=== PATIENT | female | born 1935 | race Caucasian/White ===

== ENCOUNTER → 2016-06-30 | Outpatient (CLI) | payer MEDICARE, OTHER ==
[2016-06-30 11:08] LABS: ABSOLUTE BASOPHILS # (AUTO) 0.1 10^3/uL (0.0-0.2); ABSOLUTE EOSINOPHILS # (AUTO) 0.3 10^3/uL (0.0-0.6); ABSOLUTE LYMPHOCYTES (AUTO) 3.3 10^3/uL (0.5-4.7); ABSOLUTE NEUT (AUTO) 3.7 10^3/uL (1.7-8.2); BASOPHILS % (AUTO) 1.1 % (0-2); EOSINOPHILS % (AUTO) 3.8 % (0-6); HEMOGLOBIN 14.9 g/dL (12.0-15.5); HGB HCT DIFFERENCE 1.7; LYMPHOCYTES % (AUTO) 39.2 % (13-45); MEAN CORPUSCULAR HEMOGLOBIN 29.6 pg (27.0-33.4); MEAN CORPUSCULAR HGB CONC 34.7 g/dL (32.0-36.0); MEAN CORPUSCULAR VOLUME 85 fl (80-97); MONOCYTES % (AUTO) 11.7 % (3-13); RED BLOOD COUNT 5.04 10^6/uL (3.72-5.28); RED CELL DISTRIBUTION WIDTH 14.1 % (11.5-14.0); SEGMENTED NEUTROPHILS % (AUTO) 44.2 % (42-78); WHITE BLOOD COUNT 8.4 10^3/uL (4.0-10.5)
[2016-06-30 11:19] LABS: PROTHROMBIN TIME 26.9 SEC (11.4-15.4)
[2016-06-30 11:28] LABS: ALANINE AMINOTRANSFERASE 34 U/L (9-52); ALBUMIN 4.4 g/dL (3.5-5.0); ALKALINE PHOSPHATASE 107 U/L (38-126); ANION GAP 13 (5-19); ASPARTATE AMINO TRANSFERASE 38 U/L (14-36); BLOOD UREA NITROGEN 16 mg/dL (7-20); CALCIUM 9.8 mg/dL (8.4-10.2); CARBON DIOXIDE 30 mmol/L (22-30); CHLORIDE 99 mmol/L (98-107); CHOLESTEROL 158.31 mg/dL (0-200); CREATININE RESULT 0.99 mg/dL (0.52-1.25); Direct HDL 60 mg/dL (>40); GLUCOSE 96 mg/dL (75-110); POTASSIUM 4.1 mmol/L (3.6-5.0); SODIUM 142.2 mmol/L (137-145); TRIGLYCERIDES 92 mg/dL (<150)
[2016-06-30 11:39] LABS: DIRECT LDL 78 mg/dL (<100)
== END ==
LOC: OD 10:06
PROVIDERS: ATTEND Internal Medicine
DX: E11.9 Type 2 diabetes mellitus without complications (principal); I25.10 Atherosclerotic heart disease of native coronary artery without angina pectoris; R53.83 Other fatigue; E78.5 Hyperlipidemia, unspecified; I48.91 Unspecified atrial fibrillation
CPT/HCPCS: 36415; 80053; 80061; 83036; 83735; 84443; 85025; 85610

== ENCOUNTER → 2016-07-22 | Outpatient (CLI) | payer MEDICARE, OTHER ==
[2016-07-22 13:53] LABS: PROTHROMBIN TIME 26.7 SEC (11.4-15.4)
== END ==
LOC: OD 12:18
PROVIDERS: ATTEND Internal Medicine
DX: Z79.01 Long term (current) use of anticoagulants (principal)
CPT/HCPCS: 36415; 85610

== ENCOUNTER → 2016-09-05 | Outpatient (CLI) | payer MEDICARE, OTHER ==
[2016-09-05 12:54] LABS: PROTHROMBIN TIME 27.6 SEC (11.4-15.4)
== END ==
LOC: OD 11:44
PROVIDERS: ATTEND Internal Medicine
DX: Z51.81 Encounter for therapeutic drug level monitoring (principal); Z79.01 Long term (current) use of anticoagulants
CPT/HCPCS: 36415; 85610

== ENCOUNTER → 2016-10-10 | Outpatient (CLI) | payer MEDICARE, OTHER ==
[2016-10-10 12:31] LABS: PROTHROMBIN TIME 23.6 SEC (11.4-15.4)
== END ==
LOC: OD 11:22
PROVIDERS: ATTEND Internal Medicine
DX: Z51.81 Encounter for therapeutic drug level monitoring (principal); Z79.01 Long term (current) use of anticoagulants
CPT/HCPCS: 36415; 85610

== ENCOUNTER → 2016-11-28 | Outpatient (CLI) | payer MEDICARE, OTHER ==
[2016-11-28 13:43] LABS: PROTHROMBIN TIME 25.9 SEC (11.4-15.4)
== END ==
LOC: OD 12:32
PROVIDERS: ATTEND Internal Medicine
DX: Z79.01 Long term (current) use of anticoagulants (principal)
CPT/HCPCS: 36415; 85610

== ENCOUNTER → 2016-12-19 | Outpatient (CLI) | payer MEDICARE, OTHER ==
[2016-12-19 15:24] LABS: PROTHROMBIN TIME 22.9 SEC (11.4-15.4)
== END ==
LOC: OD 13:53
PROVIDERS: ATTEND Internal Medicine
DX: Z79.01 Long term (current) use of anticoagulants (principal)
CPT/HCPCS: 36415; 85610

== ENCOUNTER 2016-12-27 12:10 | Emergency (ER) | payer MEDICARE, OTHER ==
[2016-12-27 14:03] LABS: ABSOLUTE BASOPHILS # (AUTO) 0.1 10^3/uL (0.0-0.2); ABSOLUTE EOSINOPHILS # (AUTO) 0.2 10^3/uL (0.0-0.6); ABSOLUTE LYMPHOCYTES (AUTO) 2.7 10^3/uL (0.5-4.7); ABSOLUTE MONOCYTES (AUTO) 0.8 10^3/uL (0.1-1.4); ABSOLUTE NEUT (AUTO) 4.6 10^3/uL (1.7-8.2); BASOPHILS % (AUTO) 0.9 % (0-2); EOSINOPHILS % (AUTO) 2.8 % (0-6); HEMATOCRIT 41.6 % (36.0-47.0); HEMOGLOBIN 13.7 g/dL (12.0-15.5); HGB HCT DIFFERENCE -0.5; LYMPHOCYTES % (AUTO) 31.7 % (13-45); MEAN CORPUSCULAR HEMOGLOBIN 28.8 pg (27.0-33.4); MEAN CORPUSCULAR HGB CONC 32.8 g/dL (32.0-36.0); MEAN CORPUSCULAR VOLUME 88 fl (80-97); MONOCYTES % (AUTO) 9.9 % (3-13); RED BLOOD COUNT 4.74 10^6/uL (3.72-5.28); RED CELL DISTRIBUTION WIDTH 14.6 % (11.5-14.0); SEGMENTED NEUTROPHILS % (AUTO) 54.7 % (42-78); WHITE BLOOD COUNT 8.5 10^3/uL (4.0-10.5)
--- NOTE | 2016-12-27 14:06 | ER Document Report ---
ED General - General Chief Complaint: Laceration Stated Complaint: LACERATION TO RIGHT LEG Time Seen by Provider: 12/27/16 12:18 Mode of Arrival: Ambulatory Information source: Patient Notes: 81-year-old female who is on Coumadin for a history of A. fib presents with complaints of bleeding extensively from an abrasion to the right medial calf. Patient denies any other concerns denies any other injuries patient notes her Coumadin was checked yesterday it appears patient was recently started on antibiotics by my care physician TRAVEL OUTSIDE OF THE [place] IN LAST 30 DAYS: No - HPI Onset: Just prior to arrival Onset/Duration: Sudden Quality of pain: No pain Severity: Moderate Pain Level: Denies Associated symptoms: None Exacerbated by: Denies Relieved by: Denies Similar symptoms previously: No Recently seen / treated by doctor: No - Related Data Allergies/Adverse Reactions: [place] And Derivatives Allergy (Unknown, Verified 11/11/14 07:46) meperidine HCl [From Demerol] Allergy (Unknown, Verified 11/11/14 07:46) Sulfa (Sulfonamide Antibiotics) Allergy (Unknown, Verified 11/11/14 07:46) morphine [Morphine] Adverse Reaction (Intermediate, Verified 11/11/14 07:46) Vomiting amoxicillin trihydrate [From Augmentin] Adverse Reaction (Unknown, Verified 07:46) Potassium Clavulanate * [From Augmentin] Adverse Reaction (Unknown, Verified 07:46) Past Medical History - Social History Smoking Status: Never Smoker Cigarette use (# per day): No Chew tobacco use (# tins/day): No Smoking Education Provided: No Family History: Reviewed & Not Pertinent - Past Medical History Cardiac Medical History: Reports: Hx Atrial Fibrillation, Hx Coronary Artery Disease, Hx Hypercholesterolemia, Hx Hypertension Pulmonary Medical History: Reports: Hx COPD Endocrine Medical History: Reports: Hx Diabetes Mellitus Type 2 GI Medical History: Reports: Hx Gastroesophageal Reflux Disease Past Surgical History: Reports: Hx Bowel Surgery - exploratory, Hx Breast Surgery - cyst removal, Hx Cholecystectomy, Hx Hysterectomy, Hx Pancreatic Surgery - Immunizations Hx Diphtheria, Pertussis, Tetanus Vaccination: Yes Hx Pneumococcal Vaccination: 06/19/11 Review of Systems - Review of Systems Notes: REVIEW OF SYSTEMS: CONSTITUTIONAL : Denies fever, chills, or sweats. Denies recent illness. EENT: Denies eye, ear, throat, or mouth pain or symptoms. Denies nasal or sinus congestion or discharge. Denies throat, tongue, or mouth swelling or difficulty swallowing. CARDIOVASCULAR: Denies chest pain. Denies palpitations or racing or irregular heart beat. Denies ankle edema. RESPIRATORY: Denies cough, cold, or chest congestion. Denies shortness of breath, difficulty breathing, or wheezing. GASTROINTESTINAL: Denies abdominal pain or distention. Denies nausea, vomiting , or diarrhea. Denies blood in vomitus, stools, or per rectum. Denies black, tarry stools. Denies constipation. GENITOURINARY: Denies difficulty urinating, painful urination, burning, frequency, blood in urine, or discharge. MUSCULOSKELETAL: Denies back or neck pain or stiffness. Denies joint pain or swelling. SKIN: Denies rash, lesions or sores. HEMATOLOGIC : State easy bleeding LYMPHATIC: Denies swollen, enlarged glands. NEUROLOGICAL: Denies confusion or altered mental status. Denies passing out or loss of consciousness. Denies dizziness or lightheadedness. Denies headache. Denies weakness or paralysis or loss of use of either side. Denies problems with gait or speech. Denies sensory loss, numbness, or tingling. Denies seizures. PSYCHIATRIC: Denies anxiety or stress. Denies depression, suicidal ideation, or homicidal ideation. ALL OTHER SYSTEMS REVIEWED AND NEGATIVE. Dictation was performed using [employer] voice recognition software PHYSICAL EXAMINATION: GENERAL: Well-appearing, well-nourished and in no acute distress. HEAD: Atraumatic, normocephalic. EYES: Pupils equal round and reactive to light, extraocular movements intact, sclera anicteric, conjunctiva are normal. ENT: Nares patent, oropharynx clear without exudates. Moist mucous membranes. NECK: Normal range of motion, supple without lymphadenopathy LUNGS: Breath sounds clear to auscultation bilaterally and equal. No wheezes rales or rhonchi. HEART: Regular rate and rhythm without murmurs ABDOMEN: Soft, nontender, nondistended abdomen. No guarding, no rebound. No masses appreciated. Musculoskeletal: Normal range of motion, no pitting or edema. No cyanosis. NEUROLOGICAL: Cranial nerves grossly intact. Normal speech, normal gait. Normal sensory, motor exams PSYCH: Normal mood, normal affect. SKIN: Superficial abrasion of the right medial calf above the varicose vein Course - Re-evaluation Re-evalutation: 12/27/16 14:07 Patient did have a large amount of blood, this was cleaned and only a small abrasion noted, she was recently started on antibiotics therefore I will recheck her PT/INR 12/27/16 14:14 INR is noted to be 1.82, patient otherwise looks well will be discharged home After performing a Medical Screening Examination, I estimate there is LOW risk for OPEN FRACTURE, COMPARTMENT SYNDROME, TENDON RUPTURE, ACUTE NEUROVASCULAR INJURY, or RETAINED FOREIGN BODY, thus I consider the discharge disposition reasonable. Also, there is no evidence or peritonitis, sepsis, or toxicity. I have reevaluated this patient multiple times and no significant life threatening changes are noted. The patient and I have discussed the diagnosis and risks, and we agree with discharging home with close follow-up with the understanding that symptoms and presentations can change. We also discussed returning to the Emergency Department immediately if new or worsening symptoms occur. We have discussed the symptoms which are most concerning (e.g., changing or worsening pain, fever, numbness, weakness, cool or painful digits) that necessitate immediate return. - Laboratory Result Diagrams: 12/27/16 13:52 Laboratory results interpreted by me: 12/27/16 12/27/16 13:52 13:52 RDW 14.6 H PT 22.1 H Discharge - Discharge Clinical Impression: Active bleeding on blood thinner Condition: Stable Disposition: HOME, SELF-CARE Instructions: Delayed Wound Closure ([facility]), Puncture Wound ([facility]) Referrals: NARESH PERALES MD [Primary Care Provider] - Follow up tomorrow
[2016-12-27 14:07] LABS: PROTHROMBIN TIME 22.1 SEC (11.4-15.4)
[2016-12-27 14:48] VITALS: BP 171/84
== END 2016-12-27 14:46 | disposition home or self-care (01) ==
LOC: ER 12:10
DX: R58 Hemorrhage, not elsewhere classified (principal); I48.91 Unspecified atrial fibrillation; E11.9 Type 2 diabetes mellitus without complications; I25.10 Atherosclerotic heart disease of native coronary artery without angina pectoris; E78.00 Pure hypercholesterolemia, unspecified; I10 Essential (primary) hypertension; J44.9 Chronic obstructive pulmonary disease, unspecified; K21.9 Gastro-esophageal reflux disease without esophagitis; Z79.02 Long term (current) use of antithrombotics/antiplatelets; Z88.2 Allergy status to sulfonamides; Z88.6 Allergy status to analgesic agent; Z90.49 Acquired absence of other specified parts of digestive tract; Z90.710 Acquired absence of both cervix and uterus
CPT/HCPCS: 36415; 85025; 85610; 99283

== ENCOUNTER → 2017-01-09 | Outpatient (CLI) | payer MEDICARE, OTHER ==
[2017-01-09 12:33] LABS: PROTHROMBIN TIME 22.5 SEC (11.4-15.4)
== END ==
LOC: OD 11:39
PROVIDERS: ATTEND Internal Medicine
DX: Z51.81 Encounter for therapeutic drug level monitoring (principal); Z79.01 Long term (current) use of anticoagulants
CPT/HCPCS: 36415; 85610

== ENCOUNTER → 2017-01-23 | Outpatient (CLI) | payer MEDICARE, OTHER ==
[2017-01-23 13:09] LABS: PROTHROMBIN TIME 26.5 SEC (11.4-15.4)
== END ==
LOC: OD 12:28
PROVIDERS: ATTEND Internal Medicine
DX: Z51.81 Encounter for therapeutic drug level monitoring (principal); Z79.01 Long term (current) use of anticoagulants
CPT/HCPCS: 36415; 85610

== ENCOUNTER → 2017-02-23 | Outpatient (CLI) | payer MEDICARE, OTHER ==
[2017-02-23 14:52] LABS: PROTHROMBIN TIME 21.1 SEC (11.4-15.4)
== END ==
LOC: OD 10:31
PROVIDERS: ATTEND Internal Medicine
DX: Z79.01 Long term (current) use of anticoagulants (principal)
CPT/HCPCS: 36415; 85610

== ENCOUNTER → 2017-03-31 | Outpatient (CLI) | payer MEDICARE, OTHER ==
[2017-03-31 12:31] LABS: PROTHROMBIN TIME 25.7 SEC (11.4-15.4)
== END ==
LOC: OD 11:24
PROVIDERS: ATTEND Internal Medicine
DX: Z79.01 Long term (current) use of anticoagulants (principal)
CPT/HCPCS: 36415; 85610

== ENCOUNTER → 2017-05-02 | Outpatient (CLI) | payer MEDICARE, OTHER | LOC: OD 12:12 | PROVIDERS: ATTEND Internal Medicine | DX: Z51.81 Encounter for therapeutic drug level monitoring (principal); Z79.01 Long term (current) use of anticoagulants | CPT/HCPCS: 36415; 85610 ==

== ENCOUNTER → 2017-06-09 | Outpatient (CLI) | payer MEDICARE, OTHER | LOC: OD 11:59 | PROVIDERS: ATTEND Internal Medicine | DX: I48.0 Paroxysmal atrial fibrillation (principal); Z79.01 Long term (current) use of anticoagulants | CPT/HCPCS: 36415; 85610 ==

== ENCOUNTER → 2017-07-13 | Outpatient (CLI) | payer MEDICARE, OTHER ==
[2017-07-13 12:02] LABS: INTERNATIONAL RATION (INR) 2.75; PROTHROMBIN TIME 30.5 SEC (11.4-15.4)
== END ==
LOC: OD 10:55
PROVIDERS: ATTEND Internal Medicine
DX: I48.0 Paroxysmal atrial fibrillation (principal); Z79.01 Long term (current) use of anticoagulants
CPT/HCPCS: 36415; 85610

== ENCOUNTER → 2017-08-28 | Outpatient (CLI) | payer MEDICARE, OTHER ==
[2017-08-28 14:14] LABS: INTERNATIONAL RATION (INR) 1.91; PROTHROMBIN TIME 22.9 SEC (11.4-15.4)
== END ==
LOC: OD 12:42
PROVIDERS: ATTEND Internal Medicine
DX: I48.0 Paroxysmal atrial fibrillation (principal); Z79.01 Long term (current) use of anticoagulants
CPT/HCPCS: 36415; 85610

== ENCOUNTER → 2017-09-14 | Outpatient (CLI) | payer MEDICARE, OTHER ==
[2017-09-14 15:08] LABS: PROTHROMBIN TIME 25.6 SEC (11.4-15.4)
== END ==
LOC: OD 13:27
PROVIDERS: ATTEND Internal Medicine
DX: I48.0 Paroxysmal atrial fibrillation (principal); Z79.01 Long term (current) use of anticoagulants
CPT/HCPCS: 36415; 85610

== ENCOUNTER → 2017-10-18 | Outpatient (CLI) | payer MEDICARE, OTHER ==
[2017-10-18 15:45] LABS: PROTHROMBIN TIME 28.2 SEC (11.4-15.4)
== END ==
LOC: OD 14:29
PROVIDERS: ATTEND Internal Medicine
DX: I48.0 Paroxysmal atrial fibrillation (principal); Z79.01 Long term (current) use of anticoagulants
CPT/HCPCS: 36415; 85610

== ENCOUNTER → 2017-11-24 | Outpatient (CLI) | payer MEDICARE, OTHER ==
[2017-11-24 14:57] LABS: INTERNATIONAL RATION (INR) 2.72; PROTHROMBIN TIME 30.1 SEC (11.4-15.4)
== END ==
LOC: OD 13:58
PROVIDERS: ATTEND Internal Medicine
DX: I48.2 Chronic atrial fibrillation (principal)
CPT/HCPCS: 36415; 85610

== ENCOUNTER → 2018-01-01 | Outpatient (CLI) | payer MEDICARE, OTHER ==
[2018-01-01 12:43] LABS: INTERNATIONAL RATION (INR) 2.38; PROTHROMBIN TIME 27.1 SEC (11.4-15.4)
== END ==
LOC: OD 11:40
PROVIDERS: ATTEND Internal Medicine
DX: I48.2 Chronic atrial fibrillation (principal)
CPT/HCPCS: 36415; 85610

== ENCOUNTER → 2018-01-19 | Outpatient (CLI) | payer MEDICARE, OTHER ==
[2018-01-19 14:13] LABS: INTERNATIONAL RATION (INR) 2.43; PROTHROMBIN TIME 27.6 SEC (11.4-15.4)
== END ==
LOC: OD 13:18
PROVIDERS: ATTEND Internal Medicine
DX: I48.2 Chronic atrial fibrillation (principal)
CPT/HCPCS: 36415; 85610

== ENCOUNTER → 2018-04-02 | Outpatient (CLI) | payer MEDICARE, OTHER ==
[2018-04-02 13:54] LABS: INTERNATIONAL RATION (INR) 1.68; PROTHROMBIN TIME 20.6 SEC (11.4-15.4)
== END ==
LOC: OD 12:44
PROVIDERS: ATTEND Internal Medicine
DX: I48.2 Chronic atrial fibrillation (principal)
CPT/HCPCS: 36415; 85610

== ENCOUNTER → 2018-04-17 | Outpatient (CLI) | payer MEDICARE, OTHER ==
[2018-04-17 15:52] LABS: INTERNATIONAL RATION (INR) 4.04; PROTHROMBIN TIME 41.1 SEC (11.4-15.4)
== END ==
LOC: OD 14:24
PROVIDERS: ATTEND Internal Medicine
DX: I48.2 Chronic atrial fibrillation (principal)
CPT/HCPCS: 36415; 85610

== ENCOUNTER → 2018-05-16 | Outpatient (CLI) | payer MEDICARE, OTHER ==
[2018-05-16 12:25] LABS: INTERNATIONAL RATION (INR) 2.29; PROTHROMBIN TIME 26.3 SEC (11.4-15.4)
== END ==
LOC: OD 11:37
PROVIDERS: ATTEND Internal Medicine
DX: I48.2 Chronic atrial fibrillation (principal)
CPT/HCPCS: 36415; 85610

== ENCOUNTER 2018-07-28 13:16 | Inpatient (IN) | payer MEDICARE ==
[2018-07-28 14:06] LABS: ABSOLUTE BASOPHILS # (AUTO) 0.1 10^3/uL (0.0-0.2); ABSOLUTE LYMPHOCYTES (AUTO) 1.2 10^3/uL (0.5-4.7); ABSOLUTE MONOCYTES (AUTO) 1.1 10^3/uL (0.1-1.4); ABSOLUTE NEUT (AUTO) 5.1 10^3/uL (1.7-8.2); BASOPHILS % (AUTO) 0.8 % (0-2); EOSINOPHILS % (AUTO) 0.5 % (0-6); HEMATOCRIT 43.7 % (36.0-47.0); HEMOGLOBIN 14.9 g/dL (12.0-15.5); LYMPHOCYTES % (AUTO) 15.8 % (13-45); MEAN CORPUSCULAR HEMOGLOBIN 30.3 pg (27.0-33.4); MEAN CORPUSCULAR HGB CONC 34.1 g/dL (32.0-36.0); MEAN CORPUSCULAR VOLUME 89 fl (80-97); MONOCYTES % (AUTO) 14.8 % (3-13); PLATELET COUNT 178 10^3/uL (150-450); RED BLOOD COUNT 4.91 10^6/uL (3.72-5.28); RED CELL DISTRIBUTION WIDTH 14.3 % (11.5-14.0); SEGMENTED NEUTROPHILS % (AUTO) 68.1 % (42-78); TOTAL CELLS COUNTED % (AUTO) 100 %; WHITE BLOOD COUNT 7.5 10^3/uL (4.0-10.5)
[2018-07-28 14:21] LABS: ALANINE AMINOTRANSFERASE 20 U/L (9-52); ALBUMIN 4.9 g/dL (3.5-5.0); ALKALINE PHOSPHATASE 104 U/L (38-126); ANION GAP 13 (5-19); ASPARTATE AMINO TRANSFERASE 49 U/L (14-36); BILIRUBIN,DIRECT 0.4 mg/dL (0.0-0.4); BILIRUBIN,TOTAL 1.1 mg/dL (0.2-1.3); BLOOD UREA NITROGEN 14 mg/dL (7-20); CALCIUM 9.3 mg/dL (8.4-10.2); CARBON DIOXIDE 28 mmol/L (22-30); CHLORIDE 97 mmol/L (98-107); CREATINE KINASE 83 U/L (30-135); GLUCOSE 138 mg/dL (75-110); SODIUM 138.4 mmol/L (137-145); TOTAL PROTEIN 8.9 g/dL (6.3-8.2)
[2018-07-28 14:33] LABS: TROPONIN I < 0.012 ng/mL
[2018-07-28 15:24] LABS: APPEARANCE,URINE CLEAR; COLOR,URINE STRAW; GLUCOSE, URINE NEGATIVE (NEGATIVE)
--- NOTE | 2018-07-28 15:24 | RADIOLOGY REPORT (SQ) ---
EXAM DESCRIPTION: CHEST SINGLE VIEW COMPLETED DATE/TIME: 07/28/2018 2:36 pm REASON FOR STUDY: Cough, altered mental status COMPARISON: None. EXAM PARAMETERS: NUMBER OF VIEWS: One view. TECHNIQUE: Single frontal radiographic view of the chest acquired. RADIATION DOSE: NA LIMITATIONS: None. FINDINGS: LUNGS AND PLEURA: No acute infiltrates or effusions. Blunting left costophrenic angle con sistent with pleural thickening. Bilateral apical pleural thickening. MEDIASTINUM AND HILAR STRUCTURES: No masses. Contour normal. HEART AND VASCULAR STRUCTURES: Normal heart size and aortic atherosclerosis. Pulmonary vasculature i s normal. Aortic atherosclerosis. BONES: No acute findings. HARDWARE: None in the chest. OTHER: No other significant finding. IMPRESSION: NO ACUTE DISEASE. TECHNICAL DOCUMENTATION: JOB ID: [id number] [id number] 2010 [employer]- All Rights Reserved Reading location - IP/workstation name: [email or web address]
[2018-07-28 15:25] LABS: BILIRUBIN,URINE NEGATIVE (NEGATIVE); KETONES,URINE NEGATIVE (NEGATIVE); LEUKOCYTE ESTERASE,URINE NEGATIVE (NEGATIVE); NITRITE,URINE NEGATIVE (NEGATIVE); PROTEIN,URINE NEGATIVE (NEGATIVE); UROBILINOGEN,URINE NEGATIVE mg/dL (<2.0)
--- NOTE | 2018-07-28 16:34 | RADIOLOGY REPORT (SQ) ---
EXAM DESCRIPTION: CT HEAD WITHOUT COMPLETED DATE/TIME: 07/28/2018 4:01 pm REASON FOR STUDY: Altered mental status COMPARISON: None. TECHNIQUE: Axial images acquired through the brain without intravenous contrast. Images reviewed wi th bone, brain and subdural windows. Images stored on PACS. All CT scanners at this facility use dose modulation, iterative reconstruction, and/or weight based d osing when appropriate to reduce radiation dose to as low as reasonably achievable (ALARA). [facility]: Dose Right [facility]: CareDose [facility]: Dose Right [facility]: Teradose 4D [facility]: Gamervision RADIATION DOSE: CT Rad equipment meets quality standard of care and radiation dose reduction techniq ues were employed. CTDIvol: 53.2 mGy. DLP: 991 mGy-cm. mGy. LIMITATIONS: None. FINDINGS: VENTRICLES: Prominent. CEREBRUM: No masses. No hemorrhage. No midline shift. Areas of low density in the white matter mos t likely due to chronic micro-vascular ischemic change. No evidence for acute infarction. CEREBELLUM: No masses. No hemorrhage. No alteration of density. No evidence for acute infarction. EXTRAAXIAL SPACES: Mild age-related involutional change. No fluid collections. No masses. ORBITS AND GLOBE: No intra- or extraconal masses. Normal contour of globe without masses. CALVARIUM: No fracture. PARANASAL SINUSES: Small left maxillary sinus air-fluid level. SOFT TISSUES: No mass or hematoma. OTHER: No other significant finding. IMPRESSION: No acute intracranial findings. Acute appearing Left maxillary sinusitis. EVIDENCE OF ACUTE STROKE: NO. TECHNICAL DOCUMENTATION: JOB ID: [id number] Quality ID # [id number]: Final reports with documentation of one or more dose reduction techniques (e.g., Au tomated exposure control, adjustment of the mA and/or kV according to patient size, use of iterative reconstruction technique) 2010 [employer]- All Rights Reserved Reading location - IP/workstation name: [email or web address]
--- NOTE | 2018-07-28 16:45 | ER Document Report ---
ED Dizziness/Weakness - General Chief Complaint: General Weakness Stated Complaint: COUGH/CONGESTION Time Seen by Provider: 07/28/18 14:05 TRAVEL OUTSIDE OF THE [place] IN LAST 30 DAYS: No - HPI Notes: Patient presents to the emergency department for evaluation. Her daughter is the primary historian. Evidently the patient has had a cough over the last several days. This morning she has been exceptionally weak. She is unable to walk without assistance. She seems to be falling asleep in the middle of conversations. This is a significant change from her baseline. Patient also notes she has had some dysuria. - Related Data Allergies/Adverse Reactions: [place] And Derivatives Allergy (Unknown, Verified 07/28/18 13:19) meperidine HCl [From Demerol] Allergy (Unknown, Verified 07/28/18 13:19) Sulfa (Sulfonamide Antibiotics) Allergy (Unknown, Verified 07/28/18 13:19) morphine [Morphine] Adverse Reaction (Intermediate, Verified 07/28/18 13:19) Vomiting amoxicillin trihydrate [From Augmentin] Adverse Reaction (Unknown, Verified 07/28/18 13:19) Potassium Clavulanate * [From Augmentin] Adverse Reaction (Unknown, Verified 07/28/18 13:19) Past Medical History - General Information source: Patient, Relative - Daughter - Social History Smoking Status: Never Smoker Family History: Reviewed & Not Pertinent Patient has suicidal ideation: No Patient has homicidal ideation: No - Past Medical History Cardiac Medical History: Reports: Hx Atrial Fibrillation, Hx Coronary Artery Disease, Hx Hypercholesterolemia, Hx Hypertension Pulmonary Medical History: Reports: Hx COPD Endocrine Medical History: Reports: Hx Diabetes Mellitus Type 2 Renal/ Medical History: Denies: Hx Peritoneal Dialysis GI Medical History: Reports: Hx Gastroesophageal Reflux Disease Past Surgical History: Reports: Hx Bowel Surgery - exploratory, Hx Breast Surgery - cyst removal, Hx Cholecystectomy, Hx Hysterectomy, Hx Pancreatic Surgery - Immunizations Hx Diphtheria, Pertussis, Tetanus Vaccination: Yes Hx Pneumococcal Vaccination: 06/19/11 Review of Systems - Review of Systems Constitutional: Malaise EENT: No symptoms reported Respiratory: Cough Genitourinary: Dysuria Musculoskeletal: No symptoms reported Skin: No symptoms reported Hematologic/Lymphatic: No symptoms reported Neurological/Psychological: No symptoms reported Physical Exam - Vital signs Vitals: Temp Pulse Resp BP Pulse Ox 98.7 F 79 20 149/65 H 95 07/28/18 13:31 07/28/18 13:31 07/28/18 13:31 07/28/18 13:31 07/28/18 13:31 Notes: Patient mildly hypertensive, but otherwise unremarkable - Notes Notes: Patient is normocephalic, atraumatic. Pupils equal round reactive to light. Oral mucosa is moist, pharynx is without erythema or exudate. Neck is supple without thyromegaly or adenopathy. No meningismus. Heart is regular rate and rhythm. Lungs are clear to auscultation bilaterally. Abdomen is soft nontender with normoactive bowel sounds. Extremities without cyanosis, clubbing, edema. Patient is drowsy. She is able to answer questions but falls asleep after many of them. She is oriented to person, place, time. She moves all 4 extremities spontaneously. She is cooperative with examiner. Skin is warm and dry. Course - Re-evaluation Re-evalutation: 07/28/18 16:42 Patient presents to the emergency department for evaluation of altered mental status. She is definitely drowsy but her vital signs are unremarkable. She is protecting her own airway. Laboratory investigations were largely unremarkable. Catheterized urine specimen does not reveal any signs of infection. CT scan is unremarkable for anything acute or cranially, and she continues to have no focal neurological deficits. There is a note of some left maxillary sinusitis. I am unsure of the etiology of this patient's altered mental status at this time. Her chest x-ray is unremarkable. Will admit the patient for further care. 07/28/18 18:33 Patient is already admitted. There is no clear etiology for her altered mental status. I was notified of her becoming nauseated and complaining of some abdominal pain. Abdomen was examined. It was soft and diffusely tender. CT scan of the abdomen and pelvis with IV contrast ordered. She is given more IV Zofran. - Vital Signs Vital signs: Temp Pulse Resp BP Pulse Ox 98.8 F 120 H 22 H 153/92 H 96 07/28/18 18:20 07/28/18 18:20 07/28/18 18:20 07/28/18 18:20 07/28/18 18:20 - Laboratory Result Diagrams: 07/28/18 13:50 07/28/18 13:50 Laboratory results interpreted by me: 02/03/0707/28/18 07/28/18 13:50 13:50 14:57 RDW 14.3 H Monocytes % 14.8 H Chloride 97 L Est GFR (Non-Af Amer) 54 L Glucose 138 H AST 49 H Total Protein 8.9 H Urine Blood SMALL H - Diagnostic Test Radiology reviewed: Image reviewed, Reports reviewed - EKG Interpretation by Me Additional EKG results interpreted by me: 07/28/18 16:41 EKG reveals atrial fibrillation with a rate of [address]-T wave changes but no acute changes concerning for ischemia or infarction. Discharge - Discharge Clinical Impression: Altered mental status, unspecified Qualifiers: Altered mental status type: disorientation Qualified Code(s): R41.0 - Disorientation, unspecified Condition: Fair Disposition: ADMITTED INPATIENT Admitting Provider: Hospitalist - Ivan Unit Admitted: Medical Floor
[2018-07-28] MEDS ORDERED: ONDANSETRON 4 MG TAB.RAPDIS PO PRN (17:28)
[2018-07-28] MEDS ORDERED: ACETAMINOPHEN 325 MG TABLET PO PRN (17:28)
[2018-07-28] MEDS ORDERED: IPRATROPIUM/ALBUTEROL 0.5-2.5 MG/3 ML AMPUL NEB PRN (17:45)
--- NOTE | 2018-07-28 18:09 | PDOC H&P ---
History of Present Illness Admission Date/PCP: 07/28/18 17:25 NARESH PERALES MD Patient complains of: confusion, weakness History of Present Illness: DEVANG CORONEL is a 83 year old female with history of multiple co-morbidities including chronic Afib, HTN, T2DM, dementia, and RLS who presents with 1 day of altered mental status, generalized weakness, and somnolence. Due to AMS, majority of history was obtained from patient's daughter who was bedside in the ED. Patient was in her usual health 48 hours ago. Notable history dates back to 2 weeks ago, when she was treated for bronchitis/respiratory illness by her PCP. There was also concern for shingles however it is unclear if she received anti- virals due to intolerance with antibiotics. Patient completed course and was doing OK. She did complain of coughing and subjective fevers over the last few days. Patient's daughter has similar symptomology. However this morning, patient significantly worse than previous. She was unable to stay awake despite prompting. She also complained of weakness and was unable to get up by herself. She continues to have cough. Unable to obtain additional information form patient. She does open eyes when prompted. Unable to localize pain or any focal symptoms however does appear uncomfortable. She did tell RN in ED that he was having urinary pain/discomfort. Work up in ED was largely unremarkable. CXR, UA, and CT head were negative for acute abnormalities. Labs were also unrevealing. Will admit to hospitalist service on telemetry for further evaluation. Past Medical History Cardiac Medical History: Reports: Atrial Fibrillation, Coronary Artery Disease, Hyperlipidema, Hypertension Pulmonary Medical History: Reports: Chronic Obstructive Pulmonary Disease (COPD) Endocrine Medical History: Reports: Diabetes Mellitus Type 2 GI Medical History: Reports: Gastroesophageal Reflux Disease Past Surgical History Past Surgical History: Reports: Cholecystectomy, Hysterectomy Social History Information Source: Relative - Daughter Lives with: Alone Smoking Status: Never Smoker Frequency of Alcohol Use: None Hx Recreational Drug Use: No Hx Prescription Drug Abuse: No Family History Family History: Reviewed & Not Pertinent Parental Family History Reviewed: No Children Family History Reviewed: NA Sibling(s) Family History Reviewed.: NA Medication/Allergy Home Medications: Amlodipine Besylate [Norvasc 5 mg Tablet] 5 mg PO DAILY 11/11/14 Aspirin [Aspirin EC] 81 mg PO DAILY 11/11/14 Atorvastatin Calcium [Lipitor] 20 mg PO DAILY 11/11/14 Cholecalciferol (Vitd3)/Vit K2 [D3 + K2 Dots 1,000 Units Tab] 1 each PO [id number] 11/11/14 Donepezil HCl [Aricept] 10 mg PO DAILY 11/11/14 Fluticasone/Salmeterol [Advair 250-50 Diskus 14 Dose/Diskus] 1 puff .ROUTE BID 11/11/14 Levothyroxine Sodium [Synthroid] 100 mcg PO DAILY 11/11/14 Metformin HCl [Glucophage XR 500 mg Tablet] 500 mg PO BID 11/11/14 Metoprolol Tartrate [Lopressor 25 mg Tablet] 0.25 tab PO BID 11/11/14 Mometasone Furoate [Nasonex] 50 mcg NAINH DAILY 11/11/14 Multivit with Calcium,Iron,Min [Multiple Vitamins For Women] 1 tab-cap PO DAILY 11/11/14 Nitroglycerin [Nitro-Dur 5 mg (0.2 mg/Hr) Transdermal Patch] 1 patch TD QAM 11/11/14 Omeprazole 20 mg PO DAILY 11/11/14 Pregabalin [Lyrica 75 mg Capsule] 75 mg PO DAILY 11/11/14 Sertraline HCl [Zoloft 50 mg Tablet] 50 mg PO DAILY 11/11/14 Tiotropium [place] [Spiriva Handihaler 18 mcg/dose (30 Dose)] 1 cap IH DAILY 11/11/14 Warfarin Sodium [Coumadin 5 mg Tablet] 5 mg PO DAILY 11/11/14 Ipratropium/Albuterol Sulfate [Combivent Respimat 4 gm Mdi] 1 puff IH Q6 PRN #1 [email or web address] 12/04/15 Allergies/Adverse Reactions: [place] And Derivatives Allergy (Unknown, Verified 07/28/18 13:19) meperidine HCl [From Demerol] Allergy (Unknown, Verified 07/28/18 13:19) Sulfa (Sulfonamide Antibiotics) Allergy (Unknown, Verified 07/28/18 13:19) morphine [Morphine] Adverse Reaction (Intermediate, Verified 07/28/18 13:19) Vomiting amoxicillin trihydrate [From Augmentin] Adverse Reaction (Unknown, Verified 07/28/18 13:19) Potassium Clavulanate * [From Augmentin] Adverse Reaction (Unknown, Verified 07/28/18 13:19) Review of Systems ROS unobtainable: Due to mental status - Per HPI with discussion with daughter Physical Exam Vital Signs: Temp Pulse Resp BP Pulse Ox 98.7 F 79 21 H 166/83 H 93 07/28/18 13:31 07/28/18 13:31 07/28/18 17:01 07/28/18 17:01 07/28/18 17:01 Intake & Output 07/27/18 07/28/18 07/29/18 06:59 06:59 06:59 Weight 70.45 kg General appearance: PRESENT: mild distress - General discomfort, well-developed, well-nourished Head exam: PRESENT: atraumatic, normocephalic Eye exam: PRESENT: EOMI, PERRLA Mouth exam: PRESENT: moist Cardiovascular exam: PRESENT: irregular rhythm, tachycardia, other GI/Abdominal exam: PRESENT: normal bowel sounds, soft, tenderness - Patient grimaced during exam but not localizing to any quadrant Extremities exam: ABSENT: +1 edema Neurological exam: PRESENT: other - Limited exam. Will open eyes and answers some questions. Speech fluent but not answering all questions appropriately. Psychiatric exam: PRESENT: anxious Skin exam: PRESENT: dry, intact, other - Unable to assess sacral area due to lack of patient cooperation Results Laboratory Results: 07/28/18 13:50 07/28/18 13:50 07/28/18 07/28/18 07/28/18 13:50 13:50 14:57 WBC 7.5 RBC 4.91 Hgb 14.9 Hct 43.7 MCV 89 MCH 30.3 MCHC 34.1 RDW 14.3 H Plt Count 178 Seg Neutrophils % 68.1 Lymphocytes % 15.8 Monocytes % 14.8 H Eosinophils % 0.5 Basophils % 0.8 Absolute Neutrophils 5.1 Absolute Lymphocytes 1.2 Absolute Monocytes 1.1 Absolute Eosinophils 0.0 Absolute Basophils 0.1 Sodium 138.4 Potassium 4.0 Chloride 97 L Carbon Dioxide 28 Anion Gap 13 BUN 14 Creatinine 0.98 Est GFR ( Amer) > 60 Est GFR (Non-Af Amer) 54 L Glucose 138 H Calcium 9.3 Total Bilirubin 1.1 AST 49 H ALT 20 Alkaline Phosphatase 104 Total Protein 8.9 H Albumin 4.9 Urine Color STRAW Urine Appearance CLEAR Urine pH 6.0 Ur Specific [place] 1.010 Urine Protein NEGATIVE Urine Glucose (UA) NEGATIVE Urine Ketones NEGATIVE Urine Blood SMALL H Urine Nitrite NEGATIVE Ur Leukocyte Esterase NEGATIVE 07/28/18 07/28/18 13:50 13:50 Creatine Kinase 83 CK-MB (CK-2) 0.40 Troponin I < 0.012 Impressions: Chest X-Ray 07/28/18 14:21 IMPRESSION: NO ACUTE DISEASE. Head CT 07/28/18 15:49 IMPRESSION: No acute intracranial findings. Acute appearing Left maxillary sinusitis. EVIDENCE OF ACUTE STROKE: NO. Assessment & Plan - Diagnosis (1) Altered mental status, unspecified Qualifiers: Altered mental status type: disorientation Qualified Code(s): R41.0 - Disorientation, unspecified Is this a current diagnosis for this admission?: Yes Plan: Unclear etiology. Acute presentation. Only localizing complaint is dysuria which patient noted to ED staff. - Afebrile and hemodynamically stable - Xray negative - U/A non-revealing - CT head without acute abnormality - Blood cultures pending Management - While no clear source of infection, will give Rocephin empirically * 1 dose - Holding sedating home meds such as Lyrica - Will check TSH given history of hypothyroidism (2) Diabetes mellitus Is this a current diagnosis for this admission?: Yes Plan: Holding home metformin - Ordered blood checks qAC/HS - Ordered low dose ISS (3) Atrial fibrillation Is this a current diagnosis for this admission?: Yes Plan: -Restarted home afib/cardiac medications - Restarted Warfarin 5mg daily - Will check INR in AM (4) Chronic obstructive lung disease Is this a current diagnosis for this admission?: Yes Plan: - Holding home meds - Ordered Duonebs q4 hours PRN - Time Time Spent: 50 to 70 Minutes Critical Time spent with patient: 15-24 minutes Medications reviewed and adjusted accordingly: Yes - Inpatient Certification Medical Necessity: Risk of Complication if Not Cared For in Hospital
[2018-07-28] MEDS ORDERED: ONDANSETRON HCL INJ/PF 4 MG/2 ML SDV ONE (18:24)
[2018-07-28] MEDS ORDERED: ONDANSETRON HCL INJ/PF 4 MG/2 ML SDV IV ONE (18:27)
[2018-07-28] MEDS ORDERED: CEFTRIAXONE 1 GM/D5W RTU 1 GM/50 ML RTUPB IV ONE (19:00)
[2018-07-28] MEDS ORDERED: METOPROLOL TARTRATE 25 MG TABLET PO ONE (19:08)
[2018-07-28] MEDS: METOPROLOL TARTRATE 25 MG TABLET PO SCH (19:10)
--- NOTE | 2018-07-28 20:13 | EKG REPORT ---
SEVERITY:- ABNORMAL ECG - ATRIAL FIBRILLATION, V-RATE 72-103 BORDERLINE RIGHT AXIS DEVIATION NONSPECIFIC REPOL ABNORMALITY, DIFFUSE LEADS BORDERLINE PROLONGED QT INTERVAL : Confirmed by: Lynette Yan 28-Jul-2018 20:12:55
--- NOTE | 2018-07-28 20:22 | RADIOLOGY REPORT (SQ) ---
EXAM DESCRIPTION: CT ABDOMEN PELVIS WITH IV CONTRAST COMPLETED DATE/TME: 07/28/2018 18:26 CLINICAL HISTORY: 83 years, Female, Abdominal pain, altered mental status COMPARISON: None. TECHNIQUE: [id number] Images stored on PACS. All CT scanners at this facility use dose modulation, iterative reconstruction, and/or weight based dosing when appropriate to reduce radiation dose to as low as reasonably achievable (ALARA). [facility]: Dose Right [facility]: CareDose [facility]: Dose Right [facility]: Teradose 4D [facility]: Voxy LIMITATIONS: None. FINDINGS: Limited evaluation of the lung bases shows cardiomegaly with subsegmental atelectasis in each lung base. Breathing motion artifact is noted. Osseous structures show degenerative changes of the lumbar spine but are otherwise grossly intact. Fatty infiltrative change to the liver. Status post cholecystectomy. The spleen, adrenal glands, pancreas, kidneys are unremarkable. Severe atheromatous change. No gross evidence for bowel structure and. Sigmoid diverticulosis. No significant surrounding inflammation to suggest acute diverticulitis. The appendix is not well seen however there is no pericecal inflammation. No free air or free fluid. Urinary bladder is not distended, limiting its evaluation. IMPRESSION: Negative for acute intra-abdominal/pelvic process. Sigmoid diverticulosis. No CT evidence for diverticulitis. Fatty infiltrative change to the liver. Severe atheromatous change. Cardiomegaly. TECHNICAL DOCUMENTATION: Quality ID # 436: Final reports with documentation of one or more dose reduction techniques (e.g., Automated exposure control, adjustment of the mA and/or kV according to patient size, use of iterative reconstruction technique) copyright 2011 [employer]- All Rights Reserved
[2018-07-28] MEDS: 1/2 NORMAL SALINE 1,000 ML IV PRN (20:31)
[2018-07-28] MEDS: WARFARIN SODIUM 5 MG TABLET PO SCH (23:04)
[2018-07-28] MEDS ORDERED: SERTRALINE HCL 50 MG TABLET PO ONE (23:15)
[2018-07-28] MEDS ORDERED: DONEPEZIL HCL 5 MG TABLET PO ONE (23:15)
[2018-07-29] MEDS: ACETAMINOPHEN 325 MG TABLET PO PRN ×3 (03:28→18:09)
[2018-07-29 05:00] LABS: ABSOLUTE BASOPHILS # (AUTO) 0.1 10^3/uL (0.0-0.2); ABSOLUTE LYMPHOCYTES (AUTO) 1.5 10^3/uL (0.5-4.7); ABSOLUTE NEUT (AUTO) 3.6 10^3/uL (1.7-8.2); BASOPHILS % (AUTO) 0.8 % (0-2); EOSINOPHILS % (AUTO) 0.1 % (0-6); HEMATOCRIT 40.7 % (36.0-47.0); HEMOGLOBIN 14.2 g/dL (12.0-15.5); LYMPHOCYTES % (AUTO) 24.4 % (13-45); MEAN CORPUSCULAR HEMOGLOBIN 30.7 pg (27.0-33.4); MEAN CORPUSCULAR HGB CONC 34.9 g/dL (32.0-36.0); MEAN CORPUSCULAR VOLUME 88 fl (80-97); MONOCYTES % (AUTO) 15.8 % (3-13); PLATELET COUNT 140 10^3/uL (150-450); RED BLOOD COUNT 4.62 10^6/uL (3.72-5.28); RED CELL DISTRIBUTION WIDTH 14.2 % (11.5-14.0); SEGMENTED NEUTROPHILS % (AUTO) 58.9 % (42-78); TOTAL CELLS COUNTED % (AUTO) 100 %; WHITE BLOOD COUNT 6.1 10^3/uL (4.0-10.5)
[2018-07-29 05:02] LABS: PROTHROMBIN TIME 18.8 SEC (11.4-15.4)
[2018-07-29 05:21] LABS: ANION GAP 11 (5-19); BLOOD UREA NITROGEN 15 mg/dL (7-20); CALCIUM 8.8 mg/dL (8.4-10.2); CARBON DIOXIDE 27 mmol/L (22-30); CHLORIDE 97 mmol/L (98-107); GLUCOSE 106 mg/dL (75-110); POTASSIUM 3.7 mmol/L (3.6-5.0); SODIUM 135.3 mmol/L (137-145)
[2018-07-29] MEDS: LEVOTHYROXINE SODIUM 0.05 MG TABLET PO SCH (05:50)
[2018-07-29] MEDS: LANSOPRAZOLE 15 MG TAB.RAP.DR PO SCH (05:50)
[2018-07-29] MEDS: 1/2 NORMAL SALINE 1,000 ML IV PRN ×3 (09:31→21:54)
[2018-07-29] MEDS: METOPROLOL TARTRATE 25 MG TABLET PO SCH ×2 (09:36→18:18)
[2018-07-29] MEDS: ASPIRIN 81 MG TABLET, ENT COATED PO SCH (09:37)
[2018-07-29] MEDS ORDERED: AMLODIPINE BESYLATE 5 MG TABLET PO SCH (10:00)
[2018-07-29] MEDS ORDERED: MOMETASONE FUROATE 50 MCG NASL SCH (10:00)
[2018-07-29] MEDS ORDERED: ENOXAPARIN SODIUM INJ 40 MG/0.4 ML DISP.SYRIN SUBCUT SCH (10:00)
--- NOTE | 2018-07-29 16:21 | PDOC PROGRESS REPORT ---
Subjective Progress Note for:: 07/29/18 Subjective:: Overnight noted to spike fevers to Tmax 103. Fevers would break and then spike again. Upon exam this AM, patient was more awake and clear during conversation. Denied focal abdominal pain or other areas of pain however would occasionally grimace with movement. Noted to have irritation of skin today concerning for yeast. Supportive daughter at bedside. Reason For Visit: ALTERED MENTAL STATUS Physical Exam Vital Signs: Temp Pulse Resp BP Pulse Ox 102.0 F H 96 20 142/67 H 95 07/29/18 11:51 07/29/18 15:51 07/29/18 15:51 07/29/18 11:51 07/29/18 15:51 Intake & Output 07/28/18 07/29/18 07/30/18 06:59 06:59 06:59 Intake Total 50 996 Balance 50 996 Weight 70.9 kg General appearance: PRESENT: cooperative, hard of hearing, thin Mouth exam: PRESENT: dry mucosa Respiratory exam: PRESENT: clear to auscultation bianca, unlabored. ABSENT: tachypnea Cardiovascular exam: PRESENT: irregular rhythm. ABSENT: tachycardia GI/Abdominal exam: PRESENT: normal bowel sounds, soft. ABSENT: tenderness Gentrourinary exam: PRESENT: other Extremities exam: ABSENT: +1 edema Neurological exam: PRESENT: alert, awake, other - PLeasant, conversant during AM exam Psychiatric exam: PRESENT: appropriate affect, normal mood Skin exam: PRESENT: dry, intact, other - Backside noted to be erythematous when cleaned today Results Laboratory Results: 07/29/18 04:34 07/29/18 04:34 07/29/18 07/29/18 07/29/18 04:34 04:34 04:34 WBC 6.1 RBC 4.62 Hgb 14.2 Hct 40.7 MCV 88 MCH 30.7 MCHC 34.9 RDW 14.2 H Plt Count 140 L Seg Neutrophils % 58.9 Lymphocytes % 24.4 Monocytes % 15.8 H Eosinophils % 0.1 Basophils % 0.8 Absolute Neutrophils 3.6 Absolute Lymphocytes 1.5 Absolute Monocytes 1.0 Absolute Eosinophils 0.0 Absolute Basophils 0.1 Sodium 135.3 L Potassium 3.7 Chloride 97 L Carbon Dioxide 27 Anion Gap 11 BUN 15 Creatinine 0.93 Est GFR ( Amer) > 60 Est GFR (Non-Af Amer) 57 L Glucose 106 Calcium 8.8 TSH 2.16 07/28/18 07/28/18 13:50 13:50 Creatine Kinase 83 CK-MB (CK-2) 0.40 Troponin I < 0.012 Impressions: Chest X-Ray 07/28/18 14:21 IMPRESSION: NO ACUTE DISEASE. Head CT 07/28/18 15:49 IMPRESSION: No acute intracranial findings. Acute appearing Left maxillary sinusitis. EVIDENCE OF ACUTE STROKE: NO. Abdomen/Pelvis CT 07/28/18 18:26 IMPRESSION: Negative for acute intra-abdominal/pelvic process. Sigmoid diverticulosis. No CT evidence for diverticulitis. Fatty infiltrative change to the liver. Severe atheromatous change. Cardiomegaly. TECHNICAL DOCUMENTATION: Quality ID # 436: Final reports with documentation of one or more dose reduction techniques (e.g., Automated exposure control, adjustment of the mA and/or kV according to patient size, use of iterative reconstruction technique) copyright 2011 [employer]- All Rights Reserved Assessment & Plan - Diagnosis (1) Altered mental status, unspecified Qualifiers: Altered mental status type: disorientation Qualified Code(s): R41.0 - Disorientation, unspecified Is this a current diagnosis for this admission?: Yes Plan: Acute presentation. Given sick contact (daughter) and similar symptology, this i s likely a viral syndrome. Patient did receive flu shot this winter - Febrile overnight and during day today; remains hemodynamically stable - Infectious works up: CTH, CXR, CT A/P and UA are all negative - Blood cultures no growth at 24 hours Management - Recived Rocephin empirically * 1 dose on 07/28 however has not been continued at this time - Holding sedating including Lyrica - TSH wnl; history of hypothyroidism - Likely viral etiology and continue supportive care for now - per daughter, her sx lasted 3 days and would expect similar course (2) Diabetes mellitus Is this a current diagnosis for this admission?: Yes Plan: Holding home metformin - Ordered blood checks qAC/HS - Ordered low dose ISS (3) Atrial fibrillation Is this a current diagnosis for this admission?: Yes Plan: -Continue home afib/cardiac medications as well as Warfarin 5mg daily - INR subtherapeutic this AM; will re-check in AM (4) Chronic obstructive lung disease Is this a current diagnosis for this admission?: Yes (5) Fever Is this a current diagnosis for this admission?: Yes Plan: LIkely due to viral process - Management per above - Has tylenol ordered PRN - Time Time Spent with patient: 15-24 minutes Anticipated discharge: Home with Homehealth Within: within 48 hours, within 72 hours
[2018-07-29] MEDS: DONEPEZIL HCL 5 MG TABLET PO SCH (21:55)
[2018-07-29] MEDS: ROPINIROLE HCL 0.25 MG TABLET PO SCH (21:55)
[2018-07-29] MEDS: SERTRALINE HCL 50 MG TABLET PO SCH (21:55)
[2018-07-29] MEDS: WARFARIN SODIUM 5 MG TABLET PO SCH (21:55)
[2018-07-29 21:57] LABS: A TYPE INFLUENZA AG POSITIVE (NEGATIVE); B INFLUENZA AG NEGATIVE (NEGATIVE)
[2018-07-30] MEDS: LANSOPRAZOLE 15 MG TAB.RAP.DR PO SCH (05:07)
[2018-07-30] MEDS: LEVOTHYROXINE SODIUM 0.05 MG TABLET PO SCH (05:07)
[2018-07-30] MEDS: ACETAMINOPHEN 325 MG TABLET PO PRN ×3 (06:16→18:18)
--- NOTE | 2018-07-30 08:19 | PDOC PROGRESS REPORT ---
Subjective Progress Note for:: 07/30/18 Subjective:: The patient appears to be slightly more awake and alert. She is still hard of hearing. She is complaining of cough. Her cultures show positive for influenza A. The patient did receive an influenza vaccination in March or April 2018 Reason For Visit: ALTERED MENTAL STATUS Physical Exam Vital Signs: Temp Pulse Resp BP Pulse Ox 98.3 F 96 18 94/43 L 93 07/30/18 07:50 07/30/18 07:50 07/30/18 07:50 07/30/18 07:50 07/30/18 07:50 Intake & Output 07/29/18 07/30/18 07/31/18 06:59 06:59 06:59 Intake Total 50 2659 Balance 50 2659 Weight 70.9 kg 64.2 kg General appearance: PRESENT: mild distress Head exam: PRESENT: atraumatic Eye exam: PRESENT: conjunctival injection Mouth exam: PRESENT: dry mucosa Neck exam: PRESENT: carotid bruit. ABSENT: JVD Respiratory exam: PRESENT: crackles, rhonchi. ABSENT: wheezes Cardiovascular exam: PRESENT: irregular rhythm, +S1, +S2 GI/Abdominal exam: PRESENT: normal bowel sounds, soft Extremities exam: PRESENT: tenderness Musculoskeletal exam: PRESENT: tenderness Neurological exam: PRESENT: awake Results Laboratory Results: 07/29/18 04:34 07/29/18 04:34 07/28/18 07/28/18 13:50 13:50 Creatine Kinase 83 CK-MB (CK-2) 0.40 Troponin I < 0.012 Impressions: Chest X-Ray 07/28/18 14:21 IMPRESSION: NO ACUTE DISEASE. Head CT 07/28/18 15:49 IMPRESSION: No acute intracranial findings. Acute appearing Left maxillary sinusitis. EVIDENCE OF ACUTE STROKE: NO. Abdomen/Pelvis CT 07/28/18 18:26 IMPRESSION: Negative for acute intra-abdominal/pelvic process. Sigmoid diverticulosis. No CT evidence for diverticulitis. Fatty infiltrative change to the liver. Severe atheromatous change. Cardiomegaly. TECHNICAL DOCUMENTATION: Quality ID # 436: Final reports with documentation of one or more dose reduction techniques (e.g., Automated exposure control, adjustment of the mA and/or kV according to patient size, use of iterative reconstruction technique) copyright 2011 [employer]- All Rights Reserved Assessment & Plan - Diagnosis (1) Influenza A Is this a current diagnosis for this admission?: Yes Plan: Even though the patient has received influenza vaccination we will add Tamiflu (2) Atrial fibrillation Qualifiers: Atrial fibrillation type: chronic Qualified Code(s): I48.2 - Chronic atrial fibrillation Is this a current diagnosis for this admission?: Yes Plan: Continue current medications (3) COPD (chronic obstructive pulmonary disease) Qualifiers: COPD type: emphysema Is this a current diagnosis for this admission?: Yes Plan: Continue current treatment (4) DNR (do not resuscitate) Is this a current diagnosis for this admission?: Yes Plan: Continue DNR status (5) Pneumonia and influenza Is this a current diagnosis for this admission?: Yes Plan: Possible superimposed pneumonia we will add Rocephin
[2018-07-30] MEDS: NORMAL SALINE 1000 ML 1,000 ML IV PRN ×2 (09:06→21:30)
[2018-07-30] MEDS: CEFTRIAXONE 1 GM/D5W RTU 1 GM/50 ML RTUPB IV SCH (09:06)
[2018-07-30] MEDS: METOPROLOL TARTRATE 25 MG TABLET PO SCH ×2 (09:06→21:30)
[2018-07-30] MEDS: ASPIRIN 81 MG TABLET, ENT COATED PO SCH (09:06)
[2018-07-30] MEDS ORDERED: METOPROLOL TARTRATE 25 MG TABLET PO SCH (10:00)
[2018-07-30] MEDS ORDERED: OSELTAMIVIR PHOSPHATE 75 MG CAPSULE PO SCH (10:00)
[2018-07-30] MEDS: ROPINIROLE HCL 0.25 MG TABLET PO SCH (21:30)
[2018-07-30] MEDS: DONEPEZIL HCL 5 MG TABLET PO SCH (21:30)
[2018-07-30] MEDS: SERTRALINE HCL 50 MG TABLET PO SCH (21:30)
[2018-07-30] MEDS: WARFARIN SODIUM 5 MG TABLET PO SCH (21:31)
[2018-07-30] MEDS: OSELTAMIVIR PHOSPHATE 75 MG CAPSULE PO SCH (21:31)
[2018-07-31] MEDS: LEVOTHYROXINE SODIUM 0.05 MG TABLET PO SCH (05:04)
[2018-07-31] MEDS: ACETAMINOPHEN 325 MG TABLET PO PRN (05:04)
[2018-07-31] MEDS: LANSOPRAZOLE 15 MG TAB.RAP.DR PO SCH (05:04)
[2018-07-31 05:23] LABS: INTERNATIONAL RATION (INR) 1.66; PROTHROMBIN TIME 20.5 SEC (11.4-15.4)
[2018-07-31 05:26] LABS: ABSOLUTE EOSINOPHILS # (AUTO) 0.1 10^3/uL (0.0-0.6); ABSOLUTE LYMPHOCYTES (AUTO) 1.7 10^3/uL (0.5-4.7); ABSOLUTE MONOCYTES (AUTO) 0.6 10^3/uL (0.1-1.4); ABSOLUTE NEUT (AUTO) 1.5 10^3/uL (1.7-8.2); BASOPHILS % (AUTO) 0.5 % (0-2); EOSINOPHILS % (AUTO) 3.7 % (0-6); HEMATOCRIT 41.3 % (36.0-47.0); HEMOGLOBIN 14.3 g/dL (12.0-15.5); LYMPHOCYTES % (AUTO) 41.7 % (13-45); MEAN CORPUSCULAR HEMOGLOBIN 30.4 pg (27.0-33.4); MEAN CORPUSCULAR HGB CONC 34.6 g/dL (32.0-36.0); MEAN CORPUSCULAR VOLUME 88 fl (80-97); MONOCYTES % (AUTO) 15.7 % (3-13); PLATELET COUNT 101 10^3/uL (150-450); RED BLOOD COUNT 4.69 10^6/uL (3.72-5.28); RED CELL DISTRIBUTION WIDTH 14.3 % (11.5-14.0); SEGMENTED NEUTROPHILS % (AUTO) 38.4 % (42-78); TOTAL CELLS COUNTED % (AUTO) 100 %
[2018-07-31 05:44] LABS: BLOOD UREA NITROGEN 11 mg/dL (7-20); CALCIUM 8.1 mg/dL (8.4-10.2); GLUCOSE 93 mg/dL (75-110); POTASSIUM 3.5 mmol/L (3.6-5.0)
[2018-07-31 05:45] LABS: ALANINE AMINOTRANSFERASE 38 U/L (9-52); ALBUMIN 3.4 g/dL (3.5-5.0); ALKALINE PHOSPHATASE 83 U/L (38-126); ANION GAP 11 (5-19); ASPARTATE AMINO TRANSFERASE 56 U/L (14-36); BILIRUBIN,DIRECT 0.2 mg/dL (0.0-0.4); BILIRUBIN,TOTAL 0.4 mg/dL (0.2-1.3); CARBON DIOXIDE 26 mmol/L (22-30); CHLORIDE 101 mmol/L (98-107); SODIUM 137.5 mmol/L (137-145); TOTAL PROTEIN 6.2 g/dL (6.3-8.2)
[2018-07-31] MEDS ORDERED: FLUCONAZOLE 100 MG TABLET PO ONE (08:19)
--- NOTE | 2018-07-31 08:24 | PDOC PROGRESS REPORT ---
Subjective Progress Note for:: 07/31/18 Subjective:: The patient appears to be much better. She still has productive cough. Discussed the need to get out of bed and into a recliner. Will stop the IV fluids and Hep-Lock Reason For Visit: ALTERED MENTAL STATUS Physical Exam Vital Signs: Temp Pulse Resp BP Pulse Ox 98.1 F 79 17 96/53 L 93 07/31/18 07:58 07/31/18 07:58 07/31/18 07:58 07/31/18 07:58 07/31/18 07:58 Intake & Output 07/30/18 07/31/18 08/01/18 06:59 06:59 06:59 Intake Total 2659 2309 Balance 2659 2309 Weight 64.2 kg 64.2 kg General appearance: PRESENT: mild distress Head exam: PRESENT: atraumatic Eye exam: PRESENT: conjunctival injection Neck exam: PRESENT: carotid bruit. ABSENT: JVD Respiratory exam: PRESENT: rhonchi. ABSENT: wheezes Cardiovascular exam: PRESENT: irregular rhythm, +S1, +S2 GI/Abdominal exam: PRESENT: normal bowel sounds, soft Extremities exam: PRESENT: tenderness Musculoskeletal exam: PRESENT: tenderness Neurological exam: PRESENT: awake Results Laboratory Results: 07/31/18 04:46 07/31/18 04:46 07/31/18 07/31/18 04:46 04:46 WBC 4.0 RBC 4.69 Hgb 14.3 Hct 41.3 MCV 88 MCH 30.4 MCHC 34.6 RDW 14.3 H Plt Count 101 L Seg Neutrophils % 38.4 L Lymphocytes % 41.7 Monocytes % 15.7 H Eosinophils % 3.7 Basophils % 0.5 Absolute Neutrophils 1.5 L Absolute Lymphocytes 1.7 Absolute Monocytes 0.6 Absolute Eosinophils 0.1 Absolute Basophils 0.0 Sodium 137.5 Potassium 3.5 L Chloride 101 Carbon Dioxide 26 Anion Gap 11 BUN 11 Creatinine 0.72 Est GFR ( Amer) > 60 Est GFR (Non-Af Amer) > 60 Glucose 93 Calcium 8.1 L Magnesium 1.9 Total Bilirubin 0.4 AST 56 H ALT 38 Alkaline Phosphatase 83 Total Protein 6.2 L Albumin 3.4 L 07/28/18 07/28/18 13:50 13:50 Creatine Kinase 83 CK-MB (CK-2) 0.40 Troponin I < 0.012 Impressions: Chest X-Ray 07/28/18 14:21 IMPRESSION: NO ACUTE DISEASE. Head CT 07/28/18 15:49 IMPRESSION: No acute intracranial findings. Acute appearing Left maxillary sinusitis. EVIDENCE OF ACUTE STROKE: NO. Abdomen/Pelvis CT 07/28/18 18:26 IMPRESSION: Negative for acute intra-abdominal/pelvic process. Sigmoid diverticulosis. No CT evidence for diverticulitis. Fatty infiltrative change to the liver. Severe atheromatous change. Cardiomegaly. TECHNICAL DOCUMENTATION: Quality ID # 436: Final reports with documentation of one or more dose reduction techniques (e.g., Automated exposure control, adjustment of the mA and/or kV according to patient size, use of iterative reconstruction technique) copyright 2011 [employer]- All Rights Reserved Assessment & Plan - Diagnosis (1) Influenza A Is this a current diagnosis for this admission?: Yes Plan: Even though the patient has received influenza vaccination we will add Tamiflu (2) Atrial fibrillation Qualifiers: Atrial fibrillation type: chronic Qualified Code(s): I48.2 - Chronic atrial fibrillation Is this a current diagnosis for this admission?: Yes Plan: We will adjust the blood pressure medications and beta-blockers (3) COPD (chronic obstructive pulmonary disease) Qualifiers: COPD type: emphysema Is this a current diagnosis for this admission?: Yes Plan: Continue current treatment (4) DNR (do not resuscitate) Is this a current diagnosis for this admission?: Yes Plan: Continue DNR status (5) Pneumonia and influenza Is this a current diagnosis for this admission?: Yes Plan: Continue current treatment (6) Dementia Is this a current diagnosis for this admission?: Yes Plan: Continue current medications (7) Diabetes mellitus Is this a current diagnosis for this admission?: Yes Plan: Continue current treatment (8) CAD (coronary artery disease) Is this a current diagnosis for this admission?: Yes Plan: Continue current medications
[2018-07-31] MEDS ORDERED: POTASSIUM CHLORIDE 10 MEQ CAPSULE.ER PO ONE (09:00)
[2018-07-31] MEDS: METOPROLOL TARTRATE 25 MG TABLET PO SCH ×2 (10:28→23:16)
[2018-07-31] MEDS: CEFTRIAXONE 1 GM/D5W RTU 1 GM/50 ML RTUPB IV SCH (10:28)
[2018-07-31] MEDS: OSELTAMIVIR PHOSPHATE 75 MG CAPSULE PO SCH ×2 (10:28→21:48)
[2018-07-31] MEDS: ASPIRIN 81 MG TABLET, ENT COATED PO SCH (10:28)
--- NOTE | 2018-07-31 10:51 | RADIOLOGY REPORT (SQ) ---
EXAM DESCRIPTION: CHEST 2 VIEWS COMPLETED DATE/TIME: 07/31/2018 10:22 am REASON FOR STUDY: Bronchitis versus pneumonia COMPARISON: None. NUMBER OF VIEWS: One view. TECHNIQUE: Single frontal radiographic view of the chest acquired. LIMITATIONS: None. FINDINGS: LUNGS AND PLEURA: Peribronchial cuffing. No infiltrate. There is a background of COPD. MEDIASTINUM AND HILAR STRUCTURES: No masses. Contour normal. HEART AND VASCULAR STRUCTURES: Heart normal in size. Normal vasculature. BONES: No acute findings. HARDWARE: None in the chest. OTHER: No other significant finding. IMPRESSION: Bronchitis. No infiltrate. TECHNICAL DOCUMENTATION: JOB ID: [id number] [employer]- All Rights Reserved Reading location - IP/workstation name: [email or web address]
[2018-07-31] MEDS: IPRATROPIUM/ALBUTEROL 0.5-2.5 MG/3 ML AMPUL NEB SCH ×3 (11:46→20:48)
[2018-07-31] MEDS ORDERED: METOPROLOL TARTRATE PF/INJ 5 MG/5 ML SDV IV ONE ×2 (21:44→22:00)
[2018-07-31] MEDS: DONEPEZIL HCL 5 MG TABLET PO SCH (21:48)
[2018-07-31] MEDS: WARFARIN SODIUM 5 MG TABLET PO SCH (21:48)
[2018-07-31] MEDS: ROPINIROLE HCL 0.25 MG TABLET PO SCH (21:48)
[2018-07-31] MEDS: SERTRALINE HCL 50 MG TABLET PO SCH (21:48)
[2018-07-31] MEDS ORDERED: NORMAL SALINE 1000 ML 1,000 ML IV ONE (22:00)
[2018-08-01] MEDS: LEVALBUTEROL HCL NEB 1.25 MG/3 ML AMPUL NEB SCH ×4 (02:24→21:17)
[2018-08-01] MEDS: IPRATROPIUM BROMIDE 0.02% NEB 0.5 MG/2.5 ML AMPUL NEB SCH ×4 (02:24→21:17)
[2018-08-01] MEDS: LEVOTHYROXINE SODIUM 0.05 MG TABLET PO SCH (05:34)
[2018-08-01] MEDS: LANSOPRAZOLE 15 MG TAB.RAP.DR PO SCH (05:35)
[2018-08-01 06:50] LABS: INTERNATIONAL RATION (INR) 1.82
[2018-08-01] MEDS ORDERED: METOPROLOL TARTRATE PF/INJ 5 MG/5 ML SDV IV ONE (07:30)
--- NOTE | 2018-08-01 08:40 | PDOC PROGRESS REPORT ---
Subjective Progress Note for:: 08/01/18 Subjective:: The patient states to feel better. Unfortunately she has developed a rapid A. fib. She has been given Lopressor IV which has controlled her but when she does any kind of exertion she goes into a rapid A. fib. Reason For Visit: ALTERED MENTAL STATUS Physical Exam Vital Signs: Temp Pulse Resp BP Pulse Ox 97.5 F 96 16 125/75 96 08/01/18 07:42 08/01/18 07:42 08/01/18 07:42 08/01/18 07:42 08/01/18 07:42 Intake & Output 07/31/18 08/01/18 08/02/18 06:59 06:59 06:59 Intake Total 2309 3590 Balance 2309 3590 Weight 64.2 kg 65.5 kg General appearance: PRESENT: mild distress Head exam: PRESENT: atraumatic Eye exam: PRESENT: conjunctiva pink Neck exam: PRESENT: carotid bruit. ABSENT: JVD Respiratory exam: PRESENT: crackles Cardiovascular exam: PRESENT: irregular rhythm, +S1, +S2, tachycardia GI/Abdominal exam: PRESENT: normal bowel sounds, soft Extremities exam: PRESENT: tenderness Musculoskeletal exam: PRESENT: tenderness Neurological exam: PRESENT: alert, awake Results Laboratory Results: 07/31/18 04:46 07/31/18 04:46 07/28/18 07/28/18 13:50 13:50 Creatine Kinase 83 CK-MB (CK-2) 0.40 Troponin I < 0.012 Impressions: Head CT 07/28/18 15:49 IMPRESSION: No acute intracranial findings. Acute appearing Left maxillary sinusitis. EVIDENCE OF ACUTE STROKE: NO. Abdomen/Pelvis CT 07/28/18 18:26 IMPRESSION: Negative for acute intra-abdominal/pelvic process. Sigmoid diverticulosis. No CT evidence for diverticulitis. Fatty infiltrative change to the liver. Severe atheromatous change. Cardiomegaly. TECHNICAL DOCUMENTATION: Quality ID # 436: Final reports with documentation of one or more dose reduction techniques (e.g., Automated exposure control, adjustment of the mA and/or kV according to patient size, use of iterative reconstruction technique) copyright 2011 [employer]- All Rights Reserved Chest X-Ray 07/31/18 00:00 IMPRESSION: Bronchitis. No infiltrate. Assessment & Plan - Diagnosis (1) Influenza A Is this a current diagnosis for this admission?: Yes Plan: Continue Tamiflu (2) Atrial fibrillation Qualifiers: Atrial fibrillation type: chronic Qualified Code(s): I48.2 - Chronic atrial fibrillation Is this a current diagnosis for this admission?: Yes Plan: We will consider changing from metoprolol to Cardizem. Discussed with cardiology (3) COPD (chronic obstructive pulmonary disease) Qualifiers: COPD type: emphysema Is this a current diagnosis for this admission?: Yes Plan: Continue current treatment (4) DNR (do not resuscitate) Is this a current diagnosis for this admission?: Yes Plan: Continue DNR status (5) Pneumonia and influenza Is this a current diagnosis for this admission?: Yes Plan: Continue with Tamiflu and antibiotics (6) Dementia Is this a current diagnosis for this admission?: Yes Plan: Continue current medications (7) Diabetes mellitus Is this a current diagnosis for this admission?: Yes Plan: Continue current treatment (8) CAD (coronary artery disease) Is this a current diagnosis for this admission?: Yes Plan: Continue current medications
[2018-08-01] MEDS: CEFTRIAXONE 1 GM/D5W RTU 1 GM/50 ML RTUPB IV SCH (10:18)
[2018-08-01] MEDS: ASPIRIN 81 MG TABLET, ENT COATED PO SCH (10:18)
[2018-08-01] MEDS: METOPROLOL TARTRATE 25 MG TABLET PO SCH ×2 (10:18→22:56)
[2018-08-01] MEDS: OSELTAMIVIR PHOSPHATE 75 MG CAPSULE PO SCH ×2 (10:18→22:54)
[2018-08-01] MEDS: DILTIAZEM HCL 60 MG TABLET PO SCH ×2 (10:39→22:56)
[2018-08-01] MEDS ORDERED: WARFARIN SODIUM 3 MG TABLET PO ONE (11:30)
[2018-08-01] MEDS: WARFARIN SODIUM 5 MG TABLET PO SCH (22:54)
[2018-08-01] MEDS: ROPINIROLE HCL 0.25 MG TABLET PO SCH (22:55)
[2018-08-01] MEDS: SERTRALINE HCL 50 MG TABLET PO SCH (22:56)
[2018-08-01] MEDS: DONEPEZIL HCL 5 MG TABLET PO SCH (22:57)
[2018-08-02] MEDS: ACETAMINOPHEN 325 MG TABLET PO PRN (02:16)
[2018-08-02] MEDS: IPRATROPIUM BROMIDE 0.02% NEB 0.5 MG/2.5 ML AMPUL NEB SCH ×4 (02:18→21:15)
[2018-08-02] MEDS: LEVALBUTEROL HCL NEB 1.25 MG/3 ML AMPUL NEB SCH ×4 (02:19→21:15)
[2018-08-02] MEDS: LANSOPRAZOLE 15 MG TAB.RAP.DR PO SCH (05:07)
[2018-08-02] MEDS: LEVOTHYROXINE SODIUM 0.05 MG TABLET PO SCH (05:07)
[2018-08-02] MEDS: DILTIAZEM HCL 60 MG TABLET PO SCH ×3 (05:07→22:13)
[2018-08-02 05:42] LABS: PROTHROMBIN TIME 25.5 SEC (11.4-15.4)
[2018-08-02 05:53] LABS: ABSOLUTE EOSINOPHILS # (AUTO) 0.1 10^3/uL (0.0-0.6); ABSOLUTE LYMPHOCYTES (AUTO) 1.8 10^3/uL (0.5-4.7); ABSOLUTE MONOCYTES (AUTO) 0.7 10^3/uL (0.1-1.4); ABSOLUTE NEUT (AUTO) 2.5 10^3/uL (1.7-8.2); BASOPHILS % (AUTO) 0.2 % (0-2); EOSINOPHILS % (AUTO) 2.9 % (0-6); HEMATOCRIT 38.2 % (36.0-47.0); HEMOGLOBIN 13.2 g/dL (12.0-15.5); LYMPHOCYTES % (AUTO) 35.4 % (13-45); MEAN CORPUSCULAR HEMOGLOBIN 30.4 pg (27.0-33.4); MEAN CORPUSCULAR HGB CONC 34.7 g/dL (32.0-36.0); MEAN CORPUSCULAR VOLUME 88 fl (80-97); MONOCYTES % (AUTO) 13.1 % (3-13); PLATELET COUNT 101 10^3/uL (150-450); RED BLOOD COUNT 4.36 10^6/uL (3.72-5.28); RED CELL DISTRIBUTION WIDTH 14.3 % (11.5-14.0); SEGMENTED NEUTROPHILS % (AUTO) 48.4 % (42-78); TOTAL CELLS COUNTED % (AUTO) 100 %; WHITE BLOOD COUNT 5.2 10^3/uL (4.0-10.5)
[2018-08-02 05:58] LABS: ANION GAP 8 (5-19); BLOOD UREA NITROGEN 9 mg/dL (7-20); CALCIUM 8.6 mg/dL (8.4-10.2); CARBON DIOXIDE 28 mmol/L (22-30); CHLORIDE 105 mmol/L (98-107); GLUCOSE 118 mg/dL (75-110); POTASSIUM 3.5 mmol/L (3.6-5.0); SODIUM 140.8 mmol/L (137-145)
[2018-08-02] MEDS ORDERED: ONDANSETRON 4 MG TAB.RAPDIS PO PRN (07:30)
--- NOTE | 2018-08-02 08:45 | PDOC PROGRESS REPORT ---
Subjective Progress Note for:: 08/02/18 Subjective:: The patient appears to be slightly better. She is presently receiving a nebulization treatments. Her cough has improved. She denies any palpitations during the night Reason For Visit: ALTERED MENTAL STATUS Physical Exam Vital Signs: Temp Pulse Resp BP Pulse Ox 98.5 F 81 18 103/52 L 94 08/02/18 03:06 08/02/18 07:00 08/02/18 03:06 08/02/18 03:06 08/02/18 03:06 Intake & Output 08/01/18 08/02/18 08/03/18 06:59 06:59 06:59 Intake Total 3590 890 Balance 3590 890 Weight 65.5 kg 80.8 kg General appearance: PRESENT: mild distress Head exam: PRESENT: atraumatic Eye exam: PRESENT: conjunctiva pink Neck exam: PRESENT: carotid bruit. ABSENT: JVD Respiratory exam: PRESENT: crackles, wheezes Cardiovascular exam: PRESENT: irregular rhythm, +S1, +S2 GI/Abdominal exam: PRESENT: normal bowel sounds, soft Extremities exam: PRESENT: tenderness Musculoskeletal exam: PRESENT: tenderness Neurological exam: PRESENT: awake Results Laboratory Results: 08/02/18 05:16 08/02/18 05:16 08/02/18 08/02/18 05:16 05:16 WBC 5.2 RBC 4.36 Hgb 13.2 Hct 38.2 MCV 88 MCH 30.4 MCHC 34.7 RDW 14.3 H Plt Count 101 L Seg Neutrophils % 48.4 Lymphocytes % 35.4 Monocytes % 13.1 H Eosinophils % 2.9 Basophils % 0.2 Absolute Neutrophils 2.5 Absolute Lymphocytes 1.8 Absolute Monocytes 0.7 Absolute Eosinophils 0.1 Absolute Basophils 0.0 Sodium 140.8 Potassium 3.5 L Chloride 105 Carbon Dioxide 28 Anion Gap 8 BUN 9 Creatinine 0.52 Est GFR ( Amer) > 60 Est GFR (Non-Af Amer) > 60 Glucose 118 H Calcium 8.6 Magnesium 1.9 07/28/18 07/28/18 13:50 13:50 Creatine Kinase 83 CK-MB (CK-2) 0.40 Troponin I < 0.012 Impressions: Head CT 07/28/18 15:49 IMPRESSION: No acute intracranial findings. Acute appearing Left maxillary sinusitis. EVIDENCE OF ACUTE STROKE: NO. Abdomen/Pelvis CT 07/28/18 18:26 IMPRESSION: Negative for acute intra-abdominal/pelvic process. Sigmoid diverticulosis. No CT evidence for diverticulitis. Fatty infiltrative change to the liver. Severe atheromatous change. Cardiomegaly. TECHNICAL DOCUMENTATION: Quality ID # 436: Final reports with documentation of one or more dose reduction techniques (e.g., Automated exposure control, adjustment of the mA and/or kV according to patient size, use of iterative reconstruction technique) copyright 2011 [employer]- All Rights Reserved Chest X-Ray 07/31/18 00:00 IMPRESSION: Bronchitis. No infiltrate. Assessment & Plan - Diagnosis (1) Influenza A Is this a current diagnosis for this admission?: Yes Plan: Continue Tamiflu (2) Atrial fibrillation Qualifiers: Atrial fibrillation type: chronic Qualified Code(s): I48.2 - Chronic atrial fibrillation Is this a current diagnosis for this admission?: Yes Plan: Improved control with the addition of diltiazem (3) COPD (chronic obstructive pulmonary disease) Qualifiers: COPD type: emphysema Is this a current diagnosis for this admission?: Yes Plan: We will obtain an ABG (4) DNR (do not resuscitate) Is this a current diagnosis for this admission?: Yes Plan: Continue DNR status (5) Pneumonia and influenza Is this a current diagnosis for this admission?: Yes Plan: Continue with Tamiflu and antibiotics (6) Dementia Is this a current diagnosis for this admission?: Yes Plan: Continue current medications (7) Diabetes mellitus Is this a current diagnosis for this admission?: Yes Plan: Continue current treatment (8) CAD (coronary artery disease) Is this a current diagnosis for this admission?: Yes Plan: Continue current medications
[2018-08-02] MEDS: OSELTAMIVIR PHOSPHATE 75 MG CAPSULE PO SCH ×2 (10:05→22:12)
[2018-08-02] MEDS: ASPIRIN 81 MG TABLET, ENT COATED PO SCH (10:05)
[2018-08-02] MEDS: METOPROLOL TARTRATE 25 MG TABLET PO SCH ×2 (10:05→22:13)
[2018-08-02] MEDS: PREDNISONE 20 MG TABLET PO SCH ×2 (10:05→17:20)
[2018-08-02] MEDS: FUROSEMIDE 20 MG TABLET PO SCH (10:07)
[2018-08-02] MEDS: CEFTRIAXONE 1 GM/D5W RTU 1 GM/50 ML RTUPB IV SCH (10:09)
[2018-08-02 11:52] LABS: ARTERIAL BLOOD BASE EXCESS 3.9 mmol/L; ARTERIAL BLOOD H2CO3 1.13 mmol/L (1.05-1.35); ARTERIAL BLOOD HCO3 27.4 mmol/L (20-24); ARTERIAL BLOOD O2 SATURATION 93.4 % (94-98); ARTERIAL BLOOD PCO2 37.6 mmHg (35-45); ARTERIAL BLOOD PH 7.48 (7.35-7.45); ARTERIAL BLOOD PO2 62.3 mmHg (80-100); ARTERIAL BLOOD TOTAL CO2 28.6 mmol/L (21-25)
[2018-08-02 11:59] LABS: ARTERIAL BLOOD FIO2 4L
[2018-08-02] MEDS: DONEPEZIL HCL 5 MG TABLET PO SCH (22:12)
[2018-08-02] MEDS: SERTRALINE HCL 50 MG TABLET PO SCH (22:12)
[2018-08-02] MEDS: ROPINIROLE HCL 0.25 MG TABLET PO SCH (22:12)
[2018-08-02] MEDS: WARFARIN SODIUM 5 MG TABLET PO SCH (22:13)
--- NOTE | 2018-08-02 23:03 | Progress Note ---
Provider Note Provider Note: CARDIOLOGY PROGRESS note by Dr. Catrachita Ramos on 08/02/2018. SUBJECTIVE: The patient states her cough is better. She is less short of breath. She still has orthopnea but no PND. She denies any chest pain or discomfort. There is no leg edema. There is no TIA CVA symptoms. There is no bleeding on anticoagulation. There is no ventricular arrhythmia seen on the monitor. PHYSICAL EXAMINATION: The patient is well-built and well-nourished. At present in no acute distress. Selected Entries 08/02/18 19:32 Temperature 97.6 F Temperature Oral Source Pulse Rate 72 Respiratory 20 Rate Blood Pressure 110/88 H Blood Pressure 95 Mean BP Location Left Arm BP Position Supine O2 Sat by Pulse 92 Oximetry Oxygen Flow 4.00 Rate Oxygen Delivery Nasal Cannula Method HEAD: Atraumatic, normocephalic. EYES: Pupils equal round and reactive to light, extraocular movements intact, sclera anicteric, conjunctiva are normal. ENT: TMs normal, nares patent, oropharynx clear without exudates. Moist mucous membranes. NECK: Normal range of motion, supple without lymphadenopathy or JVD. Carotids are equal there is no bruits. There is no thyromegaly. There is no accessory muscles of respiration in use. Trachea central LUNGS: There is diminished air entry and prolonged expiration. There is occasional scattered rhonchi. There is no wheezing or rales. On palpation there is no chest wall tenderness. HEART: S1-S2 is heard. S1 is of variable intensity. There is no S3 gallop. There is no S4 gallop. There is systolic murmur left sternal border and apex without radiation. There is no rub.. ABDOMEN: Soft, nontender, normoactive bowel sounds. There is no hepatosplenic megaly no guarding, no rebound. No masses appreciated. EXTREMITIES: Normal range of motion, no pitting or edema. No clubbing or cyanosis. Femorals are well felt. There is no femoral bruits. Leg pulses are well felt. There is no DVT or cellulitis. There is no calf tenderness NEUROLOGICAL: Cranial nerves II through XII grossly intact. Normal speech, normal gait. The patient is awake alert oriented x3 with no focal deficits. PSYCH: Normal mood, normal affect. The patient judgment and insight are intact SKIN: Warm, Dry, normal turgor, no rashes or lesions noted. There is no petechia or ecchymosis. 07/29/18 08/02/18 08/02/18 21:25 05:16 05:16 WBC 5.2 Hgb 13.2 Hct 38.2 MCV 88 MCH 30.4 MCHC 34.7 RDW 14.3 H Plt Count 101 L PT 25.5 H INR 2.20 Carbonic Acid HCO3/H2CO3 Ratio ABG pH ABG pCO2 ABG pO2 ABG HCO3 ABG Total CO2 ABG O2 Saturation ABG Base Excess FiO2 Sodium Potassium Chloride Carbon Dioxide Anion Gap BUN Creatinine Est GFR (Non-Af Amer) Glucose Calcium Magnesium Influenza A (Rapid) POSITIVE 08/02/18 08/02/18 05:16 11:30 WBC Hgb Hct MCV MCH MCHC RDW Plt Count PT INR Carbonic Acid 1.13 HCO3/H2CO3 Ratio 24:1 ABG pH 7.48 H ABG pCO2 37.6 ABG pO2 62.3 L ABG HCO3 27.4 H ABG Total CO2 28.6 H ABG O2 Saturation 93.4 L ABG Base Excess 3.9 FiO2 4L Sodium 140.8 Potassium 3.5 L Chloride 105 Carbon Dioxide 28 Anion Gap 8 BUN 9 Creatinine 0.52 Est GFR (Non-Af Amer) > 60 Glucose 118 H Calcium 8.6 Magnesium 1.9 Influenza A (Rapid) IMPRESSION/RECOMMENDATION: 1. Influenza A pneumonia. Continue current treatment. 2. COPD with acute exacerbation. Continue respiratory treatments and oxygen. 3. Chronic atrial fibrillation: Continue Coumadin, at present INR is therapeutic. Continue Cardizem at 60 mg p.o. every 8 hours, and increase as tolerated. Later would switch to a long-acting Cardizem preparation.. 4. Coronary artery disease: Stable no anginal symptoms. 5. Hypertension: Blood pressure well controlled. 6. Diabetes mellitus: Continue antidiabetic medication and monitor sugars. 7. Hypothyroidism: Continue thyroid replacement 8. GERD: Continue proton pump inhibitors. 9. Hyperlipidemia: Continue statin 10. Dementia: She is still able to interact appropriately. Medications reviewed. Discussed management plan with attending physician on the case. Medical decision making is of moderate complexity. 40 minutes spent on this patient more than 50% time spent in direct patient care. Note that the patient is DNR. Her daughter is her surrogate healthcare decision maker.
[2018-08-03] MEDS: LEVALBUTEROL HCL NEB 1.25 MG/3 ML AMPUL NEB SCH ×4 (02:15→19:44)
[2018-08-03] MEDS: IPRATROPIUM BROMIDE 0.02% NEB 0.5 MG/2.5 ML AMPUL NEB SCH ×4 (02:15→19:44)
[2018-08-03] MEDS: LEVOTHYROXINE SODIUM 0.1 MG TABLET PO SCH (05:17)
[2018-08-03] MEDS: DILTIAZEM HCL 60 MG TABLET PO SCH ×3 (05:17→22:22)
[2018-08-03] MEDS: LANSOPRAZOLE 15 MG TAB.RAP.DR PO SCH (05:18)
[2018-08-03 06:23] LABS: INTERNATIONAL RATION (INR) 3.41
--- NOTE | 2018-08-03 08:37 | PDOC PROGRESS REPORT ---
Subjective Progress Note for:: 08/03/18 Subjective:: The patient states to feel better. She appears to be much more comfortable. She is still having some cough. Reason For Visit: ALTERED MENTAL STATUS Physical Exam Vital Signs: Temp Pulse Resp BP Pulse Ox 98.0 F 98 18 131/78 H 94 08/02/18 23:20 08/03/18 02:23 08/03/18 02:23 08/02/18 23:20 08/03/18 02:23 Intake & Output 08/02/18 08/03/18 08/04/18 06:59 06:59 06:59 Intake Total 890 738 Balance 890 738 Weight 80.8 kg 81 kg General appearance: PRESENT: mild distress Head exam: PRESENT: atraumatic Eye exam: PRESENT: conjunctiva pink Neck exam: PRESENT: carotid bruit. ABSENT: JVD Respiratory exam: PRESENT: rhonchi. ABSENT: rales, wheezes Cardiovascular exam: PRESENT: irregular rhythm, +S1, +S2 GI/Abdominal exam: PRESENT: normal bowel sounds, soft Extremities exam: PRESENT: tenderness Musculoskeletal exam: PRESENT: tenderness Neurological exam: PRESENT: alert, awake Results Laboratory Results: 08/02/18 05:16 08/02/18 05:16 08/02/18 11:30 Carbonic Acid 1.13 HCO3/H2CO3 Ratio 24:1 ABG pH 7.48 H ABG pCO2 37.6 ABG pO2 62.3 L ABG HCO3 27.4 H ABG O2 Saturation 93.4 L ABG Base Excess 3.9 FiO2 4L 07/28/18 15:40 Blood Blood Culture - Final NO GROWTH IN 5 DAYS 07/28/18 15:20 Blood Blood Culture - Final NO GROWTH IN 5 DAYS 07/28/18 07/28/18 13:50 13:50 Creatine Kinase 83 CK-MB (CK-2) 0.40 Troponin I < 0.012 Impressions: Head CT 07/28/18 15:49 IMPRESSION: No acute intracranial findings. Acute appearing Left maxillary sinusitis. EVIDENCE OF ACUTE STROKE: NO. Abdomen/Pelvis CT 07/28/18 18:26 IMPRESSION: Negative for acute intra-abdominal/pelvic process. Sigmoid diverticulosis. No CT evidence for diverticulitis. Fatty infiltrative change to the liver. Severe atheromatous change. Cardiomegaly. TECHNICAL DOCUMENTATION: Quality ID # [id number]: Final reports with documentation of one or more dose reduction techniques (e.g., Automated exposure control, adjustment of the mA and/or kV according to patient size, use of iterative reconstruction technique) copyright 2011 [employer]- All Rights Reserved Chest X-Ray 07/31/18 00:00 IMPRESSION: Bronchitis. No infiltrate. Assessment & Plan - Diagnosis (1) Influenza A Is this a current diagnosis for this admission?: Yes Plan: Complete 5 days of Tamiflu (2) Atrial fibrillation Qualifiers: Atrial fibrillation type: chronic Qualified Code(s): I48.2 - Chronic atrial fibrillation Is this a current diagnosis for this admission?: Yes Plan: Rate control will continue with current medications (3) COPD (chronic obstructive pulmonary disease) Qualifiers: COPD type: emphysema Is this a current diagnosis for this admission?: Yes Plan: We will start reducing the prednisone (4) DNR (do not resuscitate) Is this a current diagnosis for this admission?: Yes Plan: Continue DNR status (5) Pneumonia and influenza Is this a current diagnosis for this admission?: Yes Plan: Improving we will stop the Rocephin and start Levaquin (6) Dementia Is this a current diagnosis for this admission?: Yes Plan: We will try to avoid the sun downs (7) Diabetes mellitus Is this a current diagnosis for this admission?: Yes Plan: Continue current treatment (8) CAD (coronary artery disease) Is this a current diagnosis for this admission?: Yes Plan: Continue current medications
[2018-08-03] MEDS: OSELTAMIVIR PHOSPHATE 75 MG CAPSULE PO SCH ×2 (10:25→22:24)
[2018-08-03] MEDS: LEVOFLOXACIN 500 MG TABLET PO SCH (10:25)
[2018-08-03] MEDS: ASPIRIN 81 MG TABLET, ENT COATED PO SCH (10:25)
[2018-08-03] MEDS: FUROSEMIDE 20 MG TABLET PO SCH (10:25)
[2018-08-03] MEDS: METOPROLOL TARTRATE 25 MG TABLET PO SCH ×2 (10:25→22:22)
[2018-08-03] MEDS: PREDNISONE 20 MG TABLET PO SCH ×2 (10:26→17:33)
--- NOTE | 2018-08-03 21:25 | Progress Note ---
Provider Note Provider Note: CARDIOLOGY PROGRESS NOTE by Dr. Catrachita Love on 08/03/2018. SUBJECTIVE: The patient's heart rate is much improved. Her shortness of breath is also improving. She is does have a cough but is not able to bring up any sputum. The patient does have orthopnea but no PND. There is no anginal symptoms. There is no ventricular arrhythmia seen on the monitor. The patient continues to be in atrial fibrillation with controlled ventricular response. There is no bleeding on Coumadin there is no TIA or CVA symptoms. SUBJECTIVE: The patient is well-built and well-nourished. She is in no acute distress. She is sitting up in a chair. Selected Entries 08/03/18 07:59 Temperature 97.3 F Temperature Oral Source Pulse Rate 69 Respiratory 22 H Rate Blood Pressure 117/69 Blood Pressure 85 Mean BP Location Left Arm BP Position Supine O2 Sat by Pulse 94 Oximetry Oxygen Flow 4.00 Rate Oxygen Delivery Nasal Cannula Method HEAD: Atraumatic, normocephalic. EYES: Pupils equal round and reactive to light, extraocular movements intact, sclera anicteric, conjunctiva are normal. ENT: TMs normal, nares patent, oropharynx clear without exudates. Moist mucous membranes. NECK: Normal range of motion, supple without lymphadenopathy or JVD. Carotids are equal there is no bruits. There is no thyromegaly. There is no accessory muscles of respiration in use. Trachea central LUNGS: There is diminished air entry and prolonged expiration. There is occasional scattered rhonchi. There is no wheezing or rales. On palpation there is no chest wall tenderness. HEART: S1-S2 is heard. S1 is of variable intensity. There is no S3 gallop. There is no S4 gallop. There is systolic murmur left sternal border and apex without radiation. There is no rub.. ABDOMEN: Soft, nontender, normoactive bowel sounds. There is no hepatosplenic megaly no guarding, no rebound. No masses appreciated. EXTREMITIES: Normal range of motion, no pitting or edema. No clubbing or cyanosis. Femorals are well felt. There is no femoral bruits. Leg pulses are well felt. There is no DVT or cellulitis. There is no calf tenderness NEUROLOGICAL: Cranial nerves II through XII grossly intact. Normal speech, normal gait. The patient is awake alert oriented x3 with no focal deficits. PSYCH: Normal mood, normal affect. The patient judgment and insight are intact SKIN: Warm, Dry, normal turgor, no rashes or lesions noted. There is no petechia or ecchymosis. 08/03/18 06:18 POC Glucose 139 H 08/04/18 04:42 PT 41.5 H INR 4.09 IMPRESSION/RECOMMENDATION: 1. Influenza A pneumonia. Continue current treatment. 2. COPD with acute exacerbation. Continue respiratory treatments and oxygen. 3. Chronic atrial fibrillation: Would hold Coumadin tonight, since at present INR is SUPRAtherapeutic. Continue Cardizem at 60 mg p.o. every 8 hours, and increase as tolerated. Later would switch to a long-acting Cardizem preparation.. 4. Coronary artery disease: Stable no anginal symptoms. 5. Hypertension: Blood pressure well controlled. 6. Diabetes mellitus: Continue antidiabetic medication and monitor sugars. 7. Hypothyroidism: Continue thyroid replacement 8. GERD: Continue proton pump inhibitors. 9. Hyperlipidemia: Continue statin 10. Dementia: She is still able to interact appropriately. Medications reviewed. Discussed management plan with attending physician on the case. Medical decision making is of moderate complexity. 40 minutes spent on this patient more than 50% time spent in direct patient care. Note that the patient is DNR. Her daughter is her surrogate healthcare decision maker all be off on 08/04 and 08/05. Dr. Valentin Grijalva. Please call me if they should be any urgent problems to return to. I will reexamine the patient on 08/06/2018.
[2018-08-03] MEDS: WARFARIN SODIUM 5 MG TABLET PO SCH (22:21)
[2018-08-03] MEDS: DONEPEZIL HCL 5 MG TABLET PO SCH (22:22)
[2018-08-03] MEDS: ROPINIROLE HCL 0.25 MG TABLET PO SCH (22:23)
[2018-08-03] MEDS: SERTRALINE HCL 50 MG TABLET PO SCH (22:23)
[2018-08-04] MEDS: LEVALBUTEROL HCL NEB 1.25 MG/3 ML AMPUL NEB SCH ×4 (01:52→20:00)
[2018-08-04] MEDS: IPRATROPIUM BROMIDE 0.02% NEB 0.5 MG/2.5 ML AMPUL NEB SCH ×4 (01:52→20:00)
[2018-08-04 05:06] LABS: INTERNATIONAL RATION (INR) 4.09; PROTHROMBIN TIME 41.5 SEC (11.4-15.4)
[2018-08-04] MEDS: LANSOPRAZOLE 15 MG TAB.RAP.DR PO SCH (05:40)
[2018-08-04] MEDS: DILTIAZEM HCL 60 MG TABLET PO SCH ×3 (05:40→21:53)
[2018-08-04] MEDS: LEVOTHYROXINE SODIUM 0.1 MG TABLET PO SCH (05:40)
[2018-08-04] MEDS: ASPIRIN 81 MG TABLET, ENT COATED PO SCH (09:09)
[2018-08-04] MEDS: FUROSEMIDE 20 MG TABLET PO SCH (09:09)
[2018-08-04] MEDS: METOPROLOL TARTRATE 25 MG TABLET PO SCH ×2 (09:09→21:48)
[2018-08-04] MEDS: PREDNISONE 20 MG TABLET PO SCH ×2 (09:09→17:12)
[2018-08-04] MEDS: LEVOFLOXACIN 500 MG TABLET PO SCH (09:10)
--- NOTE | 2018-08-04 14:24 | PDOC PROGRESS REPORT ---
Subjective Progress Note for:: 08/04/18 Subjective:: Patient is new to me. I am covering for Dr. Espinoza. This is a very pleasant 83 years old female patient brought with chief complaint of confusion and generalized weakness. Her flu swab is positive for influenza A and she completed 5 days of Tamiflu. Patient is also being treated for pneumonia with Levaquin. This morning I seen patient resting on recliner. She is awake alert and she is not in any form of distress. I reviewed her vital signs and blood works. Reason For Visit: ALTERED MENTAL STATUS Physical Exam Vital Signs: Temp Pulse Resp BP Pulse Ox 98.9 F 85 16 116/59 L 94 08/04/18 12:00 08/04/18 13:44 08/04/18 13:44 08/04/18 12:00 08/04/18 13:44 Intake & Output 08/03/18 08/04/18 08/05/18 06:59 06:59 06:59 Intake Total 738 450 Balance 738 450 Weight 81 kg 70.8 kg General appearance: PRESENT: no acute distress Eye exam: PRESENT: conjunctiva pink Mouth exam: PRESENT: moist Neck exam: ABSENT: carotid bruit, JVD, lymphadenopathy, thyromegaly Respiratory exam: PRESENT: clear to auscultation bianca. ABSENT: rales, rhonchi, wheezes Cardiovascular exam: PRESENT: RRR. ABSENT: diastolic murmur, rubs, systolic murmur GI/Abdominal exam: PRESENT: normal bowel sounds, soft. ABSENT: distended, guarding, mass, organolmegaly, rebound, tenderness Neurological exam: PRESENT: alert, altered Psychiatric exam: PRESENT: normal mood Results Laboratory Results: 08/02/18 05:16 08/02/18 05:16 07/28/18 07/28/18 13:50 13:50 Creatine Kinase 83 CK-MB (CK-2) 0.40 Troponin I < 0.012 Impressions: Head CT 07/28/18 15:49 IMPRESSION: No acute intracranial findings. Acute appearing Left maxillary sinusitis. EVIDENCE OF ACUTE STROKE: NO. Abdomen/Pelvis CT 07/28/18 18:26 IMPRESSION: Negative for acute intra-abdominal/pelvic process. Sigmoid diverticulosis. No CT evidence for diverticulitis. Fatty infiltrative change to the liver. Severe atheromatous change. Cardiomegaly. TECHNICAL DOCUMENTATION: Quality ID # 436: Final reports with documentation of one or more dose reduction techniques (e.g., Automated exposure control, adjustment of the mA and/or kV according to patient size, use of iterative reconstruction technique) copyright 2011 [employer]- All Rights Reserved Chest X-Ray 07/31/18 00:00 IMPRESSION: Bronchitis. No infiltrate. Assessment & Plan - Diagnosis (1) Influenza A Is this a current diagnosis for this admission?: Yes Plan: Treated (2) Pneumonia Is this a current diagnosis for this admission?: Yes Plan: Continue current antibiotics (3) COPD (chronic obstructive pulmonary disease) Is this a current diagnosis for this admission?: Yes Plan: Patient does not have any shortness of breath. Keep her on as needed bronchodilator. (4) Type 2 diabetes mellitus Is this a current diagnosis for this admission?: Yes Plan: Continue current regimen (5) Atrial fibrillation Qualifiers: Atrial fibrillation type: chronic Qualified Code(s): I48.2 - Chronic atrial fibrillation Is this a current diagnosis for this admission?: Yes Plan: Rate controlled. Continue current regimen.
[2018-08-04] MEDS: SERTRALINE HCL 50 MG TABLET PO SCH (21:48)
[2018-08-04] MEDS: DONEPEZIL HCL 5 MG TABLET PO SCH (21:48)
[2018-08-04] MEDS: ROPINIROLE HCL 0.25 MG TABLET PO SCH (21:49)
[2018-08-04] MEDS: WARFARIN SODIUM 5 MG TABLET PO SCH (21:53)
[2018-08-05] MEDS: LEVALBUTEROL HCL NEB 1.25 MG/3 ML AMPUL NEB SCH ×4 (02:40→19:45)
[2018-08-05] MEDS: IPRATROPIUM BROMIDE 0.02% NEB 0.5 MG/2.5 ML AMPUL NEB SCH ×4 (02:40→19:45)
[2018-08-05] MEDS: LEVOTHYROXINE SODIUM 0.1 MG TABLET PO SCH (05:19)
[2018-08-05] MEDS: LANSOPRAZOLE 15 MG TAB.RAP.DR PO SCH (05:19)
[2018-08-05] MEDS: DILTIAZEM HCL 60 MG TABLET PO SCH ×3 (05:19→22:09)
[2018-08-05] MEDS: METOPROLOL TARTRATE 25 MG TABLET PO SCH ×2 (10:14→22:07)
[2018-08-05] MEDS: LEVOFLOXACIN 500 MG TABLET PO SCH (10:14)
[2018-08-05] MEDS: PREDNISONE 20 MG TABLET PO SCH ×2 (10:15→17:12)
[2018-08-05] MEDS: ASPIRIN 81 MG TABLET, ENT COATED PO SCH (10:15)
[2018-08-05] MEDS: FUROSEMIDE 20 MG TABLET PO SCH (10:15)
--- NOTE | 2018-08-05 13:13 | PDOC PROGRESS REPORT ---
Subjective Progress Note for:: 08/05/18 Subjective:: Patient seen sitting on recliner. She is awake alert. She is not in pain or distress. She has completed 5 days course of Tamiflu for influenza A. Currently she is getting Levaquin for pneumonia and she will complete on 10 August. Reason For Visit: ALTERED MENTAL STATUS Physical Exam Vital Signs: Temp Pulse Resp BP Pulse Ox 98.0 F 71 16 111/57 L 95 08/05/18 11:01 08/05/18 11:01 08/05/18 11:01 08/05/18 11:01 08/05/18 11:01 Intake & Output 08/04/18 08/05/18 08/06/18 06:59 06:59 06:59 Intake Total 450 336 Balance 450 336 Weight 70.8 kg 80.5 kg General appearance: PRESENT: no acute distress Head exam: PRESENT: atraumatic Eye exam: PRESENT: conjunctiva pink Mouth exam: PRESENT: moist Neck exam: ABSENT: carotid bruit, JVD, lymphadenopathy, thyromegaly Respiratory exam: PRESENT: clear to auscultation bianca. ABSENT: rales, rhonchi, wheezes Cardiovascular exam: PRESENT: RRR. ABSENT: diastolic murmur, rubs, systolic murmur GI/Abdominal exam: PRESENT: normal bowel sounds, soft. ABSENT: distended, guarding, mass, organolmegaly, rebound, tenderness Neurological exam: PRESENT: alert, awake Results Laboratory Results: 08/02/18 05:16 08/02/18 05:16 07/28/18 07/28/18 13:50 13:50 Creatine Kinase 83 CK-MB (CK-2) 0.40 Troponin I < 0.012 Impressions: Head CT 07/28/18 15:49 IMPRESSION: No acute intracranial findings. Acute appearing Left maxillary sinusitis. EVIDENCE OF ACUTE STROKE: NO. Abdomen/Pelvis CT 07/28/18 18:26 IMPRESSION: Negative for acute intra-abdominal/pelvic process. Sigmoid diverticulosis. No CT evidence for diverticulitis. Fatty infiltrative change to the liver. Severe atheromatous change. Cardiomegaly. TECHNICAL DOCUMENTATION: Quality ID # 436: Final reports with documentation of one or more dose reduction techniques (e.g., Automated exposure control, adjustment of the mA and/or kV according to patient size, use of iterative reconstruction technique) copyright 2011 [employer]- All Rights Reserved Chest X-Ray 07/31/18 00:00 IMPRESSION: Bronchitis. No infiltrate. Assessment & Plan - Diagnosis (1) Influenza A Is this a current diagnosis for this admission?: Yes Plan: Treated (2) Pneumonia Is this a current diagnosis for this admission?: Yes Plan: Continue current antibiotics (3) COPD (chronic obstructive pulmonary disease) Is this a current diagnosis for this admission?: Yes Plan: Patient does not have any shortness of breath. Keep her on as needed bronchodilator. (4) Type 2 diabetes mellitus Is this a current diagnosis for this admission?: Yes Plan: Continue current regimen (5) Atrial fibrillation Qualifiers: Atrial fibrillation type: chronic Qualified Code(s): I48.2 - Chronic atrial fibrillation Is this a current diagnosis for this admission?: Yes Plan: Rate controlled. Continue current regimen.
[2018-08-05] MEDS: DONEPEZIL HCL 5 MG TABLET PO SCH (22:06)
[2018-08-05] MEDS: SERTRALINE HCL 50 MG TABLET PO SCH (22:06)
[2018-08-05] MEDS: ROPINIROLE HCL 0.25 MG TABLET PO SCH (22:06)
[2018-08-05] MEDS: WARFARIN SODIUM 5 MG TABLET PO SCH (22:07)
[2018-08-06] MEDS: LEVALBUTEROL HCL NEB 1.25 MG/3 ML AMPUL NEB SCH ×2 (02:10→08:24)
[2018-08-06] MEDS: IPRATROPIUM BROMIDE 0.02% NEB 0.5 MG/2.5 ML AMPUL NEB SCH ×2 (02:10→08:24)
[2018-08-06] MEDS: LANSOPRAZOLE 15 MG TAB.RAP.DR PO SCH (05:16)
[2018-08-06] MEDS: LEVOTHYROXINE SODIUM 0.1 MG TABLET PO SCH (05:16)
--- NOTE | 2018-08-06 08:24 | PDOC DISCHARGE SUMMARY ---
General - Admit/Disc Date/PCP Admission Date/Primary Care Provider: 07/28/18 17:25 NARESH PERALES MD Discharge Date: 08/06/18 - Discharge Diagnosis (1) Influenza A Is this a current diagnosis for this admission?: Yes Summary: Resolved continue current treatment (2) Atrial fibrillation Is this a current diagnosis for this admission?: Yes Summary: We will continue metoprolol and diltiazem (3) COPD (chronic obstructive pulmonary disease) Is this a current diagnosis for this admission?: Yes Summary: Continue current treatment (4) DNR (do not resuscitate) Is this a current diagnosis for this admission?: Yes Summary: Continue DNR status (5) Pneumonia and influenza Is this a current diagnosis for this admission?: Yes Summary: Complete 5 more days of Levaquin (6) Dementia Is this a current diagnosis for this admission?: Yes Summary: Continue current treatment (7) Diabetes mellitus Is this a current diagnosis for this admission?: Yes Summary: Continue current treatment (8) CAD (coronary artery disease) Is this a current diagnosis for this admission?: Yes Summary: Continue current treatment - Additional Information Resuscitation Status: Do Not Resuscitate Discharge Diet: As Tolerated Discharge Activity: Activity As Tolerated Prescriptions: Diltiazem HCl [Cardizem 60 mg Tablet] 60 mg PO Q12 #60 tablet Levofloxacin [Levaquin 500 mg Tablet] 500 mg PO DAILY #5 tablet Home Medications: Aspirin [Aspirin EC] 81 mg PO DAILY 11/11/14 Atorvastatin Calcium [Lipitor] 20 mg PO DAILY 11/11/14 Donepezil HCl [Aricept] 10 mg PO QHS 11/11/14 Metoprolol Tartrate [Lopressor 25 mg Tablet] 25 tab PO BID 11/11/14 Nitroglycerin [Nitro-Dur 5 mg (0.2 mg/Hr) Transdermal Patch] 1 patch TD QHS 11/11/14 Sertraline HCl [Zoloft 50 mg Tablet] 25 mg PO QHS 11/11/14 Warfarin Sodium [Coumadin 5 mg Tablet] 5 mg PO DAILY 11/11/14 Cholecalciferol (Vitamin D3) [Vitamin D3] 50,000 unit PO WE@1000 07/29/18 Furosemide [Lasix 40 mg Tablet] 40 mg PO QAM 07/29/18 Ipratropium/Albuterol Sulfate [Duoneb 3 ml Ampul] 3 ml NEB RTQ6 07/29/18 Levothyroxine Sodium 125 mcg PO DAILY 07/29/18 Memantine HCl 10 mg PO BID 07/29/18 Metformin HCl [Glucophage 500 mg Tablet] 500 mg PO QHS 07/29/18 Potassium Chloride [Klor-Con 10 Meq Capsule ER] 10 meq PO DAILY 07/29/18 Ranitidine HCl [Zantac 150 mg Tablet] 150 mg PO BID 07/29/18 Ropinirole HCl [Requip 0.25 mg Tablet] 0.25 mg PO QHS 07/29/18 Diltiazem HCl [Cardizem 60 mg Tablet] 60 mg PO Q12 #60 tablet 08/06/18 Levofloxacin [Levaquin 500 mg Tablet] 500 mg PO DAILY #5 tablet 08/06/18 History of Present Illness History of Present Illness: DEVANG CORONEL is a 83 year old female Hospital Course Hospital Course: The patient did well after the admission she was diagnosed with influenza even though she has received a flu vaccination. She has also developed probably a community-acquired pneumonia which was treated with antibiotics. She did quite well over the next several days she has developed some asthmatic bronchitis and was started on prednisone. She continued to improve. Unfortunately she has developed a rapid A. fib and cardiology recommended adding the OT as M to her metoprolol. Her heart rate has remained stable and she was discharged home Physical Exam Vital Signs: Temp Pulse Resp BP Pulse Ox 97.6 F 84 16 144/79 H 96 08/06/18 04:39 08/06/18 04:39 08/06/18 02:10 08/06/18 04:39 08/06/18 04:39 Intake & Output 08/05/18 08/06/18 08/07/18 06:59 06:59 06:59 Intake Total 336 1534 Balance 336 1534 Weight 80.5 kg 79.9 kg General appearance: PRESENT: no acute distress Head exam: PRESENT: atraumatic Eye exam: PRESENT: conjunctiva pink Neck exam: PRESENT: carotid bruit. ABSENT: JVD Respiratory exam: PRESENT: clear to auscultation bianca Cardiovascular exam: PRESENT: irregular rhythm, +S1, +S2 GI/Abdominal exam: PRESENT: normal bowel sounds, soft Extremities exam: PRESENT: full ROM Musculoskeletal exam: PRESENT: ambulatory Neurological exam: PRESENT: alert, awake Results Laboratory Results: 08/02/18 05:16 08/02/18 05:16 07/28/18 07/28/18 13:50 13:50 Creatine Kinase 83 CK-MB (CK-2) 0.40 Troponin I < 0.012 Impressions: Head CT 07/28/18 15:49 IMPRESSION: No acute intracranial findings. Acute appearing Left maxillary sinusitis. EVIDENCE OF ACUTE STROKE: NO. Abdomen/Pelvis CT 07/28/18 18:26 IMPRESSION: Negative for acute intra-abdominal/pelvic process. Sigmoid diverticulosis. No CT evidence for diverticulitis. Fatty infiltrative change to the liver. Severe atheromatous change. Cardiomegaly. TECHNICAL DOCUMENTATION: Quality ID # 436: Final reports with documentation of one or more dose reduction techniques (e.g., Automated exposure control, adjustment of the mA and/or kV according to patient size, use of iterative reconstruction technique) copyright 2011 [employer]- All Rights Reserved Chest X-Ray 07/31/18 00:00 IMPRESSION: Bronchitis. No infiltrate. Qualifiers - * PATIENT BEING DISCHARGED WITH ANY OF THE FOLLOWING DIAGNOSIS: No
[2018-08-06 10:54] VITALS: BP 112/56
== END 2018-08-06 09:23 | disposition home or self-care (01) | DRG 194 ==
LOC: ER 13:16 → UNDOADMIN 17:25 → EH 17:25 → 4W 21:20
PROVIDERS: ADMIT Internal Medicine; ATTEND Internal Medicine
DX: J11.00 Influenza due to unidentified influenza virus with unspecified type of pneumonia (principal); J44.0 Chronic obstructive pulmonary disease with (acute) lower respiratory infection; I48.2 Chronic atrial fibrillation; Z66 Do not resuscitate; E11.9 Type 2 diabetes mellitus without complications; I25.10 Atherosclerotic heart disease of native coronary artery without angina pectoris; F03.90 Unspecified dementia, unspecified severity, without behavioral disturbance, psychotic disturbance, mood disturbance, and anxiety; E78.5 Hyperlipidemia, unspecified; I10 Essential (primary) hypertension; K21.9 Gastro-esophageal reflux disease without esophagitis; Z79.84 Long term (current) use of oral hypoglycemic drugs; Z79.01 Long term (current) use of anticoagulants; Z79.82 Long term (current) use of aspirin; Z79.899 Other long term (current) drug therapy; Z90.49 Acquired absence of other specified parts of digestive tract; Z90.710 Acquired absence of both cervix and uterus; Z88.2 Allergy status to sulfonamides; Z88.1 Allergy status to other antibiotic agents; Z88.8 Allergy status to other drugs, medicaments and biological substances
CPT/HCPCS: 36415; 36600; 70450; 71045; 71046; 74177; 80048; 80053; 81001; 82550; 82553; 82803; 82962; 83735; 84443; 84484; 85025; 85610; 87040; 87804; 93005; 93010; 94640; 99285; J0696; J1650; J2405; J3490; J7030; J7512; J7620; S0119

== ENCOUNTER → 2018-08-15 | Outpatient (CLI) | payer MEDICARE, OTHER ==
[2018-08-15 14:30] LABS: PROTHROMBIN TIME 28.2 SEC (11.4-15.4)
== END ==
LOC: OD 13:51
PROVIDERS: ATTEND Internal Medicine
DX: I48.2 Chronic atrial fibrillation (principal)
CPT/HCPCS: 36415; 85610

== ENCOUNTER → 2018-09-07 | Outpatient (CLI) | payer MEDICARE, OTHER ==
[2018-09-07 13:28] LABS: INTERNATIONAL RATION (INR) 1.96; PROTHROMBIN TIME 23.3 SEC (11.4-15.4)
== END ==
LOC: OD 13:00
PROVIDERS: ATTEND Internal Medicine
DX: I48.2 Chronic atrial fibrillation (principal)
CPT/HCPCS: 36415; 85610

== ENCOUNTER → 2018-10-22 | Outpatient (CLI) | payer MEDICARE, OTHER ==
[2018-10-22 14:23] LABS: PROTHROMBIN TIME 22.7 SEC (11.4-15.4)
== END ==
LOC: OD 13:19
PROVIDERS: ATTEND Internal Medicine
DX: I48.2 Chronic atrial fibrillation (principal)
CPT/HCPCS: 36415; 85610

== ENCOUNTER → 2018-11-29 | Outpatient (CLI) | payer MEDICARE, OTHER ==
--- NOTE | 2018-11-29 11:59 | RADIOLOGY REPORT (SQ) ---
EXAM DESCRIPTION: VENOUS UNILATERAL LOWER COMPLETED DATE/TIME: 11/29/2018 11:39 am REASON FOR STUDY: LLE SWELLING I82.402 ACUTE EMBOLISM AND THOMBOS UNSP DEEP VEINS OF L LOW R60.9 EDEMA, UNSPECIFIED COMPARISON: None. TECHNIQUE: Dynamic and static méndez scale and color images acquired of the left leg venous system. Se lected spectral images acquired with additional compression and augmentation maneuvers. The contralat eral common femoral vein and saphenofemoral junction were also imaged. Images stored on PACS. LIMITATIONS: None. FINDINGS: LEFT COMMON FEMORAL: Normal phasicity, compression and augmentation. No visualized echogenic material on g ray scale. No defects on color images. FEMORAL: Normal compression and augmentation. No visualized echogenic material on méndez scale. No defe cts on color images. POPLITEAL: Normal compression, augmentation. No visualized echogenic material on méndez scale. No defec ts on color images. Posterior tibial and peroneal veins: Normal compression, augmentation. No visualized echogenic materi al on méndez scale. No defects on color images. GSV and SSV: Normal compression, augmentation. No visualized echogenic material on méndez scale. No def ects on color images. ANY DEEP VENOUS INSUFFICIENCY: Not evaluated. ANY EVIDENCE OF POPLITEAL CYST: No. OTHER: No other significant finding. RIGHT COMMON FEMORAL VEIN AND SAPHENOFEMORAL JUNCTION: Normal phasicity, compression and augmentation. No visualized echogenic material on méndez scale. No de fects on color images. IMPRESSION: NO EVIDENCE OF DVT OR SVT IN THE LEFT LEG. TECHNICAL DOCUMENTATION: JOB ID: [id number] [employer]- All Rights Reserved Reading location - IP/workstation name: [email or web address]
== END ==
LOC: SP 10:08
PROVIDERS: ATTEND Internal Medicine
DX: I82.402 Acute embolism and thrombosis of unspecified deep veins of left lower extremity (principal); M79.89 Other specified soft tissue disorders
CPT/HCPCS: 93971

== ENCOUNTER → 2018-12-27 | Outpatient (CLI) | payer MEDICARE, OTHER ==
[2018-12-27 12:02] LABS: INTERNATIONAL RATION (INR) 2.21; PROTHROMBIN TIME 24.9 SEC (11.4-15.4)
== END ==
LOC: OD 11:18
PROVIDERS: ATTEND Internal Medicine
DX: I48.91 Unspecified atrial fibrillation (principal)
CPT/HCPCS: 36415; 85610

== ENCOUNTER → 2019-01-10 | Outpatient (CLI) | payer MEDICARE, OTHER ==
--- NOTE | 2019-01-14 09:29 | XCELERA REPORT ---
[address] [address] Lower Extremity Arterial Evaluation Name: DEVANG CORONEL Age: 83 yrs Gender: Female : 1935 Patient Status: Outpatient Patient Location: [facility] Study Date: 01/10/2019 01:13 PM Procedure: A color flow and duplex scan of the lower extremity arteries was performed bilaterally with velocity and waveform anaylsis. Ankle brachial indicies performed. Reason For Study: LEG PAIN Ordering Physician: JANES HEATH Performed By: Anderson Feliciano Measurements and Calculations Right Left PERSONNEL INTERVIEWER PSV 170.9 104.2 cm/sec Prox PFA PSV -211.2 -131.3cm/sec Prox SFA PSV 110.0 113.8 cm/sec Mid SFA PSV -95.5 -62.2 cm/sec Dist SFA PSV -129.9 -386.3cm/sec Prox Pop A PSV 103.1 97.0 cm/sec Dist Pop A PSV -49.6 -40.9 cm/sec Dist JYOTI PSV 32.6 27.9 cm/sec Prox SPORTS [employer]ICINE MASSEUR PSV 22.0 7.3 cm/sec Mid SPORTS [employer]IC[employer] MASSEUR PSV 14.3 cm/sec Dist SPORTS MEDICINE MASSEUR PSV 13.0 15.1 cm/sec Prox Norma A 40.4 cm/sec PSV Mid Norma A PSV 6.5 cm/sec Suraj Pedis PSV 45.5 35.5 cm/sec Right Side Arterial Evaluation Normal velocity and triphasic waveforms noted in the Common Femoral artery. . Biphasic with increased velocity in the Deep Femoral. Monophasic with low normal velocity, spectral broadening in the Popliteal, infrageniculate vessels. Ankle Brachial index not ordered.. Left Side Arterial Evaluation Normal velocity and triphasic waveforms noted in the Common Femoral artery. . Biphasic with much increased velocity in the Deep Femoral. Monophasic with low normal velocity, spectral broadening in the Popliteal, lower velocity in the infrageniculate vessels. Ankle Brachial index not ordered.. Interpretation Summary Severe hemodynamically significant lesions in the bilateral lower extremities, on duplex imaging, at rest. 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 : JANES HEATH > Janes Heath
== END ==
LOC: SP 12:32
PROVIDERS: ATTEND Surgery
DX: M79.606 Pain in leg, unspecified (principal)
CPT/HCPCS: 93925

== ENCOUNTER → 2019-01-30 | Outpatient (CLI) | payer MEDICARE, OTHER ==
[2019-01-30 15:37] LABS: INTERNATIONAL RATION (INR) 1.82; PROTHROMBIN TIME 21.3 SEC (11.4-15.4)
== END ==
LOC: OD 14:12
PROVIDERS: ATTEND Internal Medicine
DX: Z51.81 Encounter for therapeutic drug level monitoring (principal); Z79.01 Long term (current) use of anticoagulants
CPT/HCPCS: 36415; 85610

== ENCOUNTER → 2019-02-19 | Outpatient (CLI) | payer MEDICARE, OTHER ==
[2019-02-19 16:02] LABS: INTERNATIONAL RATION (INR) 1.73; PROTHROMBIN TIME 20.4 SEC (11.4-15.4)
== END ==
LOC: OD 14:57
PROVIDERS: ATTEND Internal Medicine
DX: I48.91 Unspecified atrial fibrillation (principal)
CPT/HCPCS: 36415; 85610

== ENCOUNTER → 2019-02-27 | Outpatient (CLI) | payer MEDICARE, OTHER ==
[2019-02-27 12:36] LABS: INTERNATIONAL RATION (INR) 1.88; PROTHROMBIN TIME 21.9 SEC (11.4-15.4)
== END ==
LOC: OD 11:38
PROVIDERS: ATTEND Internal Medicine
DX: I48.91 Unspecified atrial fibrillation (principal)
CPT/HCPCS: 36415; 85610

== ENCOUNTER → 2019-04-05 | Outpatient (CLI) | payer MEDICARE, OTHER ==
[2019-04-05 10:49] LABS: ABSOLUTE BASOPHILS # (AUTO) 0.1 10^3/uL (0.0-0.2); ABSOLUTE EOSINOPHILS # (AUTO) 0.3 10^3/uL (0.0-0.6); ABSOLUTE LYMPHOCYTES (AUTO) 2.4 10^3/uL (0.5-4.7); ABSOLUTE MONOCYTES (AUTO) 0.8 10^3/uL (0.1-1.4); ABSOLUTE NEUT (AUTO) 4.3 10^3/uL (1.7-8.2); BASOPHILS % (AUTO) 0.7 % (0-2); EOSINOPHILS % (AUTO) 3.5 % (0-6); HEMATOCRIT 42.3 % (36.0-47.0); HEMOGLOBIN 14.1 g/dL (12.0-15.5); MEAN CORPUSCULAR HEMOGLOBIN 29.3 pg (27.0-33.4); MEAN CORPUSCULAR HGB CONC 33.4 g/dL (32.0-36.0); MEAN CORPUSCULAR VOLUME 88 fl (80-97); MONOCYTES % (AUTO) 9.7 % (3-13); PLATELET COUNT 235 10^3/uL (150-450); RED BLOOD COUNT 4.82 10^6/uL (3.72-5.28); RED CELL DISTRIBUTION WIDTH 14.1 % (11.5-14.0); SEGMENTED NEUTROPHILS % (AUTO) 55.1 % (42-78); TOTAL CELLS COUNTED % (AUTO) 100 %; WHITE BLOOD COUNT 7.7 10^3/uL (4.0-10.5)
[2019-04-05 10:52] LABS: APPEARANCE,URINE SLIGHTLY-CLOUDY; BILIRUBIN,URINE NEGATIVE (NEGATIVE); COLOR,URINE YELLOW; GLUCOSE, URINE NEGATIVE (NEGATIVE); KETONES,URINE NEGATIVE (NEGATIVE); LEUKOCYTE ESTERASE,URINE LARGE (NEGATIVE); NITRITE,URINE POSITIVE (NEGATIVE); PROTEIN,URINE NEGATIVE (NEGATIVE); URINE SPECIFIC GRAVITY 1.019; UROBILINOGEN,URINE NEGATIVE mg/dL (<2.0)
[2019-04-05 10:52] LABS: INTERNATIONAL RATION (INR) 2.18; PROTHROMBIN TIME 24.7 SEC (11.4-15.4)
[2019-04-05 11:13] LABS: ALBUMIN 4.7 g/dL (3.5-5.0); ALKALINE PHOSPHATASE 101 U/L (38-126); ANION GAP 12 (5-19); ASPARTATE AMINO TRANSFERASE 32 U/L (14-36); BILIRUBIN,DIRECT 0.2 mg/dL (0.0-0.4); BILIRUBIN,TOTAL 0.9 mg/dL (0.2-1.3); BLOOD UREA NITROGEN 14 mg/dL (7-20); CALCIUM 9.9 mg/dL (8.4-10.2); CARBON DIOXIDE 26 mmol/L (22-30); CHLORIDE 104 mmol/L (98-107); GLUCOSE 104 mg/dL (75-110); POTASSIUM 4.3 mmol/L (3.6-5.0); TOTAL PROTEIN 8.5 g/dL (6.3-8.2)
== END ==
LOC: OD 09:21
PROVIDERS: ATTEND Internal Medicine
DX: E11.9 Type 2 diabetes mellitus without complications (principal); I25.10 Atherosclerotic heart disease of native coronary artery without angina pectoris; N39.0 Urinary tract infection, site not specified; R53.83 Other fatigue; I48.91 Unspecified atrial fibrillation
CPT/HCPCS: 36415; 80053; 81001; 83735; 84443; 85025; 85610; 87086; 87088; 87186

== ENCOUNTER 2019-04-13 11:27 | Emergency (ER) | payer MEDICARE, OTHER ==
--- NOTE | 2019-04-13 11:40 | ER Document Report ---
ED Medical Screen (RME) - General Chief Complaint: Urinary Problem Stated Complaint: POSSIBLE UTI Time Seen by Provider: 04/13/19 11:35 Primary Care Provider: NARESH PERALES MD [Primary Care Provider] - Follow up as needed Information source: Relative Notes: Patient presents with daughter who states that patient has a urinary tract infection. Patient states she received a call from patient's primary doctor stating that she has a super bug growing in her urine culture. Patient has had low back pain. No fever, no nausea or vomiting. Daughter states that patient does have a history of dementia although has been more confused than normal over the past 3 weeks. hx: A. fib, hypertension, dementia, COPD I have greeted and performed a rapid initial assessment of this patient. A comprehensive ED assessment and evaluation of the patient, analysis of test results and completion of the medical decision making process will be conducted by additional ED providers. TRAVEL OUTSIDE OF THE [place] IN LAST 30 DAYS: No - Related Data Allergies/Adverse Reactions: [place] And Derivatives Allergy (Unknown, Verified 07/28/18 13:19) meperidine HCl [From Demerol] Allergy (Unknown, Verified 07/28/18 13:19) Sulfa (Sulfonamide Antibiotics) Allergy (Unknown, Verified 07/28/18 13:19) morphine [Morphine] Adverse Reaction (Intermediate, Verified 07/28/18 13:19) Vomiting amoxicillin trihydrate [From Augmentin] Adverse Reaction (Unknown, Verified 07/28/18 13:19) Potassium Clavulanate * [From Augmentin] Adverse Reaction (Unknown, Verified 07/28/18 13:19) Past Medical History - Past Medical History Cardiac Medical History: Reports: Hx Atrial Fibrillation, Hx Coronary Artery Disease, Hx Hypercholesterolemia, Hx Hypertension Pulmonary Medical History: Reports: Hx COPD Endocrine Medical History: Reports: Hx Diabetes Mellitus Type 2 Renal/ Medical History: Denies: Hx Peritoneal Dialysis GI Medical History: Reports: Hx Gastroesophageal Reflux Disease Past Surgical History: Reports: Hx Bowel Surgery - exploratory, Hx Breast Surgery - cyst removal, Hx Cholecystectomy, Hx Hysterectomy, Hx Pancreatic Surgery - Immunizations Hx Diphtheria, Pertussis, Tetanus Vaccination: Yes Physical Exam - Back Back: CVA tenderness Doctor's Discharge - Discharge Referrals: NARESH PERALES MD [Primary Care Provider] - Follow up as needed
[2019-04-13 12:49] LABS: INTERNATIONAL RATION (INR) 1.59; PROTHROMBIN TIME 19.1 SEC (11.4-15.4)
[2019-04-13 12:56] LABS: ABSOLUTE EOSINOPHILS # (AUTO) 0.2 10^3/uL (0.0-0.6); ABSOLUTE LYMPHOCYTES (AUTO) 2.5 10^3/uL (0.5-4.7); ABSOLUTE MONOCYTES (AUTO) 0.7 10^3/uL (0.1-1.4); ABSOLUTE NEUT (AUTO) 4.2 10^3/uL (1.7-8.2); BASOPHILS % (AUTO) 0.6 % (0-2); EOSINOPHILS % (AUTO) 2.4 % (0-6); HEMATOCRIT 42.1 % (36.0-47.0); HEMOGLOBIN 13.6 g/dL (12.0-15.5); LYMPHOCYTES % (AUTO) 32.1 % (13-45); MEAN CORPUSCULAR HEMOGLOBIN 29.3 pg (27.0-33.4); MEAN CORPUSCULAR HGB CONC 32.3 g/dL (32.0-36.0); MEAN CORPUSCULAR VOLUME 91 fl (80-97); MONOCYTES % (AUTO) 9.7 % (3-13); PLATELET COUNT 263 10^3/uL (150-450); RED BLOOD COUNT 4.65 10^6/uL (3.72-5.28); RED CELL DISTRIBUTION WIDTH 14.1 % (11.5-14.0); SEGMENTED NEUTROPHILS % (AUTO) 55.2 % (42-78); TOTAL CELLS COUNTED % (AUTO) 100 %; WHITE BLOOD COUNT 7.6 10^3/uL (4.0-10.5)
[2019-04-13 13:02] LABS: APPEARANCE,URINE CLEAR; BILIRUBIN,URINE NEGATIVE (NEGATIVE); COLOR,URINE YELLOW; GLUCOSE, URINE NEGATIVE (NEGATIVE); KETONES,URINE NEGATIVE (NEGATIVE); LEUKOCYTE ESTERASE,URINE NEGATIVE (NEGATIVE); NITRITE,URINE NEGATIVE (NEGATIVE); PROTEIN,URINE NEGATIVE (NEGATIVE); URINE SPECIFIC GRAVITY 1.006; UROBILINOGEN,URINE NEGATIVE mg/dL (<2.0)
[2019-04-13 13:14] LABS: ALBUMIN 4.4 g/dL (3.5-5.0); ALKALINE PHOSPHATASE 82 U/L (38-126); ANION GAP 10 (5-19); ASPARTATE AMINO TRANSFERASE 31 U/L (14-36); BILIRUBIN,DIRECT 0.2 mg/dL (0.0-0.4); BILIRUBIN,TOTAL 0.9 mg/dL (0.2-1.3); BLOOD UREA NITROGEN 15 mg/dL (7-20); CARBON DIOXIDE 24 mmol/L (22-30); CHLORIDE 106 mmol/L (98-107); GLUCOSE 109 mg/dL (75-110)
[2019-04-13] MEDS ORDERED: NITROFURANTOIN MONOHYD/M-CRYST 100 MG CAPSULE PO ONE (14:41)
--- NOTE | 2019-04-13 15:27 | ER Document Report ---
ED General - General Chief Complaint: Abnormal Lab Results Stated Complaint: POSSIBLE UTI Time Seen by Provider: 04/13/19 11:35 Primary Care Provider: NARESH PERALES MD [Primary Care Provider] - Follow up as needed TRAVEL OUTSIDE OF THE [place] IN LAST 30 DAYS: No - HPI Notes: Patient is an 84-year-old female brought to the emergency department for evaluation by daughters. Evidently she has a history of dementia, but she is been increasingly confused over the last week. They had an evaluation performed by Dr. Perales, which included urinalysis. They were contacted today, told that she grew a "super bug" and would require IV antibiotics and admission to the hospital. The patient has been more confused, slightly more sleepy per family, but is eating and drinking normally. No fevers or chills. No nausea vomiting. The patient at this time denies any sort of complaints or concerns. - Related Data Allergies/Adverse Reactions: [place] And Derivatives Allergy (Unknown, Verified 07/28/18 13:19) meperidine HCl [From Demerol] Allergy (Unknown, Verified 07/28/18 13:19) Sulfa (Sulfonamide Antibiotics) Allergy (Unknown, Verified 07/28/18 13:19) morphine [Morphine] Adverse Reaction (Intermediate, Verified 07/28/18 13:19) Vomiting amoxicillin trihydrate [From Augmentin] Adverse Reaction (Unknown, Verified 07/28/18 13:19) Potassium Clavulanate * [From Augmentin] Adverse Reaction (Unknown, Verified 07/28/18 13:19) Home Medications: List reviewed, please see chart Past Medical History - General Information source: Patient, Relative - Social History Smoking Status: Unknown if Ever Smoked Family History: Reviewed & Not Pertinent Patient has suicidal ideation: No Patient has homicidal ideation: No - Past Medical History Cardiac Medical History: Reports: Hx Atrial Fibrillation, Hx Coronary Artery Disease, Hx Hypercholesterolemia, Hx Hypertension Pulmonary Medical History: Reports: Hx COPD Endocrine Medical History: Reports: Hx Diabetes Mellitus Type 2 Renal/ Medical History: Denies: Hx Peritoneal Dialysis GI Medical History: Reports: Hx Gastroesophageal Reflux Disease Past Surgical History: Reports: Hx Bowel Surgery - exploratory, Hx Breast Surgery - cyst removal, Hx Cholecystectomy, Hx Hysterectomy, Hx Pancreatic Surgery - Immunizations Hx Diphtheria, Pertussis, Tetanus Vaccination: Yes Hx Pneumococcal Vaccination: 06/19/11 Review of Systems - Review of Systems Constitutional: See HPI EENT: No symptoms reported Cardiovascular: No symptoms reported Respiratory: No symptoms reported Gastrointestinal: No symptoms reported Genitourinary: No symptoms reported Musculoskeletal: No symptoms reported Skin: No symptoms reported Neurological/Psychological: See HPI Physical Exam - Vital signs Vitals: Temp Pulse Resp BP Pulse Ox 97.4 F 69 16 125/56 L 93 04/13/19 11:43 04/13/19 11:43 04/13/19 11:43 04/13/19 11:43 04/13/19 11:43 - Notes Notes: This is a pleasant 84-year-old female, sitting up in the bed, eating a hamburger and [place] fries. She is awake and alert, cooperative. She moves all 4 extremities spontaneously. Vital signs reviewed, please refer to chart. Head is normocephalic, atraumatic. Pupils equal round, reactive to light. Neck is supple without meningismus. Heart is regular rate and rhythm. Lungs are clear to auscultation bilaterally. Abdomen is soft, nontender, normoactive bowel sounds throughout. Extremities without cyanosis, clubbing. Posterior calves are nontender. Peripheral pulses are equal. Skin is warm and dry. Course - Re-evaluation Re-evalutation: 04/13/19 15:24 Patient presents emergency department for evaluation. She had laboratory investigations ordered and is obtained through triage. I did review this patient's urine culture, 8 days ago she did grow ESBL in culture. Today, however, she has absolutely no signs of urinary tract infection on her urinalysis. She has a normal white blood cell count, normal heart rate. She is afebrile. She is eating and drinking normally. I discussed this at length with the patient's family. I did attempt to contact Dr. Perales, was unsuccessful. We discussed possible options, it was decided to try and treat her with Macrobid, despite the negative work-up here. Family was amenable to th is. They are to have a follow-up appointment with Dr. Perales this week, and they are to keep that. Return to the ED with worsening. - Vital Signs Vital signs: Temp Pulse Resp BP Pulse Ox 97.4 F 69 16 125/56 L 93 04/13/19 11:43 04/13/19 11:43 04/13/19 11:43 04/13/19 11:43 04/13/19 11:43 - Laboratory Result Diagrams: 04/13/19 12:20 04/13/19 12:20 Laboratory results interpreted by me: 04/13/19 04/13/19 04/13/19 12:20 12:20 12:20 RDW 14.1 H PT 19.1 H Urine Blood SMALL H Discharge - Discharge Clinical Impression: Altered mental status, unspecified Condition: Stable Disposition: HOME, SELF-CARE Instructions: Nitrofurantoin ([facility]) Additional Instructions: Take antibiotic as prescribed until gone. Keep appointment with primary care provider next week as scheduled. If she develops fever, vomiting, or any other new or concerning symptoms, return immediately to the emergency department for reevaluation. Referrals: NARESH PREALES MD [Primary Care Provider] - Follow up as needed
[2019-04-13 16:01] VITALS: BP 138/69
== END 2019-04-13 16:02 | disposition home or self-care (01) ==
LOC: ER 11:27
DX: R41.82 Altered mental status, unspecified (principal); R79.89 Other specified abnormal findings of blood chemistry; F03.90 Unspecified dementia, unspecified severity, without behavioral disturbance, psychotic disturbance, mood disturbance, and anxiety; I25.10 Atherosclerotic heart disease of native coronary artery without angina pectoris; I10 Essential (primary) hypertension; J44.9 Chronic obstructive pulmonary disease, unspecified; E11.9 Type 2 diabetes mellitus without complications
CPT/HCPCS: 99283; 36415; 87040; 87086; 85025; 85610; 80053; 81001; A9270; J8499

== ENCOUNTER → 2019-04-25 | Outpatient (CLI) | payer MEDICARE, OTHER ==
[2019-04-25 11:57] LABS: INTERNATIONAL RATION (INR) 1.75; PROTHROMBIN TIME 20.6 SEC (11.4-15.4)
== END ==
LOC: OD 11:03
PROVIDERS: ATTEND Internal Medicine
DX: I48.91 Unspecified atrial fibrillation (principal)
CPT/HCPCS: 36415; 85610

== ENCOUNTER 2019-05-09 14:57 | Inpatient (IN) | payer MEDICARE, OTHER ==
--- NOTE | 2019-05-09 16:08 | ER Document Report ---
ED General - General Chief Complaint: Shoulder Injury Stated Complaint: LEFT SHOULDER PAIN Time Seen by Provider: 05/09/19 15:46 Primary Care Provider: NARESH PERALES MD [Primary Care Provider] - Follow up as needed Mode of Arrival: Medic Information source: Patient, Relative Notes: 84-year-old female presents after a trip and fall at home that occurred just pr ior to arrival. Daughter is at the bedside and states that the mother was walking to her recliner when she tripped catching her left shoulder onto the couch and falling onto her left side. Patient denies head injury, loss of consciousness, preceding chest pain, shortness of breath or dizziness. Patient is currently complaining of left shoulder, elbow and left wrist pain. TRAVEL OUTSIDE OF THE [place] IN LAST 30 DAYS: No - HPI Onset: Just prior to arrival Onset/Duration: Sudden Quality of pain: Throbbing Severity: Severe Pain Level: 4 Associated symptoms: denies: Chest pain, Fever, Nausea, Vomiting, Shortness of breath, Weakness Exacerbated by: Movement Relieved by: Denies Similar symptoms previously: No Recently seen / treated by doctor: No - Related Data Allergies/Adverse Reactions: [place] And Derivatives Allergy (Unknown, Verified 07/28/18 13:19) meperidine HCl [From Demerol] Allergy (Unknown, Verified 07/28/18 13:19) Sulfa (Sulfonamide Antibiotics) Allergy (Unknown, Verified 07/28/18 13:19) morphine [Morphine] Adverse Reaction (Intermediate, Verified 07/28/18 13:19) Vomiting amoxicillin trihydrate [From Augmentin] Adverse Reaction (Unknown, Verified 07/28/18 13:19) Potassium Clavulanate * [From Augmentin] Adverse Reaction (Unknown, Verified 07/28/18 13:19) Home Medications: synthroid, vit D, daily vit, asa 81mg, potassium, lasix, warfarin, omeprazole, lopressor, diltiazem, lipitor, metformin, ropinirole, rivastigmine patch Past Medical History - General Information source: Patient, Relative - Social History Smoking Status: Never Smoker Frequency of alcohol use: None Drug Abuse: None Lives with: Alone Family History: Reviewed & Not Pertinent Patient has suicidal ideation: No Patient has homicidal ideation: No - Past Medical History Cardiac Medical History: Reports: Hx Atrial Fibrillation, Hx Coronary Artery Disease, Hx Hypercholesterolemia, Hx Hypertension Pulmonary Medical History: Reports: Hx COPD Endocrine Medical History: Reports: Hx Diabetes Mellitus Type 2 Renal/ Medical History: Denies: Hx Peritoneal Dialysis GI Medical History: Reports: Hx Gastroesophageal Reflux Disease Past Surgical History: Reports: Hx Bowel Surgery - exploratory, Hx Breast Surgery - cyst removal, Hx Cholecystectomy, Hx Hysterectomy, Hx Pancreatic Surgery - Immunizations Hx Diphtheria, Pertussis, Tetanus Vaccination: Yes Hx Pneumococcal Vaccination: 06/19/11 Review of Systems - Review of Systems Notes: REVIEW OF SYSTEMS: CONSTITUTIONAL : Denies fever, chills, or sweats. Denies recent illness. Denies weight loss, recent hospitalizations. EENT: Denies visual changes, eye pain. Denies sore throat, oral lesions, difficulty swallowing. CARDIOVASCULAR: Denies chest pain. Denies palpitations. Denies lower extremity edema. RESPIRATORY: Denies cough. Denies shortness of breath, wheezing. GASTROINTESTINAL: Denies abdominal pain or distention. Denies nausea, vomiting, or diarrhea. Denies blood in vomitus, stools, or per rectum. Denies black, tarry stools. Denies constipation. GENITOURINARY: Denies difficulty urinating, painful urination, frequency, blood in urine, or vaginal discharge. MUSCULOSKELETAL: Denies back or neck pain or stiffness. + joint pain or swelling. SKIN: Denies rash, lesions or sores. HEMATOLOGIC : Denies easy bruising or bleeding. LYMPHATIC: Denies swollen glands. NEUROLOGICAL: Denies confusion or altered mental status. Denies loss of consciousness. Denies dizziness or lightheadedness. Denies headache. Denies weakness or paralysis. Denies problems difficulty with ambulation, slurred speech. Denies sensory loss, numbness, or tingling. Denies seizures. PSYCHIATRIC: Denies anxiety or stress. Denies depression, suicidal ideation, or homicidal ideation. Denies visual or auditory hallucinations. Physical Exam - Notes Notes: PHYSICAL EXAMINATION: GENERAL: Appears to be in pain. HEAD: Atraumatic, normocephalic. EYES: Pupils equal round and reactive to light, extraocular movements intact, conjunctiva are normal. ENT: Nares patent, oropharynx clear without exudates. Moist mucous membranes. NECK: Normal range of motion, supple without lymphadenopathy LUNGS: Breath sounds clear to auscultation bilaterally and equal. No wheezes rales or rhonchi. HEART: Regular rate with irregular rhythm. ABDOMEN: Soft, nontender, nondistended abdomen. No guarding, no rebound. No masses appreciated. Female : deferred Musculoskeletal: Normal range of motion, no pitting or edema. No cyanosis. No obvious deformity of the left shoulder. Diffuse tenderness with palpation along the left humerus, left elbow. No neuro deficits. NEUROLOGICAL: Cranial nerves grossly intact. Normal speech, normal gait. Normal sensory, motor exams PSYCH: Normal mood, normal affect. SKIN: Warm, Dry, normal turgor, no rashes or lesions noted. Course - Re-evaluation Re-evalutation: 05/09/19 17:[address] 05/09/19 15:47 IMPRESSION: NORMAL BRAIN CT WITHOUT CONTRAST. EVIDENCE OF ACUTE STROKE: NO. Cervical Spine CT 05/09/19 15:48 IMPRESSION: CHRONIC DEGENERATIVE CHANGES. NO ACUTE FINDINGS. Humerus X-Ray 05/09/19 16:08 IMPRESSION: DISPLACED OBLIQUE FRACTURE OF THE MIDSHAFT OF THE HUMERUS. Wrist X-Ray 05/09/19 16:08 IMPRESSION: NEGATIVE STUDY OF THE LEFT WRIST. NO RADIOGRAPHIC EVIDENCE OF ACUTE INJURY. Laboratory 05/09/19 05/09/19 18:00 18:00 WBC 15.1 H RBC 4.64 Hgb 13.6 Hct 40.7 MCV 88 MCH 29.3 MCHC 33.4 RDW 13.6 Plt Count 229 Lymph % (Auto) 10.0 L Cochran % (Auto) 6.8 Eos % (Auto) 0.3 Baso % (Auto) 0.4 Absolute Neuts (auto) 12.5 H Absolute Lymphs (auto) 1.5 Absolute Monos (auto) 1.0 Absolute Eos (auto) 0.0 Absolute Basos (auto) 0.1 Seg Neutrophils % 82.5 H Sodium 142.1 Potassium 4.3 Chloride 106 Carbon Dioxide 23 Anion Gap 13 BUN 15 Creatinine 0.80 Est GFR ( Amer) > 60 Est GFR (MDRD) Non-Af > 60 Glucose 167 H Calcium 9.3 05/09/19 17:38 Patient found to have a midshaft humerus fracture. Daughter at the bedside states that the patient lives alone and she cannot currently care for herself. I did speak to Dr. Stewart orthopedic surgery on-call who states that this could be fixed operatively if the family chooses. I did speak to Dr. Mahoney who has agreed to evaluate the patient. Labs pending. 05/09/19 19:01 Patient placed in sugar tong splint for comfort. She will be admitted for observation. - Laboratory Result Diagrams: 05/09/19 18:00 05/09/19 18:00 Laboratory results interpreted by me: 05/09/19 05/09/19 18:00 18:00 WBC 15.1 H Lymph % (Auto) 10.0 L Absolute Neuts (auto) 12.5 H Seg Neutrophils % 82.5 H Glucose 167 H - Diagnostic Test Radiology reviewed: Image reviewed, Reports reviewed - EKG Interpretation by Me Rate: Normal Rhythm: A.Fib When compared to previous EKG there are: No significant change Discharge - Discharge Clinical Impression: Intractable pain Fall Qualifiers: Encounter type: initial encounter Qualified Code(s): W19.XXXA - Unspecified fall, initial encounter Closed left humeral fracture Qualifiers: Encounter type: initial encounter Humerus Location: shaft Fracture morphology: oblique Fracture alignment: displaced Qualified Code(s): S42.332A - Displaced oblique fracture of shaft of humerus, left arm, initial encounter for closed fracture Atrial fibrillation Qualifiers: Atrial fibrillation type: unspecified chronic Qualified Code(s): I48.2 - Chronic atrial fibrillation Condition: Fair Disposition: ADMITTED OBSERVATION Admitting Provider: Denzel (Hospitalist) Referrals: NARESH PERALES MD [Primary Care Provider] - Follow up as needed
[2019-05-09] MEDS ORDERED: OXYCODONE-ACETAMINOPHEN 5-325 MG TABLET PO ONE (16:09)
[2019-05-09] MEDS ORDERED: ONDANSETRON 4 MG TAB.RAPDIS PO ONE (16:09)
--- NOTE | 2019-05-09 16:42 | RADIOLOGY REPORT (SQ) ---
EXAM DESCRIPTION: CT HEAD WITHOUT COMPLETED DATE/TIME: 05/09/2019 4:24 pm REASON FOR STUDY: fall COMPARISON: CT brain 07/28/2018 TECHNIQUE: Axial images acquired through the brain without intravenous contrast. Images reviewed wi th bone, brain and subdural windows. Additional sagittal and coronal reconstructions were generated. Images stored on PACS. All CT scanners at this facility use dose modulation, iterative reconstruction, and/or weight based d osing when appropriate to reduce radiation dose to as low as reasonably achievable (ALARA). [facility]: Dose Right [facility]: CareDose [facility]: Dose Right [facility]: Teradose 4D [facility]: Snapsheet RADIATION DOSE: CT Rad equipment meets quality standard of care and radiation dose reduction techniq ues were employed. CTDIvol: 53.2 mGy. DLP: 964 mGy-cm. mGy. LIMITATIONS: None. FINDINGS: VENTRICLES: Normal size and contour. CEREBRUM: No masses. No hemorrhage. No midline shift. No evidence for acute infarction. Normal gra y/white matter differentiation. No areas of low density in the white matter. CEREBELLUM: No masses. No hemorrhage. No alteration of density. No evidence for acute infarction. EXTRAAXIAL SPACES: No fluid collections. No masses. ORBITS AND GLOBE: No intra- or extraconal masses. Normal contour of globe without masses. CALVARIUM: No fracture. PARANASAL SINUSES: No fluid or mucosal thickening. SOFT TISSUES: No mass or hematoma. OTHER: No other significant finding. IMPRESSION: NORMAL BRAIN CT WITHOUT CONTRAST. EVIDENCE OF ACUTE STROKE: NO. COMMENT: Quality ID # [id number]: Final reports with documentation of one or more dose reduction techniques (e.g., Automated exposure control, adjustment of the mA and/or kV according to patient size, use of iterative reconstruction technique) TECHNICAL DOCUMENTATION: JOB ID: [id number] [employer]- All Rights Reserved Reading location - IP/workstation name: [email or web address]
--- NOTE | 2019-05-09 16:46 | RADIOLOGY REPORT (SQ) ---
EXAM DESCRIPTION: CT CERVICAL SPINE WITHOUT COMPLETED DATE/TIME: 05/09/2019 4:24 pm REASON FOR STUDY: fall COMPARISON: CT brain same date TECHNIQUE: Axial images acquired through the cervical spine without intravenous contrast. Images re viewed with lung, soft tissue and bone windows. Reconstructed coronal and sagittal MPR images review ed. Images stored on PACS. All CT scanners at this facility use dose modulation, iterative reconstruction, and/or weight based d osing when appropriate to reduce radiation dose to as low as reasonably achievable (ALARA). [facility]: Dose Right [facility]: CareDose [facility]: Dose Right [facility]: Teradose 4D [facility]: Pryv RADIATION DOSE: CT Rad equipment meets quality standard of care and radiation dose reduction techniq ues were employed. CTDIvol: 19.4 mGy. DLP: 393 mGy-cm. mGy. LIMITATIONS: None. FINDINGS: ALIGNMENT: Anatomic. MINERALIZATION: Normal. VERTEBRAL BODIES: No fractures or dislocation. DISCS: Multilevel disc space narrowing with osteophytes. FACETS, LATERAL MASSES, POSTERIOR ELEMENTS: Facet arthropathy. No fractures. No dislocation. No ac emmonak findings. HARDWARE: None in the spine. VISUALIZED RIBS: No fractures. LUNG APICES AND SOFT TISSUES: Biapical pleuroparenchymal scarring is present. There are increased in terstitial markings at the lung apices, question chronic pulmonary fibrosis OTHER: No other significant finding. IMPRESSION: CHRONIC DEGENERATIVE CHANGES. NO ACUTE FINDINGS. TECHNICAL DOCUMENTATION: JOB ID: [id number] Quality ID # [id number]: Final reports with documentation of one or more dose reduction techniques (e.g., Au tomated exposure control, adjustment of the mA and/or kV according to patient size, use of iterative reconstruction technique) 2010 [employer]- All Rights Reserved Reading location - IP/workstation name: [email or web address]
--- NOTE | 2019-05-09 16:56 | RADIOLOGY REPORT (SQ) ---
EXAM DESCRIPTION: WRIST LEFT 3 VIEWS COMPLETED DATE/TIME: 05/09/2019 4:40 pm REASON FOR STUDY: fall COMPARISON: None. NUMBER OF VIEWS: Three views. TECHNIQUE: AP, lateral, and oblique radiographic images acquired of the left wrist. LIMITATIONS: None. FINDINGS: MINERALIZATION: Normal. BONES: No acute fracture or dislocation. Degenerative changes at the 1st carpometacarpal joint. No worrisome bone lesions. Normal alignment. SOFT TISSUES: No soft tissue swelling. No foreign body. OTHER: No other significant finding. IMPRESSION: NEGATIVE STUDY OF THE LEFT WRIST. NO RADIOGRAPHIC EVIDENCE OF ACUTE INJURY. TECHNICAL DOCUMENTATION: JOB ID: [id number] [email or web address]- All Rights Reserved Reading location - IP/workstation name: [email or web address]
--- NOTE | 2019-05-09 16:57 | RADIOLOGY REPORT (SQ) ---
EXAM DESCRIPTION: HUMERUS LEFT COMPLETED DATE/TIME: 05/09/2019 4:40 pm REASON FOR STUDY: fall COMPARISON: None. NUMBER OF VIEWS: Two views. TECHNIQUE: Two radiographic images were acquired of the left humerus to include elbow and shoulder i n at least one projection. LIMITATIONS: None. FINDINGS: MINERALIZATION: Normal. BONES: Displaced oblique fracture of the midshaft of the humerus. SOFT TISSUES: No obvious swelling or foreign body. OTHER: No other significant finding. IMPRESSION: DISPLACED OBLIQUE FRACTURE OF THE MIDSHAFT OF THE HUMERUS. TECHNICAL DOCUMENTATION: JOB ID: [id number] [employer] All Rights Reserved Reading location - IP/workstation name: [email or web address] [id number]
[2019-05-09 18:24] LABS: ABSOLUTE BASOPHILS # (AUTO) 0.1 10^3/uL (0.0-0.2); ABSOLUTE LYMPHOCYTES (AUTO) 1.5 10^3/uL (0.5-4.7); ABSOLUTE NEUT (AUTO) 12.5 10^3/uL (1.7-8.2); BASOPHILS % (AUTO) 0.4 % (0-2); EOSINOPHILS % (AUTO) 0.3 % (0-6); HEMATOCRIT 40.7 % (36.0-47.0); HEMOGLOBIN 13.6 g/dL (12.0-15.5); MEAN CORPUSCULAR HEMOGLOBIN 29.3 pg (27.0-33.4); MEAN CORPUSCULAR HGB CONC 33.4 g/dL (32.0-36.0); MEAN CORPUSCULAR VOLUME 88 fl (80-97); MONOCYTES % (AUTO) 6.8 % (3-13); PLATELET COUNT 229 10^3/uL (150-450); RED BLOOD COUNT 4.64 10^6/uL (3.72-5.28); RED CELL DISTRIBUTION WIDTH 13.6 % (11.5-14.0); SEGMENTED NEUTROPHILS % (AUTO) 82.5 % (42-78); TOTAL CELLS COUNTED % (AUTO) 100 %; WHITE BLOOD COUNT 15.1 10^3/uL (4.0-10.5)
--- NOTE | 2019-05-09 18:45 | PDOC H&P ---
History of Present Illness Admission Date/PCP: NARESH PERALES MD History of Present Illness: DEVANG CORONEL is a 84 year old female with a history of dementia who lives alone but apparently is only alone for 2 to 3 hours out of the day. 1 of her daughters had only just arrived the patient suffered a mechanical fall. She was walking from one room into her living room and stumbled and fell, and her left arm outstretched to the recliner trying to catch herself. In doing so, her arm came between her in the chair as she went down to the floor. Her daughter said that her left arm was twisted in a strange angle the patient was in obvious pain. She was put in a splint by EMS and brought to the ER. The EMS report sheet from the ER said that her vital signs were stable with a systolic heart rate in the mid 100s and a heart rate in the 80s and SPO2 in the 90s on room air. CT of the head of the cervical spine were both negative, and x-rays of the wrist were negative, but there was a humerus x-ray with a midshaft oblique fracture that was minimally displaced. Orthopedics was consulted and requested that she be kept overnight for observation. Past Medical History Cardiac Medical History: Reports: Atrial Fibrillation, Coronary Artery Disease, Hyperlipidema, Hypertension Pulmonary Medical History: Reports: Chronic Obstructive Pulmonary Disease (COPD) Endocrine Medical History: Reports: Diabetes Mellitus Type 2 GI Medical History: Reports: Gastroesophageal Reflux Disease Past Surgical History Past Surgical History: Reports: Cholecystectomy, Hysterectomy Social History Smoking Status: Unknown if Ever Smoked Frequency of Alcohol Use: None Hx Recreational Drug Use: No Drugs: None Hx Prescription Drug Abuse: No Family History Family History: Reviewed & Not Pertinent Parental Family History Reviewed: Yes Children Family History Reviewed: Yes Sibling(s) Family History Reviewed.: Yes Medication/Allergy Home Medications: Aspirin [Ecotrin 81 mg EC Tablet] 81 mg PO DAILY 05/09/19 Atorvastatin Calcium [Lipitor 20 mg Tablet] 20 mg PO QHS 05/09/19 Diltiazem HCl [Cardizem 60 mg Tablet] 60 mg PO Q12 05/09/19 Ergocalciferol (Vitamin D2) [Vitamin D2] 50,000 unit PO WE@1000 05/09/19 Furosemide [Lasix 20 mg Tablet] 20 mg PO QAM 05/09/19 Levothyroxine Sodium [Synthroid] 125 mcg PO DAILY 05/09/19 Metformin HCl [Glucophage 500 mg Tablet] 500 mg PO QHS 05/09/19 Metoprolol Tartrate [Lopressor 25 mg Tablet] 25 mg PO Q12 05/09/19 Multivitamin [One-A-Day Essential] 1 tab PO DAILY 05/09/19 Omeprazole 20 mg PO DAILY 05/09/19 Potassium Chloride [Klor-Con M10] 10 meq PO BID 05/09/19 Rivastigmine [Exelon 4.6 Mg/24 Hr Transdermal Patch] 1 each TD DAILY 05/09/19 Ropinirole HCl [Requip 0.25 Mg Tablet] 0.25 mg PO QHS 05/09/19 Warfarin Sodium [Coumadin 5 mg Tablet] 5 mg PO QHS 05/09/19 Allergies/Adverse Reactions: [place] And Derivatives Allergy (Unknown, Verified 07/28/18 13:19) meperidine HCl [From Demerol] Allergy (Unknown, Verified 07/28/18 13:19) Sulfa (Sulfonamide Antibiotics) Allergy (Unknown, Verified 07/28/18 13:19) morphine [Morphine] Adverse Reaction (Intermediate, Verified 07/28/18 13:19) Vomiting amoxicillin trihydrate [From Augmentin] Adverse Reaction (Unknown, Verified 07/28/18 13:19) Potassium Clavulanate * [From Augmentin] Adverse Reaction (Unknown, Verified 07/28/18 13:19) Review of Systems ROS unobtainable: Due to mental status Physical Exam General appearance: PRESENT: no acute distress, cooperative, disheveled Head exam: PRESENT: atraumatic, normocephalic Eye exam: PRESENT: EOMI. ABSENT: conjunctival injection, nystagmus, PERRLA Ear exam: PRESENT: normal external ear exam Mouth exam: PRESENT: moist, neck supple Throat exam: ABSENT: post pharyngeal erythema Neck exam: PRESENT: full ROM. ABSENT: carotid bruit, JVD, lymphadenopathy, meningismus, tenderness, thyromegaly Respiratory exam: PRESENT: clear to auscultation bianca, symmetrical. ABSENT: accessory muscle use, chest wall tenderness, crackles, prolonged expiratory phas, rhonchi, tachypnea, wheezes Cardiovascular exam: PRESENT: irregular rhythm. ABSENT: bradycardia, tachycardia Pulses: PRESENT: normal radial pulses Vascular exam: PRESENT: normal capillary refill GI/Abdominal exam: PRESENT: normal bowel sounds, soft. ABSENT: distended, guarding, rebound, tenderness Extremities exam: ABSENT: clubbing, pedal edema Musculoskeletal exam: PRESENT: deformity - Left upper arm was obviously swollen and was tender to the touch Neurological exam: PRESENT: alert, awake, oriented to person, CN II-XII grossly intact. ABSENT: motor sensory deficit Psychiatric exam: PRESENT: appropriate affect Skin exam: PRESENT: dry, warm Results Laboratory Results: 05/09/19 18:00 05/09/19 18:00 WBC 15.1 H RBC 4.64 Hgb 13.6 Hct 40.7 MCV 88 MCH 29.3 MCHC 33.4 RDW 13.6 Plt Count 229 Seg Neutrophils % 82.5 H Impressions: Head CT 05/09/19 15:47 IMPRESSION: NORMAL BRAIN CT WITHOUT CONTRAST. EVIDENCE OF ACUTE STROKE: NO. Cervical Spine CT 05/09/19 15:48 IMPRESSION: CHRONIC DEGENERATIVE CHANGES. NO ACUTE FINDINGS. Humerus X-Ray 05/09/19 16:08 IMPRESSION: DISPLACED OBLIQUE FRACTURE OF THE MIDSHAFT OF THE HUMERUS. Wrist X-Ray 05/09/19 16:08 IMPRESSION: NEGATIVE STUDY OF THE LEFT WRIST. NO RADIOGRAPHIC EVIDENCE OF ACUTE INJURY. Assessment and Plan - Diagnosis (1) Fracture of shaft of left humerus Qualifiers: Encounter type: initial encounter Fracture type: closed Fracture morpho logy: oblique Fracture alignment: displaced Qualified Code(s): S42.332A - Displaced oblique fracture of shaft of humerus, left arm, initial encounter for closed fracture Is this a current diagnosis for this admission?: Yes Plan: I have requested that she be placed in a proximal sugar tong splint with a collar and cuff sling to immobilize the arm. Pain control. Waiting orthopedics consultation. We will have her seen by physical therapy and Occupational Therapy. (2) Atrial fibrillation Qualifiers: Atrial fibrillation type: unspecified chronic Is this a current diagnosis for this admission?: Yes Plan: We will continue her metoprolol and Cardizem, as well as her warfarin for anticoagulation. We will check her INR. (3) CAD (coronary artery disease) Qualifiers: Coronary Disease-Associated Artery/Lesion type: [place] artery [place] vs. transplanted heart: [place] heart Associated angina: with angina and documented spasm Qualified Code(s): I25.111 - Atherosclerotic heart disease of [place] coronary artery with angina pectoris with documented spasm Is this a current diagnosis for this admission?: Yes Plan: We will continue her home medications (4) COPD (chronic obstructive pulmonary disease) Qualifiers: COPD type: emphysema Emphysema type: unspecified Qualified Code(s): J43.9 - Emphysema, unspecified Is this a current diagnosis for this admission?: Yes Plan: Not acutely exacerbated, will continue home medications (5) Dementia Qualifiers: Dementia type: unspecified type Is this a current diagnosis for this admission?: Yes Plan: She is on Namenda which we will continue (6) Type 2 diabetes mellitus Qualifiers: Diabetes mellitus chcf insulin use: without terminal manager use Diabetes mellitus complication status: without complication Qualified Code(s): E11.9 - Type 2 diabetes mellitus without complications Is this a current diagnosis for this admission?: Yes Plan: She is on metformin at home. We will supplement that with a sliding scale here. Consistent carbohydrate diet. - Time Time Spent with patient: 35 or more minutes
[2019-05-09 18:46] LABS: ANION GAP 13 (5-19); BLOOD UREA NITROGEN 15 mg/dL (7-20); CALCIUM 9.3 mg/dL (8.4-10.2); CARBON DIOXIDE 23 mmol/L (22-30); CHLORIDE 106 mmol/L (98-107); GLUCOSE 167 mg/dL (75-110); POTASSIUM 4.3 mmol/L (3.6-5.0)
[2019-05-09] MEDS: ATORVASTATIN CALCIUM 20 MG TABLET PO SCH (21:16)
[2019-05-09] MEDS: DILTIAZEM HCL 60 MG TABLET PO SCH (21:16)
[2019-05-09] MEDS: METFORMIN HCL 500 MG TABLET PO SCH (21:17)
[2019-05-09] MEDS: METOPROLOL TARTRATE 25 MG TABLET PO SCH (21:17)
[2019-05-09] MEDS ORDERED: (PENDING PHARMACY ID) (Warfarin Sodium 5 MG) PO SCH (22:00)
[2019-05-09] MEDS: ROPINIROLE HCL 0.25 MG TABLET PO SCH (22:21)
[2019-05-09] MEDS ORDERED: WARFARIN SODIUM 5 MG TABLET PO ONE (23:00)
--- NOTE | 2019-05-09 23:54 | EKG REPORT ---
SEVERITY:- ABNORMAL ECG - ATRIAL FIBRILLATION BORDERLINE RIGHT AXIS DEVIATION DIFFUSE NONSPECIFIC ST-T CHANGES : Confirmed by: Rome Mott MD 09-May-2019 23:54:09
[2019-05-10] MEDS: LEVOTHYROXINE SODIUM 0.025 MG TABLET PO SCH (05:57)
[2019-05-10] MEDS: PANTOPRAZOLE SODIUM 20 MG TABLET.DR PO SCH (05:57)
[2019-05-10] MEDS: LEVOTHYROXINE SODIUM 0.1 MG TABLET PO SCH (05:57)
[2019-05-10] MEDS: OXYCODONE-ACETAMINOPHEN 5-325 MG TABLET PO PRN ×3 (07:02→17:59)
--- NOTE | 2019-05-10 09:19 | PDOC CONSULTATION ---
Consultation Consult Date: 05/10/19 Attending physician:: MATTIE KEITH Provider Consulted: [facility] Consult reason:: Displaced, closed fracture left humerus History of Present Illness Admission Date/PCP: 05/09/19 19:17 NARESH PERALES MD Patient complains of: Left humerus fracture History of Present Illness: DEVANG CORONEL is a 84 year old female who sustained a mechanical fall at home last evening resulting in a displaced, closed fracture of the left humeral shaft. The patient is ambulatory at home with a cane. The emergency room physician indicated that the family did not think she would be able to care for herself with the fracture. The patient was admitted for fracture care and interim placement. The patient has a history of atrial fibrillation and is on Coumadin. Prothrombin time and INR has not yet been obtained. Past Medical History Cardiac Medical History: Reports: Atrial Fibrillation, Coronary Artery Disease, Hyperlipidema, Hypertension Pulmonary Medical History: Reports: Chronic Obstructive Pulmonary Disease (COPD) Endocrine Medical History: Reports: Diabetes Mellitus Type 2 GI Medical History: Reports: Gastroesophageal Reflux Disease Psychiatric Medical History: Denies: Depression Past Surgical History Past Surgical History: Reports: Cholecystectomy, Hysterectomy Social History Lives with: Alone Smoking Status: Never Smoker Frequency of Alcohol Use: None Hx Recreational Drug Use: No Drugs: None Hx Prescription Drug Abuse: No - Advance Directive Resuscitation Status: Do Not Resuscitate Family History Family History: Reviewed & Not Pertinent Parental Family History Reviewed: Yes Children Family History Reviewed: No Sibling(s) Family History Reviewed.: Yes Medication/Allergy Home Medications: Aspirin [Ecotrin 81 mg EC Tablet] 81 mg PO DAILY 05/09/19 Atorvastatin Calcium [Lipitor 20 mg Tablet] 20 mg PO QHS 05/09/19 Diltiazem HCl [Cardizem 60 mg Tablet] 60 mg PO Q12 05/09/19 Ergocalciferol (Vitamin D2) [Vitamin D2] 50,000 unit PO WE@1000 05/09/19 Furosemide [Lasix 20 mg Tablet] 20 mg PO QAM 05/09/19 Levothyroxine Sodium [Synthroid] 125 mcg PO DAILY 05/09/19 Metformin HCl [Glucophage 500 mg Tablet] 500 mg PO QHS 05/09/19 Metoprolol Tartrate [Lopressor 25 mg Tablet] 25 mg PO Q12 05/09/19 Multivitamin [One-A-Day Essential] 1 tab PO DAILY 05/09/19 Omeprazole 20 mg PO DAILY 05/09/19 Potassium Chloride [Klor-Con M10] 10 meq PO BID 05/09/19 Rivastigmine [Exelon 4.6 Mg/24 Hr Transdermal Patch] 1 each TD DAILY 05/09/19 Ropinirole HCl [Requip 0.25 Mg Tablet] 0.25 mg PO QHS 05/09/19 Warfarin Sodium [Coumadin 5 mg Tablet] 5 mg PO QHS 05/09/19 Allergies/Adverse Reactions: [place] And Derivatives Allergy (Unknown, Verified 07/28/18 13:19) meperidine HCl [From Demerol] Allergy (Unknown, Verified 07/28/18 13:19) Sulfa (Sulfonamide Antibiotics) Allergy (Unknown, Verified 07/28/18 13:19) morphine [Morphine] Adverse Reaction (Intermediate, Verified 07/28/18 13:19) Vomiting amoxicillin trihydrate [From Augmentin] Adverse Reaction (Unknown, Verified 07/28/18 13:19) Potassium Clavulanate * [From Augmentin] Adverse Reaction (Unknown, Verified 07/28/18 13:19) Review of Systems Constitutional: ABSENT: chills, fever(s), headache(s), weight gain, weight loss Eyes: ABSENT: as per HPI, visual disturbances, other Cardiovascular: ABSENT: chest pain, dyspnea on exertion, edema, orthropnea, palpitations Musculoskeletal: ABSENT: joint swelling Neurological: ABSENT: as per HPI, abnormal gait, abnormal movements, abnormal speech, confusion, convulsions, dizziness, focal weakness, frequent falls, lack of coordination, memory loss, numbness, paresthesias, restless legs, syncope, tingling, tremor(s), vertigo, weakness, other Endocrine: ABSENT: as per HPI, cold intolerance, flushing, heat intolerance, menstrual abnormalities, polydipsia, polyphagia, polyuria, other Hematologic/Lymphatic: ABSENT: easy bleeding, easy bruising Physical Exam Vital Signs: Temp Pulse Resp BP Pulse Ox 98.1 F 72 19 149/77 H 93 05/10/19 07:19 05/10/19 07:19 05/10/19 07:19 05/10/19 07:19 05/10/19 07:19 Intake & Output 05/09/19 05/10/19 05/11/19 06:59 06:59 06:59 Intake Total 400 Balance 400 Weight 73.2 kg General appearance: PRESENT: no acute distress Head exam: PRESENT: atraumatic Eye exam: PRESENT: EOMI Ear exam: PRESENT: normal external ear exam Mouth exam: PRESENT: neck supple Neck exam: PRESENT: full ROM Respiratory exam: PRESENT: clear to auscultation bianca. ABSENT: rales, rhonchi, wheezes Cardiovascular exam: PRESENT: irregular rhythm GI/Abdominal exam: PRESENT: normal bowel sounds, soft. ABSENT: distended, guarding, mass, organolmegaly, rebound, tenderness Rectal exam: PRESENT: deferred Extremities exam: PRESENT: other - The left upper extremity is splinted. The patient is able to extend her wrist, digits, and thumb. Sensation is intact to touch. 2+ radial and ulnar pulses. Neurological exam: PRESENT: alert Psychiatric exam: PRESENT: appropriate affect, normal mood. ABSENT: homicidal ideation, suicidal ideation Results Laboratory Results: 05/09/19 18:00 05/09/19 18:00 05/09/19 05/09/19 18:00 18:00 WBC 15.1 H RBC 4.64 Hgb 13.6 Hct 40.7 MCV 88 MCH 29.3 MCHC 33.4 RDW 13.6 Plt Count 229 Seg Neutrophils % 82.5 H Sodium 142.1 Potassium 4.3 Chloride 106 Carbon Dioxide 23 Anion Gap 13 BUN 15 Creatinine 0.80 Est GFR ( Amer) > 60 Glucose 167 H Calcium 9.3 Impressions: Head CT 05/09/19 15:47 IMPRESSION: NORMAL BRAIN CT WITHOUT CONTRAST. EVIDENCE OF ACUTE STROKE: NO. Cervical Spine CT 05/09/19 15:48 IMPRESSION: CHRONIC DEGENERATIVE CHANGES. NO ACUTE FINDINGS. Humerus X-Ray 05/09/19 16:08 IMPRESSION: DISPLACED OBLIQUE FRACTURE OF THE MIDSHAFT OF THE HUMERUS. Wrist X-Ray 05/09/19 16:08 IMPRESSION: NEGATIVE STUDY OF THE LEFT WRIST. NO RADIOGRAPHIC EVIDENCE OF ACUTE INJURY. Assessment & Plan - Diagnosis (1) Closed left humeral fracture Qualifiers: Encounter type: initial encounter Humerus Location: shaft Fracture morphology: oblique Fracture alignment: displaced Qualified Code(s): S42.332A - Displaced oblique fracture of shaft of humerus, left arm, initial encounter for closed fracture - Time Time Spent: 30 to 50 Minutes - Plan Summary Plan Summary: The patient sustained a low-energy mechanical fall at home last evening resulting in a displaced, closed fracture of the left humeral shaft. Treatment options include nonoperative treatment with a Mar functional brace for the humerus versus operative treatment with open reduction and internal fixation. The patient is on Coumadin for atrial fibrillation. I have ordered a PT with INR to assess her anticoagulation status. Given her multiple medical problems, I would suggest an initial trial of nonoperative treatment with a functional brace. I have placed an order for this brace on the patient's chart. I will return later today to discuss treatment options in full with the family as well as with the patient. The patient had indicated that she is ambulatory with the use of a cane. If the patient proves unable to ambulate due to the lack of use of her left arm, this would be an indication to pursue operative management. Nonoperative treatment I would see the patient 2 weeks following discharge in my office to obtain radiographs of the left humerus to assess fracture alignment.
[2019-05-10] MEDS: RIVASTIGMINE 4.6 MG/24 HR PATCH.TD24 TD SCH (09:21)
[2019-05-10] MEDS: POTASSIUM CHLORIDE 10 MEQ CAPSULE.ER PO SCH ×2 (09:22→17:52)
[2019-05-10] MEDS: DILTIAZEM HCL 60 MG TABLET PO SCH ×2 (09:23→23:14)
[2019-05-10] MEDS: MULTIVITAMIN TABLET PO SCH (09:23)
[2019-05-10] MEDS: FUROSEMIDE 20 MG TABLET PO SCH (09:23)
[2019-05-10] MEDS: METOPROLOL TARTRATE 25 MG TABLET PO SCH ×2 (09:23→23:14)
[2019-05-10] MEDS ORDERED: (PENDING PHARMACY ID) (Potassium Chloride [Klor-Con M10] 10 MEQ) PO SCH (10:00)
[2019-05-10] MEDS ORDERED: (PENDING PHARMACY ID) (Levothyroxine Sodium [Synthroid] 125 MCG) PO SCH (10:00)
[2019-05-10 10:51] LABS: HEMATOCRIT 37.5 % (36.0-47.0); HEMOGLOBIN 12.6 g/dL (12.0-15.5); MEAN CORPUSCULAR HEMOGLOBIN 29.4 pg (27.0-33.4); MEAN CORPUSCULAR HGB CONC 33.7 g/dL (32.0-36.0); MEAN CORPUSCULAR VOLUME 87 fl (80-97); PLATELET COUNT 231 10^3/uL (150-450); RED CELL DISTRIBUTION WIDTH 13.7 % (11.5-14.0)
[2019-05-10 10:55] LABS: INTERNATIONAL RATION (INR) 2.56
[2019-05-10 11:15] LABS: ANION GAP 9 (5-19); BLOOD UREA NITROGEN 13 mg/dL (7-20); CALCIUM 9.1 mg/dL (8.4-10.2); CARBON DIOXIDE 27 mmol/L (22-30); CHLORIDE 103 mmol/L (98-107); GLUCOSE 99 mg/dL (75-110); POTASSIUM 4.1 mmol/L (3.6-5.0)
[2019-05-10] MEDS ORDERED: ONDANSETRON HCL INJ/PF 4 MG/2 ML SDV IV PRN (11:29)
--- NOTE | 2019-05-10 13:58 | Physician Advisory Note ---
Physician Advisor ProgressNote .: [facility] medical [facility] for this patient. Physician Advisor Statement: Review r.e. status. (Pt initial status appropriately Obs for humeral fx.) Points noted from chart include: 84yo pt w/CAD/Afib w/chronic anticoag using warfarin, HTN/HLD/COPD/DM-2 and dementia, living alone prior to arrival w/supervision not available 09/01, using a cane to ambulate at baseline, Rt-hand dominant. - Surgeon rec's trial of bracing if tayo'd, but if pt unable to ambulate due to lack of use of Lt arm, this = indication for surgery. - INR 2.56, & received last dose coumadin 5mg last pm, 05/09. - OT eval: pt needs max assist w/BLE dressing, pt dependent r.e. toileting, & needing cont'd ADL training and improved safety w/functional transfers. - PT eval pending. - Initial O2 sat 81% on RA (P/F ratio 214). Subseq. O2 sats as low as 90% RA (=P/F ratio 286), 93% on 1L O2 (=P/F ratio 288). Attending, please clarify in documentation: 1. R.e. O2 sats: Does pt have "Acute Hypoxemic Resp Failure due to ___ [fentanyl? Percocet? ...], pt's baseline O2 sats are ___ on RA" or "Chronic Hypoxemic Resp Failure due to __" [COPD? How much O2 does she usually need?], or "no resp failure; abnormal O2 sats are documented in error", or ...? 2. Clinical reasons each day why pt still requires hospital level care/monitoring rather than care home care only - needing to adjust & monitor warfarin/INR/bleeding/anemia pre & post-op? - concern about resp status being different from baseline [if applicable]? - pt developing new [complication/acute clinical issue, such as ac syst/diast CHF, PNA of likely __ type, ___ type encephalopathy, or edema concerning for compartment synd, ....]" *If pt has a 2nd acute clinical issue besides the fx, or needs surgery after reversal of anticoag, or other issue acutely concerning clinically, which requires continued hospital level care/monitoring, then it may be appropriate to consider change to Inpt status. 3. If pt's Hgb continues to drop to <12, please state whether the resulting anemia is: due to acute blood loss due to fx?, or due to chronic ? [ ___ defic, or ?] or an artifact only, or ...? Thanks! CK
--- NOTE | 2019-05-10 15:18 | PDOC PROGRESS REPORT ---
Subjective Progress Note for:: 05/10/19 Subjective:: No adverse events overnight. Patient has been intermittently hypoxemic overnight and has required oxygen. She is not complaining of any cough or shortness of breath. No chest pain. She is apprehensive of anyone touching her left arm. Oral intake has been poor. Reason For Visit: LEFT MIDSHAFT OBLIQUE HUMERUS FRACTURE Physical Exam Vital Signs: Temp Pulse Resp BP Pulse Ox 97.3 F 73 19 129/61 H 94 05/10/19 14:00 05/10/19 14:00 05/10/19 14:00 05/10/19 14:00 05/10/19 14:00 Intake & Output 05/09/19 05/10/19 05/11/19 06:59 06:59 06:59 Intake Total 400 120 Balance 400 120 Weight 73.2 kg General appearance: PRESENT: no acute distress, cooperative, disheveled Respiratory exam: PRESENT: clear to auscultation bianca, decreased breath sounds, symmetrical, unlabored. ABSENT: accessory muscle use, chest wall tenderness, prolonged expiratory phas, rhonchi, tachypnea, wheezes Cardiovascular exam: PRESENT: irregular rhythm Pulses: PRESENT: normal radial pulses Vascular exam: PRESENT: normal capillary refill GI/Abdominal exam: PRESENT: normal bowel sounds, soft. ABSENT: distended, guarding, rebound, tenderness Extremities exam: ABSENT: clubbing, pedal edema Musculoskeletal exam: PRESENT: other - Her left upper extremity is in a splint to fully immobilize his arm from the shoulder down Neurological exam: PRESENT: awake, oriented to person Psychiatric exam: PRESENT: flat affect Skin exam: PRESENT: dry, warm Results Laboratory Results: 05/10/19 09:37 05/10/19 09:37 05/09/19 05/09/19 05/10/19 18:00 18:00 09:37 WBC 15.1 H 10.0 RBC 4.64 4.30 Hgb 13.6 12.6 Hct 40.7 37.5 MCV 88 87 MCH 29.3 29.4 MCHC 33.4 33.7 RDW 13.6 13.7 Plt Count 229 231 Seg Neutrophils % 82.5 H Sodium 142.1 Potassium 4.3 Chloride 106 Carbon Dioxide 23 Anion Gap 13 BUN 15 Creatinine 0.80 Est GFR ( Amer) > 60 Glucose 167 H Calcium 9.3 05/10/19 09:37 WBC RBC Hgb Hct MCV MCH MCHC RDW Plt Count Seg Neutrophils % Sodium 139.4 Potassium 4.1 Chloride 103 Carbon Dioxide 27 Anion Gap 9 BUN 13 Creatinine 0.85 Est GFR ( Amer) > 60 Glucose 99 Calcium 9.1 Impressions: Head CT 05/09/19 15:47 IMPRESSION: NORMAL BRAIN CT WITHOUT CONTRAST. EVIDENCE OF ACUTE STROKE: NO. Cervical Spine CT 05/09/19 15:48 IMPRESSION: CHRONIC DEGENERATIVE CHANGES. NO ACUTE FINDINGS. Humerus X-Ray 05/09/19 16:08 IMPRESSION: DISPLACED OBLIQUE FRACTURE OF THE MIDSHAFT OF THE HUMERUS. Wrist X-Ray 05/09/19 16:08 IMPRESSION: NEGATIVE STUDY OF THE LEFT WRIST. NO RADIOGRAPHIC EVIDENCE OF ACUTE INJURY. Assessment and Plan - Diagnosis (1) Fracture of shaft of left humerus Qualifiers: Encounter type: initial encounter Fracture type: closed Fracture morphology: oblique Fracture alignment: displaced Qualified Code(s): S42.332A - Displaced oblique fracture of shaft of humerus, left arm, initial encounter for closed fracture Is this a current diagnosis for this admission?: Yes Plan: I asked for a proximal sugar tong splint with a collar and cuff sling but her entire upper extremity is immobilized from the shoulder down, and as long as she does not try to move the arm this should suffice until we get her Mar splint in place. I spoke with Dr. Stewart who is recommending nonsurgical treatment at this time with outpatient surveillance with the possibility of surgery if she is not displaying good healing. (2) Atrial fibrillation Qualifiers: Atrial fibrillation type: unspecified chronic Qualified Code(s): I48.20 - Chronic atrial fibrillation, unspecified; I48.2 - Chronic atrial fibrillation Is this a current diagnosis for this admission?: Yes Plan: We will continue her metoprolol and Cardizem, as well as her warfarin for anticoagulation. We will check her INR. (3) CAD (coronary artery disease) Qualifiers: Coronary Disease-Associated Artery/Lesion type: [place] artery [place] vs. transplanted heart: [place] heart Associated angina: with angina and documented spasm Qualified Code(s): I25.111 - Atherosclerotic heart disease of [place] coronary artery with angina pectoris with documented spasm Is this a current diagnosis for this admission?: Yes Plan: We will continue her home medications (4) COPD (chronic obstructive pulmonary disease) Qualifiers: COPD type: emphysema Emphysema type: unspecified Qualified Code(s): J43.9 - Emphysema, unspecified Is this a current diagnosis for this admission?: Yes Plan: Not acutely exacerbated. She is hypoxemic but is not displaying symptoms of it. (5) Dementia Qualifiers: Dementia type: unspecified type Is this a current diagnosis for this admission?: Yes Plan: She is on Namenda which we will continue (6) Type 2 diabetes mellitus Qualifiers: Diabetes mellitus long-term insulin use: without terminal operations manager use Diabetes mellitus complication status: without complication Qualified Code(s): E11.9 - Type 2 diabetes mellitus without complications Is this a current diagnosis for this admission?: Yes Plan: She is on metformin at home. We will supplement that with a sliding scale here. Consistent carbohydrate diet. (7) Hypoxia Is this a current diagnosis for this admission?: Yes Plan: Her SPO2 when she came in was 81% and she is been on oxygen since then. I am not aware of her being on oxygen at home. She is not wheezing and she has no adventitious breath sounds. She has no respiratory symptoms at all. Previous chest x-ray has been noted that she had findings consistent with COPD but she does not seem acutely exacerbated at this time. I have to assume that this is an acute respiratory failure with hypoxia from a cause that is undetermined as of yet. We will continue with oxygen support to maintain SPO2 greater than 90%. - Time Time Spent with patient: 15-24 minutes - Inpatient Certification Based on my medical assessment, after consideration of the patient's comorbidities, presenting symptoms, or acuity I expect that the services needed warrant INPATIENT care.: Yes I certify that my determination is in accordance with my understanding of Medicare's requirements for reasonable and necessary INPATIENT services [42 CFR 412.3e].: Yes Medical Necessity: Need Close Monitoring Due to Risk of Patient Decompensation, Risk of Complication if Not Cared For in Hospital, Risk of Diagnosis Which Will Require Inpatient Eval/Care/Monitoring
[2019-05-10 19:27] LABS: APPEARANCE,URINE TURBID; BILIRUBIN,URINE NEGATIVE (NEGATIVE); COLOR,URINE AMBER; GLUCOSE, URINE NEGATIVE (NEGATIVE); KETONES,URINE NEGATIVE (NEGATIVE); LEUKOCYTE ESTERASE,URINE NEGATIVE (NEGATIVE); NITRITE,URINE NEGATIVE (NEGATIVE); PROTEIN,URINE NEGATIVE (NEGATIVE); URINE SPECIFIC GRAVITY 1.025; UROBILINOGEN,URINE NEGATIVE mg/dL (<2.0)
[2019-05-10] MEDS ORDERED: WARFARIN SODIUM 5 MG TABLET PO SCH (22:00)
[2019-05-10] MEDS: METFORMIN HCL 500 MG TABLET PO SCH (23:14)
[2019-05-10] MEDS: ROPINIROLE HCL 0.25 MG TABLET PO SCH (23:14)
[2019-05-10] MEDS: ATORVASTATIN CALCIUM 20 MG TABLET PO SCH (23:14)
[2019-05-11] MEDS: LEVOTHYROXINE SODIUM 0.1 MG TABLET PO SCH (05:54)
[2019-05-11] MEDS: LEVOTHYROXINE SODIUM 0.025 MG TABLET PO SCH (05:54)
[2019-05-11] MEDS: PANTOPRAZOLE SODIUM 20 MG TABLET.DR PO SCH (05:54)
[2019-05-11 06:07] LABS: INTERNATIONAL RATION (INR) 2.92; PROTHROMBIN TIME 31.1 SEC (11.4-15.4)
[2019-05-11] MEDS: FUROSEMIDE 20 MG TABLET PO SCH (09:59)
[2019-05-11] MEDS: MULTIVITAMIN TABLET PO SCH (09:59)
[2019-05-11] MEDS: OXYCODONE-ACETAMINOPHEN 5-325 MG TABLET PO PRN (09:59)
[2019-05-11] MEDS: METOPROLOL TARTRATE 25 MG TABLET PO SCH (09:59)
[2019-05-11] MEDS: POTASSIUM CHLORIDE 10 MEQ CAPSULE.ER PO SCH ×2 (09:59→17:46)
[2019-05-11] MEDS: DILTIAZEM HCL 60 MG TABLET PO SCH (10:00)
[2019-05-11] MEDS: RIVASTIGMINE 4.6 MG/24 HR PATCH.TD24 TD SCH (13:11)
[2019-05-11] MEDS: METOPROLOL SUCCINATE 25 MG TAB.SR.24H PO SCH ×2 (13:11→21:45)
[2019-05-11] MEDS: HYDROCODONE/ACETAMINOPHEN 5-325 MG TABLET PO PRN (15:59)
--- NOTE | 2019-05-11 16:36 | PDOC PROGRESS REPORT ---
Subjective Progress Note for:: 05/11/19 Subjective:: No adverse events overnight. Pain is been well controlled, but her family feels like the pain medicine sedates her a little too much. She also was complaining of some pain to palpation on the left lateral rib cage. Reason For Visit: LEFT MIDSHAFT OBLIQUE HUMERUS FRACTURE Physical Exam Vital Signs: Temp Pulse Resp BP Pulse Ox 98.1 F 73 17 113/60 94 05/11/19 11:31 05/11/19 11:31 05/11/19 11:31 05/11/19 11:31 05/11/19 11:31 Intake & Output 05/10/19 05/11/19 05/12/19 06:59 06:59 06:59 Intake Total 400 240 Balance 400 240 Weight 73.2 kg 72.9 kg General appearance: PRESENT: no acute distress, cooperative, disheveled Respiratory exam: PRESENT: clear to auscultation bianca, decreased breath sounds, symmetrical, unlabored, chest wall tenderness. ABSENT: accessory muscle use, prolonged expiratory phas, rhonchi, tachypnea, wheezes Cardiovascular exam: PRESENT: irregular rhythm Pulses: PRESENT: normal radial pulses Vascular exam: PRESENT: normal capillary refill GI/Abdominal exam: PRESENT: normal bowel sounds, soft. ABSENT: distended, guarding, rebound, tenderness Extremities exam: ABSENT: clubbing, pedal edema Musculoskeletal exam: PRESENT: other - Her left upper extremity is in a splint Neurological exam: PRESENT: awake, oriented to person Psychiatric exam: PRESENT: flat affect Skin exam: PRESENT: dry, warm Results Laboratory Results: 05/10/19 09:37 05/10/19 09:37 05/10/19 16:56 Urine Color TELLO Urine Appearance TURBID Urine pH 5.0 Ur Specific [place] 1.025 Urine Protein NEGATIVE Urine Glucose (UA) NEGATIVE Urine Ketones NEGATIVE Urine Blood NEGATIVE Urine Nitrite NEGATIVE Ur Leukocyte Esterase NEGATIVE Urine WBC (Auto) 3 Urine RBC (Auto) 1 Impressions: Head CT 05/09/19 15:47 IMPRESSION: NORMAL BRAIN CT WITHOUT CONTRAST. EVIDENCE OF ACUTE STROKE: NO. Cervical Spine CT 05/09/19 15:48 IMPRESSION: CHRONIC DEGENERATIVE CHANGES. NO ACUTE FINDINGS. Humerus X-Ray 05/09/19 16:08 IMPRESSION: DISPLACED OBLIQUE FRACTURE OF THE MIDSHAFT OF THE HUMERUS. Wrist X-Ray 05/09/19 16:08 IMPRESSION: NEGATIVE STUDY OF THE LEFT WRIST. NO RADIOGRAPHIC EVIDENCE OF ACUTE INJURY. Assessment and Plan - Diagnosis (1) Fracture of shaft of left humerus Qualifiers: Encounter type: initial encounter Fracture type: closed Fracture morphology: oblique Fracture alignment: displaced Qualified Code(s): S42.332A - Displaced oblique fracture of shaft of humerus, left arm, initial encounter for closed fracture Is this a current diagnosis for this admission?: Yes Plan: She is in a Mar brace, surgery is recommending nonsurgical treatment at this time with outpatient surveillance with the possibility of surgery if she is not displaying good healing. Her having physical therapy and Occupational Therapy work with her. (2) Atrial fibrillation Qualifiers: Atrial fibrillation type: unspecified chronic Qualified Code(s): I48.20 - Chronic atrial fibrillation, unspecified; I48.2 - Chronic atrial fibrillation Is this a current diagnosis for this admission?: Yes Plan: We will continue her metoprolol and Cardizem, as well as her warfarin for an ticoagulation. INR therapeutic. Switched her metoprolol and Cardizem to long- acting formulations because she has episodic spikes in her heart rate. (3) CAD (coronary artery disease) Qualifiers: Coronary Disease-Associated Artery/Lesion type: [place] artery [place] vs. 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 She is hypoxemic but is not displaying symptoms of it. (5) Dementia Qualifiers: Dementia type: unspecified type Is this a current diagnosis for this admission?: Yes Plan: She is on Namenda which we will continue (6) Type 2 diabetes mellitus Qualifiers: Diabetes mellitus usp insulin use: without exterminator termite use Diabetes mellitus complication status: without complication Qualified Code(s): E11.9 - Type 2 diabetes mellitus without complications Is this a current diagnosis for this admission?: Yes Plan: She is on metformin at home. We will supplement that with a sliding scale here. Consistent carbohydrate diet. (7) Hypoxia Is this a current diagnosis for this admission?: Yes Plan: Currently not requiring oxygen. Will monitor carefully. - Time Time Spent with patient: 15-24 minutes
--- NOTE | 2019-05-11 19:41 | RADIOLOGY REPORT (SQ) ---
EXAM DESCRIPTION: RIBS LEFT W/PA CHEST COMPLETED DATE/TIME: 05/11/2019 4:17 pm REASON FOR STUDY: left side pain s/p fall Z79.01 HALFWAY (CURRENT) USE OF ANTICOAGULANTS I48.91 UNSPECIFIED ATRIAL FIBRILLATION COMPARISON: 07/31/2018 TECHNIQUE: Frontal view of the chest and additional views of the left ribs acquired. NUMBER OF VIEWS: Four view. LIMITATIONS: None. FINDINGS: FRONTAL CXR: No pneumothorax. No pleural effusion. No atelectasis or infiltrates. RIBS: No displaced rib fractures. No lytic or blastic bony lesions. OTHER: No other significant finding. IMPRESSION: NO PNEUMOTHORAX. NO DISPLACED RIB FRACTURES. COMMENT: SITE OF TRAUMA/COMPLAINT MARKED/STAMP COMPLETED: NO. TECHNICAL DOCUMENTATION: JOB ID: [id number] [place]-72 2010 [employer]- All Rights Reserved Reading location - IP/workstation name: [email or web address]
[2019-05-11] MEDS: ROPINIROLE HCL 0.25 MG TABLET PO SCH (21:44)
[2019-05-11] MEDS: METFORMIN HCL 500 MG TABLET PO SCH (21:45)
[2019-05-11] MEDS: ATORVASTATIN CALCIUM 20 MG TABLET PO SCH (21:45)
[2019-05-11] MEDS: DILTIAZEM HCL 120 MG CAP.SR.24H PO SCH (21:46)
[2019-05-11] MEDS ORDERED: WARFARIN SODIUM 4 MG TABLET PO SCH (22:00)
[2019-05-12] MEDS: LEVOTHYROXINE SODIUM 0.025 MG TABLET PO SCH (05:30)
[2019-05-12] MEDS: PANTOPRAZOLE SODIUM 20 MG TABLET.DR PO SCH (05:30)
[2019-05-12] MEDS: LEVOTHYROXINE SODIUM 0.1 MG TABLET PO SCH (05:30)
[2019-05-12 05:51] LABS: INTERNATIONAL RATION (INR) 3.42; PROTHROMBIN TIME 35.3 SEC (11.4-15.4)
[2019-05-12] MEDS: HYDROCODONE/ACETAMINOPHEN 5-325 MG TABLET PO PRN ×3 (06:21→20:59)
[2019-05-12] MEDS: FUROSEMIDE 20 MG TABLET PO SCH (07:45)
[2019-05-12] MEDS: POTASSIUM CHLORIDE 10 MEQ CAPSULE.ER PO SCH ×2 (10:10→17:41)
[2019-05-12] MEDS: METOPROLOL SUCCINATE 25 MG TAB.SR.24H PO SCH (10:10)
[2019-05-12] MEDS: DILTIAZEM HCL 120 MG CAP.SR.24H PO SCH ×2 (10:10→20:59)
[2019-05-12] MEDS: MULTIVITAMIN TABLET PO SCH (10:11)
[2019-05-12] MEDS: RIVASTIGMINE 4.6 MG/24 HR PATCH.TD24 TD SCH (10:11)
[2019-05-12 10:19] LABS: HEMATOCRIT 36.7 % (36.0-47.0); HEMOGLOBIN 12.4 g/dL (12.0-15.5); MEAN CORPUSCULAR HEMOGLOBIN 29.4 pg (27.0-33.4); MEAN CORPUSCULAR HGB CONC 33.9 g/dL (32.0-36.0); MEAN CORPUSCULAR VOLUME 87 fl (80-97); PLATELET COUNT 224 10^3/uL (150-450); RED BLOOD COUNT 4.24 10^6/uL (3.72-5.28); RED CELL DISTRIBUTION WIDTH 14.1 % (11.5-14.0); WHITE BLOOD COUNT 11.2 10^3/uL (4.0-10.5)
--- NOTE | 2019-05-12 14:32 | PDOC PROGRESS REPORT ---
Subjective Progress Note for:: 05/12/19 Subjective:: No adverse events overnight. No new complaints. She is having good pain control with hydrocodone without getting too sedated. Heart rate still spikes with activity. Reason For Visit: LEFT MIDSHAFT OBLIQUE HUMERUS FRACTURE Physical Exam Vital Signs: Temp Pulse Resp BP Pulse Ox 98.1 F 77 19 145/72 H 100 05/12/19 12:30 05/12/19 14:00 05/12/19 12:30 05/12/19 12:30 05/12/19 12:30 Intake & Output 05/11/19 05/12/19 05/13/19 06:59 06:59 06:59 Intake Total 240 580 630 Output Total 300 500 Balance 240 280 130 Weight 72.9 kg General appearance: PRESENT: no acute distress, cooperative, disheveled Respiratory exam: PRESENT: clear to auscultation bianca, decreased breath sounds, symmetrical, unlabored, chest wall tenderness. ABSENT: accessory muscle use, prolonged expiratory phas, rhonchi, tachypnea, wheezes Cardiovascular exam: PRESENT: irregular rhythm Pulses: PRESENT: normal radial pulses Vascular exam: PRESENT: normal capillary refill GI/Abdominal exam: PRESENT: normal bowel sounds, soft. ABSENT: distended, guarding, rebound, tenderness Extremities exam: ABSENT: clubbing, pedal edema Musculoskeletal exam: PRESENT: other - Her left upper extremity is in a splint Neurological exam: PRESENT: awake, oriented to person Psychiatric exam: PRESENT: flat affect Skin exam: PRESENT: dry, warm Results Laboratory Results: 05/12/19 04:36 05/10/19 09:37 05/12/19 04:36 WBC 11.2 H RBC 4.24 Hgb 12.4 Hct 36.7 MCV 87 MCH 29.4 MCHC 33.9 RDW 14.1 H Plt Count 224 Impressions: Head CT 05/09/19 15:47 IMPRESSION: NORMAL BRAIN CT WITHOUT CONTRAST. EVIDENCE OF ACUTE STROKE: NO. Cervical Spine CT 05/09/19 15:48 IMPRESSION: CHRONIC DEGENERATIVE CHANGES. NO ACUTE FINDINGS. Humerus X-Ray 05/09/19 16:08 IMPRESSION: DISPLACED OBLIQUE FRACTURE OF THE MIDSHAFT OF THE HUMERUS. Wrist X-Ray 05/09/19 16:08 IMPRESSION: NEGATIVE STUDY OF THE LEFT WRIST. NO RADIOGRAPHIC EVIDENCE OF ACUTE INJURY. Ribs w/Chest X-Ray 05/11/19 00:00 IMPRESSION: NO PNEUMOTHORAX. NO DISPLACED RIB FRACTURES. Assessment and Plan - Diagnosis (1) Fracture of shaft of left humerus Qualifiers: Encounter type: initial encounter Fracture type: closed Fracture morphology: oblique Fracture alignment: displaced Qualified Code(s): S42.332A - Displaced oblique fracture of shaft of humerus, left arm, initial encounter for closed fracture Is this a current diagnosis for this admission?: Yes Plan: She is in a Mar brace, surgery is recommending nonsurgical treatment at this time with outpatient surveillance with the possibility of surgery if she is not displaying good healing. Her having physical therapy and Occupational Therapy work with her. We will try to get her into a residential facility for rehab. (2) Atrial fibrillation Qualifiers: Atrial fibrillation type: unspecified chronic Qualified Code(s): I48.20 - Chronic atrial fibrillation, unspecified; I48.2 - Chronic atrial fibrillation Is this a current diagnosis for this admission?: Yes Plan: She continues on Cardizem and metoprolol. We are increasing the metoprolol because whenever she gets active her heart rate goes up and it takes her a few minutes for her to recover. She is got some room with her blood pressure so she should tolerate the increase in the medication. (3) CAD (coronary artery disease) Qualifiers: Coronary Disease-Associated Artery/Lesion type: [place] artery [place] vs. 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 She is hypoxemic but is not displaying symptoms of it. (5) Dementia Qualifiers: Dementia type: unspecified type Is this a current diagnosis for this admission?: Yes Plan: She is on Namenda which we will continue (6) Type 2 diabetes mellitus Qualifiers: Diabetes mellitus mcfp insulin use: without mcfp use Diabetes mellitus complication status: without complication Qualified Code(s): E11.9 - Type 2 diabetes mellitus without complications Is this a current diagnosis for this admission?: Yes Plan: She is on metformin at home. We will supplement that with a sliding scale here. Consistent carbohydrate diet. (7) Hypoxia Is this a current diagnosis for this admission?: Yes Plan: Currently not requiring oxygen. Will monitor carefully. - Time Time Spent with patient: 15-24 minutes
[2019-05-12] MEDS: ATORVASTATIN CALCIUM 20 MG TABLET PO SCH (20:59)
[2019-05-12] MEDS: METFORMIN HCL 500 MG TABLET PO SCH (20:59)
[2019-05-12] MEDS: ROPINIROLE HCL 0.25 MG TABLET PO SCH (21:00)
[2019-05-12] MEDS: METOPROLOL SUCCINATE 50 MG TAB.SR.24H PO SCH (21:03)
[2019-05-13] MEDS: HYDROCODONE/ACETAMINOPHEN 5-325 MG TABLET PO PRN ×2 (05:47→21:46)
[2019-05-13] MEDS: LEVOTHYROXINE SODIUM 0.025 MG TABLET PO SCH (05:48)
[2019-05-13] MEDS: LEVOTHYROXINE SODIUM 0.1 MG TABLET PO SCH (05:48)
[2019-05-13] MEDS: PANTOPRAZOLE SODIUM 20 MG TABLET.DR PO SCH (05:48)
[2019-05-13 05:50] LABS: HEMATOCRIT 36.9 % (36.0-47.0); HEMOGLOBIN 12.5 g/dL (12.0-15.5); MEAN CORPUSCULAR HEMOGLOBIN 29.4 pg (27.0-33.4); MEAN CORPUSCULAR VOLUME 87 fl (80-97); PLATELET COUNT 239 10^3/uL (150-450); RED BLOOD COUNT 4.26 10^6/uL (3.72-5.28); WHITE BLOOD COUNT 11.6 10^3/uL (4.0-10.5)
[2019-05-13 05:55] LABS: INTERNATIONAL RATION (INR) 3.21; PROTHROMBIN TIME 33.5 SEC (11.4-15.4)
[2019-05-13] MEDS: RIVASTIGMINE 4.6 MG/24 HR PATCH.TD24 TD SCH (09:29)
[2019-05-13] MEDS: FUROSEMIDE 20 MG TABLET PO SCH (09:29)
[2019-05-13] MEDS: MULTIVITAMIN TABLET PO SCH (09:29)
[2019-05-13] MEDS: POTASSIUM CHLORIDE 10 MEQ CAPSULE.ER PO SCH ×2 (09:29→18:08)
[2019-05-13] MEDS: METOPROLOL SUCCINATE 50 MG TAB.SR.24H PO SCH ×2 (09:30→21:45)
[2019-05-13] MEDS: DILTIAZEM HCL 120 MG CAP.SR.24H PO SCH ×2 (09:30→21:44)
--- NOTE | 2019-05-13 20:02 | PDOC PROGRESS REPORT ---
Subjective Progress Note for:: 05/13/19 Subjective:: No adverse events overnight. No new complaints. She is having good pain control with hydrocodone without getting too sedated. Heart rate better controlled since increasing her beta-sarah. Reason For Visit: LEFT MIDSHAFT OBLIQUE HUMERUS FRACTURE Physical Exam Vital Signs: Temp Pulse Resp BP Pulse Ox 98.9 F 70 18 125/48 L 89 L 05/13/19 19:39 05/13/19 19:39 05/13/19 19:39 05/13/19 19:39 05/13/19 19:39 Intake & Output 05/12/19 05/13/19 05/14/19 06:59 06:59 06:59 Intake Total 580 1070 Output Total 300 700 Balance 280 370 Weight 74.8 kg General appearance: PRESENT: no acute distress, cooperative, disheveled Respiratory exam: PRESENT: clear to auscultation bianca, decreased breath sounds, symmetrical, unlabored, chest wall tenderness. ABSENT: accessory muscle use, prolonged expiratory phas, rhonchi, tachypnea, wheezes Cardiovascular exam: PRESENT: irregular rhythm Pulses: PRESENT: normal radial pulses Vascular exam: PRESENT: normal capillary refill GI/Abdominal exam: PRESENT: normal bowel sounds, soft. ABSENT: distended, guarding, rebound, tenderness Extremities exam: ABSENT: clubbing, pedal edema Musculoskeletal exam: PRESENT: other - Her left upper extremity is in a splint Neurological exam: PRESENT: awake, oriented to person Psychiatric exam: PRESENT: flat affect Skin exam: PRESENT: dry, warm Results Laboratory Results: 05/13/19 04:46 05/10/19 09:37 05/13/19 04:46 WBC 11.6 H RBC 4.26 Hgb 12.5 Hct 36.9 MCV 87 MCH 29.4 MCHC 34.0 RDW 14.0 Plt Count 239 Impressions: Head CT 05/09/19 15:47 IMPRESSION: NORMAL BRAIN CT WITHOUT CONTRAST. EVIDENCE OF ACUTE STROKE: NO. Cervical Spine CT 05/09/19 15:48 IMPRESSION: CHRONIC DEGENERATIVE CHANGES. NO ACUTE FINDINGS. Humerus X-Ray 05/09/19 16:08 IMPRESSION: DISPLACED OBLIQUE FRACTURE OF THE MIDSHAFT OF THE HUMERUS. Wrist X-Ray 05/09/19 16:08 IMPRESSION: NEGATIVE STUDY OF THE LEFT WRIST. NO RADIOGRAPHIC EVIDENCE OF ACUTE INJURY. Ribs w/Chest X-Ray 05/11/19 00:00 IMPRESSION: NO PNEUMOTHORAX. NO DISPLACED RIB FRACTURES. Assessment and Plan - Diagnosis (1) Fracture of shaft of left humerus Qualifiers: Encounter type: initial encounter Fracture type: closed Fracture morphology: oblique Fracture alignment: displaced Qualified Code(s): S4 2.332A - Displaced oblique fracture of shaft of humerus, left arm, initial encounter for closed fracture Is this a current diagnosis for this admission?: Yes Plan: She is in a Mar brace, surgery is recommending nonsurgical treatment at t his time with outpatient surveillance with the possibility of surgery if she is not displaying good healing. Her having physical therapy and Occupational Therapy work with her. We will try to get her into a custodial facility for rehab. Her family has chosen [facility]. (2) Atrial fibrillation Qualifiers: Atrial fibrillation type: unspecified chronic Qualified Code(s): I48.20 - Chronic atrial fibrillation, unspecified; I48.2 - Chronic atrial fibrillation Is this a current diagnosis for this admission?: Yes Plan: Good rate control with Cardizem and an increased dose of metoprolol (3) CAD (coronary artery disease) Qualifiers: Coronary Disease-Associated Artery/Lesion type: [place] artery [place] vs. 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 She is hypoxemic but is not displaying symptoms of it. (5) Dementia Qualifiers: Dementia type: unspecified type Is this a current diagnosis for this admission?: Yes Plan: She is on Namenda which we will continue (6) Type 2 diabetes mellitus Qualifiers: Diabetes mellitus jail insulin use: without jail use Diabetes mellitus complication status: without complication Qualified Code(s): E11.9 - Type 2 diabetes mellitus without complications Is this a current diagnosis for this admission?: Yes Plan: She is on metformin at home. We will supplement that with a sliding scale here. Consistent carbohydrate diet. (7) Hypoxia Is this a current diagnosis for this admission?: Yes Plan: Resolved - Plan Summary Summary: Transfer to [facility] when a bed is available - Time Time Spent with patient: 15-24 minutes
[2019-05-13] MEDS: METFORMIN HCL 500 MG TABLET PO SCH (21:45)
[2019-05-13] MEDS: ATORVASTATIN CALCIUM 20 MG TABLET PO SCH (21:45)
[2019-05-13] MEDS: ROPINIROLE HCL 0.25 MG TABLET PO SCH (21:46)
[2019-05-13] MEDS ORDERED: WARFARIN SODIUM 2 MG TABLET PO SCH (22:00)
[2019-05-14 05:29] LABS: INTERNATIONAL RATION (INR) 2.47; PROTHROMBIN TIME 27.2 SEC (11.4-15.4)
[2019-05-14] MEDS: LEVOTHYROXINE SODIUM 0.025 MG TABLET PO SCH (06:54)
[2019-05-14] MEDS: LEVOTHYROXINE SODIUM 0.1 MG TABLET PO SCH (06:55)
[2019-05-14] MEDS: PANTOPRAZOLE SODIUM 20 MG TABLET.DR PO SCH (06:55)
[2019-05-14] MEDS: FUROSEMIDE 20 MG TABLET PO SCH (09:57)
[2019-05-14] MEDS: POTASSIUM CHLORIDE 10 MEQ CAPSULE.ER PO SCH (09:57)
[2019-05-14] MEDS: METOPROLOL SUCCINATE 50 MG TAB.SR.24H PO SCH (09:57)
[2019-05-14] MEDS: DILTIAZEM HCL 120 MG CAP.SR.24H PO SCH (09:58)
[2019-05-14] MEDS: MULTIVITAMIN TABLET PO SCH (09:58)
[2019-05-14] MEDS: RIVASTIGMINE 4.6 MG/24 HR PATCH.TD24 TD SCH (10:07)
--- NOTE | 2019-05-14 11:42 | PDOC TRANSFER SUMMARY ---
Impression - Admit/DC Date/PCP Admission Date/Primary Care Provider: 05/10/19 15:03 NARESH PERALES MD Discharge Date: 05/14/19 - Assessment Summary: Transfer to [facility] when a bed is available. She was admitted to the hospital after sustaining a fall with a fracture through the left humerus. Patient was seen by orthopedics and felt like this was a nonsurgical duration. She is under good pain control with hydrocodone which she will be discharged charged with. Patient's heart rate is better controlled following increasing of her beta- sarah. Patient lives alone and because she would benefit from rehab is being discharged to [facility]. She had been admitted under observation status mostly for pain control and orthopedic consultation - Additional Information Resuscitation Status: Do Not Resuscitate Discharge Diet: As Tolerated Discharge Activity: Activity As Tolerated Referrals: [facility] [Outside] NARESH PERALES MD [Primary Care Provider] - Follow up as needed Prescriptions: Diltiazem HCl [Cardizem Cd 120 mg Capsule] 120 mg PO Q12 30 Days #60 cap.sr.24h Hydrocodone/Acetaminophen [Proctor 5-325 mg Tablet] 1 tab PO Q6HP PRN 3 Days #12 tablet PRN Reason: Metoprolol Succinate [Toprol Xl 50 mg Tab.sr] 50 mg PO Q12 30 Days #60 tab.sr.24h Home Medications: Aspirin [Ecotrin 81 mg EC Tablet] 81 mg PO DAILY 05/09/19 Atorvastatin Calcium [Lipitor 20 mg Tablet] 20 mg PO QHS 05/09/19 Ergocalciferol (Vitamin D2) [Vitamin D2] 50,000 unit PO WE@1000 05/09/19 Furosemide [Lasix 20 mg Tablet] 20 mg PO QAM 05/09/19 Levothyroxine Sodium [Synthroid] 125 mcg PO DAILY 05/09/19 Metformin HCl [Glucophage 500 mg Tablet] 500 mg PO QHS 05/09/19 Multivitamin [One-A-Day Essential] 1 tab PO DAILY 05/09/19 Omeprazole 20 mg PO DAILY 05/09/19 Potassium Chloride [Klor-Con M10] 10 meq PO BID 05/09/19 Rivastigmine [Exelon 4.6 mg/24 Hr Transdermal Patch] 1 each TD DAILY 05/09/19 Ropinirole HCl [Requip 0.25 mg Tablet] 0.25 mg PO QHS 05/09/19 Warfarin Sodium [Coumadin 5 mg Tablet] 5 mg PO QHS 05/09/19 Diltiazem HCl [Cardizem Cd 120 mg Capsule] 120 mg PO Q12 30 Days #60 cap.sr.24h 05/14/19 Hydrocodone/Acetaminophen [Proctor 5-325 mg Tablet] 1 tab PO Q6HP PRN 3 Days #12 tablet 05/14/19 Metoprolol Succinate [Toprol Xl 50 mg Tab.sr] 50 mg PO Q12 30 Days #60 tab.sr.24h 05/14/19 History of Present Illiness History of Present Illness: DEVANG CORONEL is a 84 year old female Physical Exam Vital Signs: Temp Pulse Resp BP Pulse Ox 97.8 F 81 17 139/66 H 91 L 05/14/19 07:58 05/14/19 07:58 05/14/19 07:58 05/14/19 07:58 05/14/19 07:58 Intake & Output 05/13/19 05/14/19 05/15/19 06:59 06:59 06:59 Intake Total 1070 700 Output Total 700 400 Balance 370 300 Weight 74.8 kg 76.2 kg Results Laboratory Results: WBC 11.6 10^3/uL (4.0-10.5) H 05/13/19 04:46 RBC 4.26 10^6/uL (3.72-5.28) 05/13/19 04:46 Hgb 12.5 g/dL (12.0-15.5) 05/13/19 04:46 Hct 36.9 % (36.0-47.0) 05/13/19 04:46 MCV 87 fl (80-97) 05/13/19 04:46 MCH 29.4 pg (27.0-33.4) 05/13/19 04:46 MCHC 34.0 g/dL (32.0-36.0) 05/13/19 04:46 RDW 14.0 % (11.5-14.0) 05/13/19 04:46 Plt Count 239 10^3/uL (150-450) 05/13/19 04:46 Lymph % (Auto) 10.0 % (13-45) L 05/09/19 18:00 [place] % (Auto) 6.8 % (3-13) 05/09/19 18:00 Eos % (Auto) 0.3 % (0-6) 05/09/19 18:00 Baso % (Auto) 0.4 % (0-2) 05/09/19 18:00 Absolute Neuts (auto) 12.5 10^3/uL (1.7-8.2) H 05/09/19 18:00 Absolute Lymphs (auto) 1.5 10^3/uL (0.5-4.7) 05/09/19 18:00 Absolute Monos (auto) 1.0 10^3/uL (0.1-1.4) 05/09/19 18:00 Absolute Eos (auto) 0.0 10^3/uL (0.0-0.6) 05/09/19 18:00 Absolute Basos (auto) 0.1 10^3/uL (0.0-0.2) 05/09/19 18:00 Seg Neutrophils % 82.5 % (42-78) H 05/09/19 18:00 PT 27.2 SEC (11.4-15.4) H 05/14/19 03:48 INR 2.47 05/14/19 03:48 Sodium 139.4 mmol/L (137-145) 05/10/19 09:37 Potassium 4.1 mmol/L (3.6-5.0) 05/10/19 09:37 Chloride 103 mmol/L (98-107) 05/10/19 09:37 Carbon Dioxide 27 mmol/L (22-30) 05/10/19 09:37 Anion Gap 9 (5-19) 05/10/19 09:37 BUN 13 mg/dL (7-20) 05/10/19 09:37 Creatinine 0.85 mg/dL (0.52-1.25) 05/10/19 09:37 Est GFR ( Amer) > 60 (>60) 05/10/19 09:37 Est GFR (MDRD) Non-Af > 60 (>60) 05/10/19 09:37 Glucose 99 mg/dL (75-110) 05/10/19 09:37 POC Glucose 146 mg/dL (70-110) H 05/11/19 12:13 Calcium 9.1 mg/dL (8.4-10.2) 05/10/19 09:37 Urine Color TELLO 05/10/19 16:56 Urine Appearance TURBID 05/10/19 16:56 Urine pH 5.0 (5.0-9.0) 05/10/19 16:56 Ur Specific [place] 1.025 05/10/19 16:56 Urine Protein NEGATIVE mg/dL (NEGATIVE) 05/10/19 16:56 Urine Glucose (UA) NEGATIVE mg/dL (NEGATIVE) 05/10/19 16:56 Urine Ketones NEGATIVE mg/dL (NEGATIVE) 05/10/19 16:56 Urine Blood NEGATIVE (NEGATIVE) 05/10/19 16:56 Urine Nitrite NEGATIVE (NEGATIVE) 05/10/19 16:56 Urine Bilirubin NEGATIVE (NEGATIVE) 05/10/19 16:56 Urine Urobilinogen NEGATIVE mg/dL (<2.0) 05/10/19 16:56 Ur Leukocyte Esterase NEGATIVE (NEGATIVE) 05/10/19 16:56 Urine WBC (Auto) 3 /HPF 05/10/19 16:56 Urine RBC (Auto) 1 /HPF 05/10/19 16:56 U Hyaline Cast (Auto) 1 /LPF 05/10/19 16:56 Squamous Epi Cells Auto <1 /HPF 05/10/19 16:56 Urine Mucus (Auto) FEW /LPF 05/10/19 16:56 Urine Ascorbic Acid NEGATIVE (NEGATIVE) 05/10/19 16:56 Impressions: Head CT 05/09/19 15:47 IMPRESSION: NORMAL BRAIN CT WITHOUT CONTRAST. EVIDENCE OF ACUTE STROKE: NO. Cervical Spine CT 05/09/19 15:48 IMPRESSION: CHRONIC DEGENERATIVE CHANGES. NO ACUTE FINDINGS. Humerus X-Ray 05/09/19 16:08 IMPRESSION: DISPLACED OBLIQUE FRACTURE OF THE MIDSHAFT OF THE HUMERUS. Wrist X-Ray 05/09/19 16:08 IMPRESSION: NEGATIVE STUDY OF THE LEFT WRIST. NO RADIOGRAPHIC EVIDENCE OF ACUTE INJURY. Ribs w/Chest X-Ray 05/11/19 00:00 IMPRESSION: NO PNEUMOTHORAX. NO DISPLACED RIB FRACTURES. Stroke Is this a Stroke Patient?: No Acute Heart Failure - Is this a Heart Failure Patient?: No
[2019-05-14 11:54] VITALS: BP 134/74
[2019-05-14] MEDS ORDERED: WARFARIN SODIUM 2.5 MG TABLET PO SCH (22:00)
[2019-05-15] MEDS ORDERED: ERGOCALCIFEROL (VITAMIN D2) 50000 UNIT (1.25 MG) CAPSULE PO SCH (10:00)
== END 2019-05-14 17:15 | DRG 563 ==
LOC: ER 14:57 → EH 19:17 → 4N 21:07 → OBSVTOIN 05-10 15:03
PROVIDERS: ADMIT Family Medicine; ATTEND Family Medicine
PROC: 2W3DX1Z Immobilization of Left Lower Arm using Splint (ICD-10-PCS; principal; 2019-05-10)
DX: S42.332A Displaced oblique fracture of shaft of humerus, left arm, initial encounter for closed fracture (principal); I48.20 Chronic atrial fibrillation, unspecified; W18.30XA Fall on same level, unspecified, initial encounter; Z66 Do not resuscitate; E78.5 Hyperlipidemia, unspecified; I10 Essential (primary) hypertension; E11.9 Type 2 diabetes mellitus without complications; K21.9 Gastro-esophageal reflux disease without esophagitis; I25.111 Atherosclerotic heart disease of native coronary artery with angina pectoris with documented spasm; J43.9 Emphysema, unspecified; F03.90 Unspecified dementia, unspecified severity, without behavioral disturbance, psychotic disturbance, mood disturbance, and anxiety; R09.02 Hypoxemia; Y92.009 Unspecified place in unspecified non-institutional (private) residence as the place of occurrence of the external cause; E78.00 Pure hypercholesterolemia, unspecified; Z60.2 Problems related to living alone; Z79.84 Long term (current) use of oral hypoglycemic drugs; Z79.82 Long term (current) use of aspirin; Z79.890 Hormone replacement therapy; Z79.899 Other long term (current) drug therapy; Z79.01 Long term (current) use of anticoagulants; Z88.6 Allergy status to analgesic agent; Z88.1 Allergy status to other antibiotic agents; Z88.2 Allergy status to sulfonamides; Z91.018 Allergy to other foods
CPT/HCPCS: 36415; 70450; 72125; 80048; 81001; 82962; 85025; 85027; 85610; 93005; 93010; 99285; G0378; J2405; J3490; L4386; S0119

== ENCOUNTER 2019-05-17 16:16 | Inpatient (IN) | payer MEDICARE, OTHER ==
--- NOTE | 2019-05-17 17:38 | RADIOLOGY REPORT (SQ) ---
EXAM DESCRIPTION: HUMERUS LEFT COMPLETED DATE/TIME: 05/17/2019 5:28 pm REASON FOR STUDY: recent fracture; swelling and discoloraton present COMPARISON: 05/09/2019 NUMBER OF VIEWS: Two views. TECHNIQUE: Two radiographic images were acquired of the left humerus to include elbow and shoulder i n at least one projection. LIMITATIONS: None. FINDINGS: MINERALIZATION: Osteopenia. BONES: Re- demonstration of a moderately displaced oblique fracture through the mid humeral diaphysis . The fracture fragments are in stable alignment. No new or previously occult fractures. SOFT TISSUES: Soft tissue swelling surrounds the injury site. OTHER: No other significant finding. IMPRESSION: Re- demonstration of a moderately displaced oblique fracture through the mid humeral mera physis. No acute findings. TECHNICAL DOCUMENTATION: JOB ID: [id number] [employer]- All Rights Reserved Reading location - IP/workstation name: [email or web address]
--- NOTE | 2019-05-17 17:55 | ER Document Report ---
ED Medical Screen (RME) - General Chief Complaint: Arm Problem Stated Complaint: LEFT ARM SWOLLEN Time Seen by Provider: 05/17/19 17:43 Primary Care Provider: NARESH PERALES MD [Primary Care Provider] - Follow up as needed Notes: Patient is a 84-year-old female with a history of A. fib, COPD, CHF who presents emergency department with a chief complaint of altered mental status and left arm swelling. Family reports that the patient was diagnosed with a left humerus fracture about 1 week ago and was placed in a compression dressing. They report that she has had significant bruising and swelling to the left upper extremity since then. They also report that she is living at [facility] and has become more altered over the past 36 hours. They are unaware of a report of fever. Patient does have Alzheimer's but she is much more confused per the family. TRAVEL OUTSIDE OF THE [place] IN LAST 30 DAYS: No - Related Data Allergies/Adverse Reactions: [place] And Derivatives Allergy (Unknown, Verified 07/28/18 13:19) meperidine HCl [From Demerol] Allergy (Unknown, Verified 07/28/18 13:19) Sulfa (Sulfonamide Antibiotics) Allergy (Unknown, Verified 07/28/18 13:19) morphine [Morphine] Adverse Reaction (Intermediate, Verified 07/28/18 13:19) Vomiting amoxicillin trihydrate [From Augmentin] Adverse Reaction (Unknown, Verified 07/28/18 13:19) Potassium Clavulanate * [From Augmentin] Adverse Reaction (Unknown, Verified 07/28/18 13:19) Past Medical History - Past Medical History Cardiac Medical History: Reports: Hx Atrial Fibrillation, Hx Coronary Artery Disease, Hx Hypercholesterolemia, Hx Hypertension Pulmonary Medical History: Reports: Hx COPD Endocrine Medical History: Reports: Hx Diabetes Mellitus Type 2 Renal/ Medical History: Denies: Hx Peritoneal Dialysis GI Medical History: Reports: Hx Gastroesophageal Reflux Disease Psychiatric Medical History: Denies: Hx Depression Past Surgical History: Reports: Hx Bowel Surgery - exploratory, Hx Breast Surgery - cyst removal, Hx Cholecystectomy, Hx Hysterectomy, Hx Pancreatic Surgery - Immunizations Hx Diphtheria, Pertussis, Tetanus Vaccination: Yes Physical Exam - Vital signs Vitals: Pulse Ox 98 05/17/19 16:29 Course - Re-evaluation Re-evalutation: 05/17/19 17:55 I have greeted and performed a rapid initial assessment of this patient. [facility] prehensive ED assessment and evaluation of the patient, analysis of test results and completion of the medical decision making process will be conducted by additional ED providers. - Vital Signs Vital signs: Temp Pulse Resp BP Pulse Ox 97.8 F 20 125/60 98 05/17/19 16:34 05/17/19 16:34 05/17/19 16:34 05/17/19 16:34 Doctor's Discharge - Discharge Referrals: NARESH PERALES MD [Primary Care Provider] - Follow up as needed
[2019-05-17 18:30] LABS: APPEARANCE,URINE SLIGHTLY-CLOUDY; BILIRUBIN,URINE NEGATIVE (NEGATIVE); COLOR,URINE YELLOW; GLUCOSE, URINE NEGATIVE (NEGATIVE); KETONES,URINE NEGATIVE (NEGATIVE); LEUKOCYTE ESTERASE,URINE TRACE (NEGATIVE); NITRITE,URINE POSITIVE (NEGATIVE); PROTEIN,URINE NEGATIVE (NEGATIVE); URINE SPECIFIC GRAVITY 1.009; UROBILINOGEN,URINE NEGATIVE mg/dL (<2.0)
[2019-05-17 19:18] LABS: ABSOLUTE BASOPHILS # (AUTO) 0.1 10^3/uL (0.0-0.2); ABSOLUTE EOSINOPHILS # (AUTO) 0.3 10^3/uL (0.0-0.6); ABSOLUTE LYMPHOCYTES (AUTO) 2.6 10^3/uL (0.5-4.7); ABSOLUTE MONOCYTES (AUTO) 1.1 10^3/uL (0.1-1.4); BASOPHILS % (AUTO) 0.8 % (0-2); EOSINOPHILS % (AUTO) 3.3 % (0-6); HEMATOCRIT 35.9 % (36.0-47.0); HEMOGLOBIN 12.2 g/dL (12.0-15.5); MEAN CORPUSCULAR HEMOGLOBIN 29.6 pg (27.0-33.4); MEAN CORPUSCULAR VOLUME 87 fl (80-97); MONOCYTES % (AUTO) 10.6 % (3-13); PLATELET COUNT 378 10^3/uL (150-450); RED BLOOD COUNT 4.12 10^6/uL (3.72-5.28); RED CELL DISTRIBUTION WIDTH 13.8 % (11.5-14.0); SEGMENTED NEUTROPHILS % (AUTO) 59.3 % (42-78); TOTAL CELLS COUNTED % (AUTO) 100 %; WHITE BLOOD COUNT 10.2 10^3/uL (4.0-10.5)
[2019-05-17 19:23] LABS: INTERNATIONAL RATION (INR) 2.63; PROTHROMBIN TIME 28.6 SEC (11.4-15.4)
[2019-05-17 19:24] LABS: PARTIAL THROMBOPLASTIN TIME 38.3 SEC (23.5-35.8)
--- NOTE | 2019-05-17 19:36 | RADIOLOGY REPORT (SQ) ---
EXAM DESCRIPTION: CHEST SINGLE VIEW COMPLETED DATE/TIME: 05/17/2019 7:26 pm REASON FOR STUDY: ams COMPARISON: 07/31/2018 EXAM PARAMETERS: NUMBER OF VIEWS: One view. TECHNIQUE: Single frontal radiographic view of the chest acquired. RADIATION DOSE: NA LIMITATIONS: None. FINDINGS: LUNGS AND PLEURA: Left lung base atelectasis. No opacities, masses or pneumothorax. No pl eural effusion. MEDIASTINUM AND HILAR STRUCTURES: No masses. Contour normal. HEART AND VASCULAR STRUCTURES: Heart normal in size. Normal vasculature. BONES: Partially imaged moderately displaced oblique fracture through left humerus. Degenerative diogo nges are seen of the acromioclavicular and glenohumeral joints as well as the thoracic spine. HARDWARE: None in the chest. OTHER: No other significant finding. IMPRESSION: No evidence of acute cardiopulmonary abnormality. TECHNICAL DOCUMENTATION: JOB ID: [id number] [employer]- All Rights Reserved Reading location - IP/workstation name: [email or web address]
[2019-05-17 19:39] LABS: ALBUMIN 3.9 g/dL (3.5-5.0); ALKALINE PHOSPHATASE 156 U/L (38-126); ANION GAP 10 (5-19); ASPARTATE AMINO TRANSFERASE 60 U/L (14-36); BILIRUBIN,DIRECT 0.7 mg/dL (0.0-0.4); BILIRUBIN,TOTAL 2.4 mg/dL (0.2-1.3); BLOOD UREA NITROGEN 15 mg/dL (7-20); CALCIUM 9.3 mg/dL (8.4-10.2); CARBON DIOXIDE 27 mmol/L (22-30); CHLORIDE 100 mmol/L (98-107); GLUCOSE 101 mg/dL (75-110); POTASSIUM 4.2 mmol/L (3.6-5.0); TOTAL PROTEIN 7.5 g/dL (6.3-8.2)
--- NOTE | 2019-05-17 20:55 | ER Document Report ---
ED General - General Chief Complaint: Arm Problem Stated Complaint: LEFT ARM SWOLLEN Time Seen by Provider: 05/17/19 17:43 Primary Care Provider: NARESH PERALES MD [Primary Care Provider] - Follow up as needed Notes: 84-year-old female with a history of A. fib, COPD, CHF who presents emergency department with a chief complaint of altered mental status and left arm swelling. Family reports that the patient was diagnosed with a left humerus fracture about 1 week ago and was placed in a compression dressing. They report that she has had significant bruising and swelling to the left upper extremity since then. They also report that she is living at [facility] and has become more altered over the past 36 hours. They are unaware of a report of fever. Patient does have Alzheimer's but she is much more confused per the family and is hallucinating. Denies any chest pain or acute shortness of breath, denies nausea/vomiting/diarrhea/constipation. TRAVEL OUTSIDE OF THE [place] IN LAST 30 DAYS: No - Related Data Allergies/Adverse Reactions: [place] And Derivatives Allergy (Unknown, Verified 07/28/18 13:19) meperidine HCl [From Demerol] Allergy (Unknown, Verified 07/28/18 13:19) Sulfa (Sulfonamide Antibiotics) Allergy (Unknown, Verified 07/28/18 13:19) morphine [Morphine] Adverse Reaction (Intermediate, Verified 07/28/18 13:19) Vomiting amoxicillin trihydrate [From Augmentin] Adverse Reaction (Unknown, Verified 0 07/28/18 13:19) Potassium Clavulanate * [From Augmentin] Adverse Reaction (Unknown, Verified 07/28/18 13:19) Past Medical History - Social History Smoking Status: Never Smoker Family History: Reviewed & Not Pertinent Patient has suicidal ideation: No Patient has homicidal ideation: No - Past Medical History Cardiac Medical History: Reports: Hx Atrial Fibrillation, Hx Coronary Artery Disease, Hx Hypercholesterolemia, Hx Hypertension Pulmonary Medical History: Reports: Hx COPD Endocrine Medical History: Reports: Hx Diabetes Mellitus Type 2 Renal/ Medical History: Denies: Hx Peritoneal Dialysis GI Medical History: Reports: Hx Gastroesophageal Reflux Disease Psychiatric Medical History: Denies: Hx Depression Past Surgical History: Reports: Hx Bowel Surgery - exploratory, Hx Breast Surgery - cyst removal, Hx Cholecystectomy, Hx Hysterectomy, Hx Pancreatic Surgery - Immunizations Hx Diphtheria, Pertussis, Tetanus Vaccination: Yes Hx Pneumococcal Vaccination: 06/19/11 Review of Systems - Review of Systems Constitutional: See HPI EENT: No symptoms reported Cardiovascular: See HPI Respiratory: See HPI Gastrointestinal: See HPI Genitourinary: No symptoms reported Female Genitourinary: No symptoms reported Musculoskeletal: No symptoms reported Skin: No symptoms reported Hematologic/Lymphatic: No symptoms reported Neurological/Psychological: See HPI Physical Exam - Vital signs Vitals: Pulse Ox 98 05/17/19 16:29 - Notes Notes: PHYSICAL EXAMINATION: Reviewed vital signs and charting by RN GENERAL: Alert, interacts well. No acute distress. HEAD: Normocephalic, atraumatic. EYES: Pupils equal and round. Extraocular movements intact, no scleral icterus. ENT: Oral mucosa moist, tongue midline. NECK: Full range of motion. Trachea midline. LUNGS: Clear to auscultation bilaterally, no wheezes, rales, or rhonchi. No respiratory distress. HEART: Irregularly irregular rhythm. No murmur ABDOMEN: soft, non-tender. No distention. Bowel sounds present EXTREMITIES: Moves all 4 extremities spontaneously. Edema of the left upper extremity, significant ecchymosis, acute tenderness to palpation, patient is not wearing her brace. Brisk cap refill and 2+ irregular radial pulse PSYCH: Normal affect, normal mood. SKIN: Warm, dry, normal turgor. No rashes or lesions noted. Course - Re-evaluation Re-evalutation: 05/17/19 20:55 Patient is well-appearing and nontoxic. She presents for significant left upper extremity edema secondary to a midshaft humerus fractures. Brisk cap refill and normal distal neurovascular exam. She is significantly altered and, per daughter, is hallucinating so I am going to get a CT head without to ensure that there is no delayed intracranial bleed. Patient has positive nitrites and a previous urine culture showed E BSL. Meropenem 500 mg IV once ordered. Patient does have a documented allergy to Augmentin but per daughter she just vomits and is not a true allergic reaction. 05/17/19 21:[address] Ring, hospitalist, who accepted the patient for full admission to the medical floor. - Vital Signs Vital signs: Temp Pulse Resp BP Pulse Ox 97.8 F 20 128/61 H 96 05/17/19 16:34 05/17/19 20:00 05/17/19 17:06 05/17/19 20:00 - Laboratory Result Diagrams: 05/17/19 18:58 05/17/19 18:58 Laboratory results interpreted by me: 05/17/19 05/17/19 05/17/19 18:13 18:58 18:58 Hct 35.9 L PT APTT Total Bilirubin 2.4 H Direct Bilirubin 0.7 H AST 60 H Alkaline Phosphatase 156 H Urine Blood SMALL H Urine Nitrite POSITIVE H Ur Leukocyte Esterase TRACE H 05/17/19 18:58 Hct PT 28.6 H APTT 38.3 H Total Bilirubin Direct Bilirubin AST Alkaline Phosphatase Urine Blood Urine Nitrite Ur Leukocyte Esterase Discharge - Discharge Clinical Impression: Altered mental status Qualifiers: Altered mental status type: unspecified Qualified Code(s): R41.82 - Altered mental status, unspecified Urinary tract infection Qualifiers: Urinary tract infection type: acute cystitis Hematuria presence: without hematuria Qualified Code(s): N30.00 - Acute cystitis without hematuria Condition: Good Disposition: ADMITTED INPATIENT Admitting Provider: Jhonathan (Hospitalist) Unit Admitted: Medical Floor Referrals: NARESH PERALES MD [Primary Care Provider] - Follow up as needed
[2019-05-17] MEDS ORDERED: MEROPENEM 500 MG VIAL IV ONE (21:00)
[2019-05-17] MEDS ORDERED: HYDROCODONE/ACETAMINOPHEN 5-325 MG TABLET PO ONE (21:20)
--- NOTE | 2019-05-17 21:34 | RADIOLOGY REPORT (SQ) ---
EXAM DESCRIPTION: CT HEAD WITHOUT IV CONTRAST COMPLETED DATE/TME: 05/17/2019 20:34 CLINICAL HISTORY: 84 years Female altered mental status COMPARISON: None. TECHNIQUE: Contiguous axial CT images obtained through the brain without IV contrast. This exam was performed according to our department optimization program which includes automated exposure control, adjustment of the mA and/or kv according to patient size and/or use of iterative reconstruction technique. FINDINGS: The ventricles and sulci are prominent consistent with atrophic changes. Microvascular ischemic changes. No midline shift or mass effect. No mass lesions. No acute hemorrhage. Atherosclerotic calcifications. Fluid in the left maxillary sinus. No depressed calvarial fractures. IMPRESSION: No acute intracranial abnormality is identified. Fluid in the left maxillary sinus which may reflect acute sinusitis Generalized atrophy with microvascular ischemic changes.
[2019-05-17] MEDS ORDERED: NORMAL SALINE 500 ML IV ONE (21:39)
[2019-05-17] MEDS ORDERED: LEVALBUTEROL HCL NEB 0.63 MG/3 ML AMPUL NEB PRN (23:20)
[2019-05-17] MEDS ORDERED: MAG HYDROX/AL HYDROX/SIMETH SUSP 30 ML UDCUP PO PRN (23:20)
[2019-05-17] MEDS ORDERED: ONDANSETRON HCL INJ/PF 4 MG/2 ML SDV IV PRN (23:20)
[2019-05-17] MEDS ORDERED: MAGNESIUM HYDROXIDE SUSP 30 ML UDCUP PO PRN (23:20)
[2019-05-17] MEDS ORDERED: INSULIN REG, HUMAN 100 UNIT/ML 3 ML VIAL (PYX) SUBCUT PRN (23:27)
[2019-05-17] MEDS ORDERED: HYDRALAZINE HCL INJ/PF 20 MG/1 ML SDV IV PRN (23:27)
[2019-05-17] MEDS ORDERED: DEXTROSE 50%-WATER 25 GM/50 ML DISP.SYRIN IV PRN ×2 (23:28)
[2019-05-17] MEDS ORDERED: GLUCAGON,HUMAN RECOMB 1 MG INJ IM PRN (23:28)
[2019-05-17] MEDS ORDERED: DEXTROSE 40% GEL 15 GM TUBE PO PRN ×2 (23:28)
[2019-05-17] MEDS ORDERED: LORAZEPAM INJ 2 MG/1 ML VIAL IV PRN (23:28)
[2019-05-17] MEDS ORDERED: MEROPENEM 500 MG VIAL IV PRN (23:30)
--- NOTE | 2019-05-18 01:37 | PDOC H&P ---
History of Present Illness Admission Date/PCP: 05/17/19 22:09 NARESH PERALES MD Patient complains of: Altered mental status History of Present Illness: DEVANG CORONEL is a 84 year old female who presented to the emergency room with a 2-day history of altered mental status. Patient has chronic Alzheimer's dementia but her daughter has noted a dramatic increase in her level of confusion accompanied by hallucinations over the last 2 days. Patient is unable to contribute to her medical history due to her dementia. The family has not noted additional accompanying or associated signs and symptoms. Her family admits prior similar episodes with urinary tract infections. Patient recently had a fracture of her humerus which was treated conservatively and she also was noted to have had a urinary tract infection with an extended spectrum beta- lactamase E. coli. She recently moved from living at home to living at [facility] following her hospitalization for the humeral fracture. The family has not been able to identify any additional aggravating or ameliorating factors for her altered mental status. In the emergency room the patient was found to have a positive urine nitrite and given her history of ESBL E. coli IV antibiotic therapy was initiated. Patient was subsequently admitted to hospital for further evaluation and treatment. Past Medical History Cardiac Medical History: Reports: Atrial Fibrillation - Chronic, Coronary Artery Disease, Hyperlipidema, Hypertension Denies: Congestive Heart Failure Pulmonary Medical History: Reports: Chronic Obstructive Pulmonary Disease (COPD) Denies: Asthma EENT Medical History: Denies: Ears - Hearing aids, Nose - Nasal polyps Neurological Medical History: Denies: Hemorrhagic CVA, Ischemic CVA, Seizures Endocrine Medical History: Reports: Diabetes Mellitus Type 2 Denies: Diabetes Mellitus Type 1, Hyperthyroidism, Hypothyroidism, Obesity Renal/ Medical History: Denies: Chronic Kidney Disease, Nephrolithiasis Malignancy Medical History: Reports: None GI Medical History: Reports: Gastroesophageal Reflux Disease Denies: Cirrhosis, Crohn's Disease, Hepatitis, Peptic Ulcer Disease, U lcerative Colitis Musculoskeltal Medical History: Denies: Arthritis, Gout Skin Medical History: Denies: Eczema, Psoriasis Psychiatric Medical History: Denies: Alcohol Dependency, Depression, Substance Abuse, Tobacco Dependency Traumatic Medical History: Reports: None Hematology: Reports: 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 Denies: Anemia Infectious Medical History: Reports: None Past Surgical History Past Surgical History: Reports: Cholecystectomy, Hysterectomy Social History Information Source: Relative Lives with: [facility] Smoking Status: Never Smoker Electronic Cigarette use?: No Frequency of Alcohol Use: None Hx Recreational Drug Use: No Drugs: None Hx Prescription Drug Abuse: No - Advance Directive Resuscitation Status: Full Code Surrogate healthcare decision maker:: Devyn Chandler Family History Parental Family History Reviewed: Yes Children Family History Reviewed: No Sibling(s) Family History Reviewed.: Yes Medication/Allergy Home Medications: Aspirin [Ecotrin 81 mg EC Tablet] 81 mg PO DAILY 05/09/19 Atorvastatin Calcium [Lipitor 20 mg Tablet] 20 mg PO QHS 05/09/19 Ergocalciferol (Vitamin D2) [Vitamin D2] 50,000 unit PO WE@1000 05/09/19 Furosemide [Lasix 20 mg Tablet] 20 mg PO QAM 05/09/19 Levothyroxine Sodium [Synthroid] 125 mcg PO DAILY 05/09/19 Metformin HCl [Glucophage 500 mg Tablet] 500 mg PO QHS 05/09/19 Multivitamin [One-A-Day Essential] 1 tab PO DAILY 05/09/19 Omeprazole 20 mg PO DAILY 05/09/19 Potassium Chloride [Klor-Con M10] 10 meq PO BID 05/09/19 Rivastigmine [Exelon 4.6 mg/24 Hr Transdermal Patch] 1 each TD DAILY 05/09/19 Ropinirole HCl [Requip 0.25 mg Tablet] 0.25 mg PO QHS 05/09/19 Warfarin Sodium [Coumadin 5 mg Tablet] 5 mg PO QHS 05/09/19 Diltiazem HCl [Cardizem Cd 120 mg Capsule] 120 mg PO Q12 30 Days #60 cap.sr.24h 05/14/19 Hydrocodone/Acetaminophen [[place] 5-325 mg Tablet] 1 tab PO Q6HP PRN 3 Days #12 tablet 05/14/19 Metoprolol Succinate [Toprol Xl 50 mg Tab.sr] 50 mg PO Q12 30 Days #60 tab.sr.24h 05/14/19 Allergies/Adverse Reactions: [place] And Derivatives Allergy (Unknown, Verified 07/28/18 13:19) meperidine HCl [From Demerol] Allergy (Unknown, Verified 07/28/18 13:19) Sulfa (Sulfonamide Antibiotics) Allergy (Unknown, Verified 07/28/18 13:19) morphine [Morphine] Adverse Reaction (Intermediate, Verified 07/28/18 13:19) Vomiting amoxicillin trihydrate [From Augmentin] Adverse Reaction (Unknown, Verified 07/28/18 13:19) Potassium Clavulanate * [From Augmentin] Adverse Reaction (Unknown, Verified 07/28/18 13:19) Review of Systems ROS unobtainable: Due to mental status - Alzheimer's dementia with acute encephalopathy Physical Exam Vital Signs: Temp Pulse Resp BP Pulse Ox 98.0 F 18 140/64 H 98 05/17/19 22:38 05/17/19 22:38 05/17/19 22:38 05/17/19 22:38 Intake & Output 05/15/19 05/16/19 05/17/19 23:59 23:59 23:59 Weight 72.364 kg General appearance: PRESENT: no acute distress, cooperative Head exam: PRESENT: atraumatic, normocephalic Eye exam: PRESENT: conjunctiva pink. ABSENT: conjunctival injection, scleral icterus Ear exam: PRESENT: normal external ear exam. ABSENT: bleeding, drainage Mouth exam: PRESENT: dry mucosa, neck supple Neck exam: ABSENT: thyromegaly, tracheal deviation Respiratory exam: PRESENT: clear to auscultation bianca, symmetrical, unlabored Cardiovascular exam: PRESENT: irregular rhythm - Irregularly irregular rate and rhythm. ABSENT: clicks, gallop, rubs Pulses: PRESENT: normal radial pulses, normal dorsalis pedis pul Vascular exam: PRESENT: normal capillary refill. ABSENT: pallor GI/Abdominal exam: PRESENT: normal bowel sounds, soft Rectal exam: PRESENT: deferred Extremities exam: ABSENT: joint swelling, pedal edema Musculoskeletal exam: ABSENT: deformity, dislocation Neurological exam: PRESENT: altered - Confused, awake, CN II-XII grossly intact Psychiatric exam: PRESENT: agitated - Mildly agitated, other - Confused Focused psych exam: PRESENT: restlessness Skin exam: PRESENT: dry, intact, warm. ABSENT: jaundice, rash, urticaria Results Laboratory Results: 05/17/19 18:58 05/17/19 18:58 05/17/19 05/17/19 05/17/19 18:13 18:58 18:58 WBC 10.2 RBC 4.12 Hgb 12.2 Hct 35.9 L MCV 87 MCH 29.6 MCHC 34.0 RDW 13.8 Plt Count 378 Seg Neutrophils % 59.3 Sodium 137.1 Potassium 4.2 Chloride 100 Carbon Dioxide 27 Anion Gap 10 BUN 15 Creatinine 0.76 Est GFR ( Amer) > 60 Glucose 101 Calcium 9.3 Total Bilirubin 2.4 H AST 60 H Alkaline Phosphatase 156 H Total Protein 7.5 Albumin 3.9 Urine Color YELLOW Urine Appearance SLIGHTLY-CLOUDY Urine pH 5.0 Ur Specific [place] 1.009 Urine Protein NEGATIVE Urine Glucose (UA) NEGATIVE Urine Ketones NEGATIVE Urine Blood SMALL H Urine Nitrite POSITIVE H Ur Leukocyte Esterase TRACE H Urine WBC (Auto) 6 Urine RBC (Auto) 0 05/17/19 18:58 Troponin I < 0.012 Impressions: Humerus X-Ray 05/17/19 00:00 IMPRESSION: Re- demonstration of a moderately displaced oblique fracture through the mid humeral diaphysis. No acute findings. Chest X-Ray 05/17/19 17:53 IMPRESSION: No evidence of acute cardiopulmonary abnormality. Head CT 05/17/19 20:34 IMPRESSION: No acute intracranial abnormality is identified. Fluid in the left maxillary sinus which may reflect acute sinusitis Generalized atrophy with microvascular ischemic changes. Assessment and Plan - Diagnosis (1) Acute encephalopathy Is this a current diagnosis for this admission?: Yes (2) Urinary tract infection Qualifiers: Urinary tract infection type: acute cystitis Hematuria presence: without hematuria Qualified Code(s): N30.00 - Acute cystitis without hematuria Is this a current diagnosis for this admission?: Yes (3) Alzheimer's type dementia with late onset without behavioral disturbance Is this a current diagnosis for this admission?: Yes (4) Diabetes mellitus type 2 in nonobese Is this a current diagnosis for this admission?: Yes (5) Hyperlipidemia Is this a current diagnosis for this admission?: Yes (6) Gout Is this a current diagnosis for this admission?: Yes (7) CAD (coronary artery disease) Qualifiers: Coronary Disease-Associated Artery/Lesion type: teller artery [place] vs. transplanted heart: teller heart Associated angina: without angina Qualified Code(s): I25.10 - Atherosclerotic heart disease of teller coronary artery withou t angina pectoris Is this a current diagnosis for this admission?: Yes (8) COPD (chronic obstructive pulmonary disease) Qualifiers: COPD type: unspecified COPD Qualified Code(s): J44.9 - Chronic obstructive pulmonary disease, unspecified Is this a current diagnosis for this admission?: Yes (9) Atrial fibrillation Qualifiers: Atrial fibrillation type: unspecified chronic Qualified Code(s): I48.20 - Chronic atrial fibrillation, unspecified; I48.2 - Chronic atrial fibrillation Is this a current diagnosis for this admission?: Yes (10) Hypertension Qualifiers: Hypertension type: essential hypertension Qualified Code(s): I10 - Essential (primary) hypertension Is this a current diagnosis for this admission?: Yes - Plan Summary Summary: Patient was admitted to the medical floor and will receive routine supportive and symptomatic cares. She will be treated with meropenem 500 mg IV every 8 hours initially to cover for ESBL E. coli pending the results of her urinary tract infection. She will be maintained with IV fluids and will be encouraged to take a cardiac diet with diabetic and warfarin restrictions. Her mental status will be followed closely throughout her hospital stay. She will receive Ativan 1 mg IV every 4 hours as needed for agitation or anxiety. A CBC, basic metabolic profile and magnesium level be obtained in the morning. She will be continued on her routine medications as appropriate to manage her chronic medical illnesses. Daily INRs will be obtained. Before meals and at bedtime Accu-Cheks will be obtained with a sliding scale insulin for hyperglycemia and a hypoglycemic protocol in place. - Time Time Spent with patient: 15-24 minutes Medications reviewed and adjusted accordingly: Yes Anticipated discharge: Home with Homehealth, SNF, Other - Inpatient Certification Based on my medical assessment, after consideration of the patient's comorbidities, presenting symptoms, or acuity I expect that the services needed warrant INPATIENT care.: Yes I certify that my determination is in accordance with my understanding of Medicare's requirements for reasonable and necessary INPATIENT services [42 CFR 412.3e].: Yes Medical Necessity: Significant Comorbidiites Make Outpatient Treatment Too Risky, Need Close Monitoring Due to Risk of Patient Decompensation, Need For IV Fluids, Need for Neurological Checks, Need for IV Antibiotics
[2019-05-18] MEDS: FAMOTIDINE 20 MG TABLET PO SCH ×3 (02:07→21:18)
[2019-05-18] MEDS: RINGERS SOLUTION,LACTATED 1,000 ML IV PRN ×2 (04:30→14:07)
[2019-05-18] MEDS ORDERED: MEROPENEM 500 MG VIAL ONE (05:12)
[2019-05-18 05:13] LABS: HEMATOCRIT 34.4 % (36.0-47.0); HEMOGLOBIN 11.7 g/dL (12.0-15.5); MEAN CORPUSCULAR HEMOGLOBIN 29.5 pg (27.0-33.4); MEAN CORPUSCULAR HGB CONC 34.1 g/dL (32.0-36.0); MEAN CORPUSCULAR VOLUME 86 fl (80-97); PLATELET COUNT 329 10^3/uL (150-450); RED BLOOD COUNT 3.98 10^6/uL (3.72-5.28); RED CELL DISTRIBUTION WIDTH 13.9 % (11.5-14.0); WHITE BLOOD COUNT 9.5 10^3/uL (4.0-10.5)
[2019-05-18 05:24] LABS: INTERNATIONAL RATION (INR) 2.54; PROTHROMBIN TIME 27.8 SEC (11.4-15.4)
[2019-05-18] MEDS: MEROPENEM 500 MG in NORMAL SALINE 50 ML IV SCH ×3 (05:26→21:19)
[2019-05-18 05:36] LABS: ANION GAP 9 (5-19); BLOOD UREA NITROGEN 12 mg/dL (7-20); CARBON DIOXIDE 26 mmol/L (22-30); CHLORIDE 105 mmol/L (98-107); GLUCOSE 93 mg/dL (75-110)
[2019-05-18] MEDS: DOCUSATE SODIUM 100 MG CAPSULE PO SCH ×2 (09:34→20:10)
--- NOTE | 2019-05-18 12:47 | EKG REPORT ---
SEVERITY:- ABNORMAL ECG - ATRIAL FIBRILLATION BORDERLINE R WAVE PROGRESSION, ANTERIOR LEADS : Confirmed by: Lynette Yan 18-May-2019 12:47:16
--- NOTE | 2019-05-18 13:23 | PDOC PROGRESS REPORT ---
Subjective Progress Note for:: 05/18/19 Reason For Visit: ALTERED MENTAL STATUS 05/18/19 Patient was admitted for altered mental status, UTI, chronic dementia, medication error Physical Exam Vital Signs: Temp Pulse Resp BP Pulse Ox 98.7 F 86 16 139/74 H 100 05/18/19 07:59 05/18/19 07:59 05/18/19 07:59 05/18/19 07:59 05/18/19 07:59 Intake & Output 05/17/19 05/18/19 05/19/19 06:59 06:59 06:59 Intake Total 550 Output Total 175 Balance 375 Weight 74.9 kg General appearance: PRESENT: mild distress, other - Due to altered mental status Respiratory exam: PRESENT: clear to auscultation bianca. ABSENT: rales, rhonchi, wheezes Cardiovascular exam: PRESENT: RRR. ABSENT: diastolic murmur, rubs, systolic murmur Extremities exam: PRESENT: tenderness - Patient has 1+ edema distal to the left humerus secondary to compression and fracture Still has good distal pulses however, +1 edema, other Neurological exam: PRESENT: altered, oriented to person, oriented to place, oriented to time, oriented to situation, other - Patient is drowsy or lethargic but arouses easily just to voice command. Patient then answers all questions appropriately. Stays awake while family member feature Psychiatric exam: PRESENT: appropriate affect, normal mood. ABSENT: homicidal ideation, suicidal ideation Results Laboratory Results: 05/18/19 04:45 05/18/19 04:45 05/17/19 05/17/19 05/17/19 18:13 18:58 18:58 WBC 10.2 RBC 4.12 Hgb 12.2 Hct 35.9 L MCV 87 MCH 29.6 MCHC 34.0 RDW 13.8 Plt Count 378 Seg Neutrophils % 59.3 Sodium 137.1 Potassium 4.2 Chloride 100 Carbon Dioxide 27 Anion Gap 10 BUN 15 Creatinine 0.76 Est GFR ( Amer) > 60 Glucose 101 Calcium 9.3 Magnesium Total Bilirubin 2.4 H AST 60 H Alkaline Phosphatase 156 H Total Protein 7.5 Albumin 3.9 Urine Color YELLOW Urine Appearance SLIGHTLY-CLOUDY Urine pH 5.0 Ur Specific [place] 1.009 Urine Protein NEGATIVE Urine Glucose (UA) NEGATIVE Urine Ketones NEGATIVE Urine Blood SMALL H Urine Nitrite POSITIVE H Ur Leukocyte Esterase TRACE H Urine WBC (Auto) 6 Urine RBC (Auto) 0 05/18/19 05/18/19 04:45 04:45 WBC 9.5 RBC 3.98 Hgb 11.7 L Hct 34.4 L MCV 86 MCH 29.5 MCHC 34.1 RDW 13.9 Plt Count 329 Seg Neutrophils % Sodium 139.5 Potassium 4.0 Chloride 105 Carbon Dioxide 26 Anion Gap 9 BUN 12 Creatinine 0.73 Est GFR ( Amer) > 60 Glucose 93 Calcium 9.0 Magnesium 2.1 Total Bilirubin AST Alkaline Phosphatase Total Protein Albumin Urine Color Urine Appearance Urine pH Ur Specific [place] Urine Protein Urine Glucose (UA) Urine Ketones Urine Blood Urine Nitrite Ur Leukocyte Esterase Urine WBC (Auto) Urine RBC (Auto) 05/17/19 18:58 Troponin I < 0.012 Impressions: Humerus X-Ray 05/17/19 00:00 IMPRESSION: Re- demonstration of a moderately displaced oblique fracture through the mid humeral diaphysis. No acute findings. Chest X-Ray 05/17/19 17:53 IMPRESSION: No evidence of acute cardiopulmonary abnormality. Head CT 05/17/19 20:34 IMPRESSION: No acute intracranial abnormality is identified. Fluid in the left maxillary sinus which may reflect acute sinusitis Generalized atrophy with microvascular ischemic changes. 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 Is this a current diagnosis for this admission?: Yes (4) Diabetes mellitus type 2 in nonobese Is this a current diagnosis for this admission?: Yes (5) Hypertension Qualifiers: Hypertension type: essential hypertension Qualified Code(s): I10 - Essential (primary) hypertension Is this a current diagnosis for this admission?: Yes (6) Urinary tract infection Qualifiers: Urinary tract infection type: acute cystitis Hematuria presence: without hematuria Qualified Code(s): N30.00 - Acute cystitis without hematuria Is this a current diagnosis for this admission?: Yes (7) Atrial fibrillation Qualifiers: Atrial fibrillation type: chronic Is this a current diagnosis for this admission?: Yes (8) Dementia Qualifiers: Dementia type: unspecified type Is this a current diagnosis for this admission?: Yes (9) Fracture of shaft of left humerus Qualifiers: Encounter type: initial encounter Fracture type: closed Fracture morphology: oblique Fracture alignment: displaced Qualified Code(s): S42.332A - Displaced oblique fracture of shaft of humerus, left arm, initial encounter for closed fracture Is this a current diagnosis for this admission?: Yes - Plan Summary Summary: Patient was admitted to the medical floor and will receive routine supportive and symptomatic cares. She will be treated with meropenem 500 mg IV every 8 hours initially to cover for ESBL E. coli pending the results of her urinary tract infection. She will be maintained with IV fluids and will be encouraged to take a cardiac diet with diabetic and warfarin restrictions. Her mental status will be followed closely throughout her hospital stay. She will receive Ativan 1 mg IV every 4 hours as needed for agitation or anxiety. A CBC, basic metabolic profile and magnesium level be obtained in the morning. She will be continued on her routine medications as appropriate to manage her chronic medical illnesses. Daily INRs will be obtained. Before meals and at bedtime Accu-Cheks will be obtained with a sliding scale insulin for hyperglycemia and a hypoglycemic protocol in place. 05/18/2019 Spent a lot of time talking to the family about her medications and the correct dosing. Make these adjustments on her med rec Patient is more awake and alert this morning than yesterday.. White count on admission was 10.2 today is 9.5 X-ray on admission is normal He has scan shows no sign of acute neurologic disease She has no history or symptoms of sinusitis INR is 2.5 Will hydrate patient and continue IV antibiotics, urine culture and sensitivity Will have orthopedics see the patient concerning her midshaft left humeral fracture which occurred about 8 days ago. Patient's altered mental status is probably on the basis of her urinary tract infection and or her medication discrepancy - Time Time Spent with patient: 35 or more minutes
[2019-05-18] MEDS: ACETAMINOPHEN 325 MG TABLET PO PRN ×2 (13:49→21:26)
[2019-05-18 16:17] LABS: HEMATOCRIT 32.8 % (36.0-47.0); HEMOGLOBIN 11.1 g/dL (12.0-15.5); MEAN CORPUSCULAR HEMOGLOBIN 29.7 pg (27.0-33.4); MEAN CORPUSCULAR HGB CONC 33.8 g/dL (32.0-36.0); MEAN CORPUSCULAR VOLUME 88 fl (80-97); PLATELET COUNT 338 10^3/uL (150-450); RED BLOOD COUNT 3.74 10^6/uL (3.72-5.28); RED CELL DISTRIBUTION WIDTH 13.8 % (11.5-14.0); WHITE BLOOD COUNT 9.7 10^3/uL (4.0-10.5)
[2019-05-18] MEDS: ROPINIROLE HCL 0.25 MG TABLET PO SCH (21:18)
[2019-05-18] MEDS: ATORVASTATIN CALCIUM 20 MG TABLET PO SCH (21:19)
[2019-05-18] MEDS: WARFARIN SODIUM 5 MG TABLET PO SCH (21:19)
[2019-05-18] MEDS ORDERED: METFORMIN HCL 500 MG TABLET PO SCH (22:00)
--- NOTE | 2019-05-18 22:27 | PDOC CONSULTATION ---
Consultation Consult Date: 05/18/19 Provider Consulted: SANTIAGO ATKINSON JR History of Present Illness Admission Date/PCP: 05/17/19 22:09 NARESH PERALES MD History of Present Illness: DEVANG CORONEL is a 84 year old female who presented to the ER last week with a left humeral shaft fracture and was subsequently transferred to a rehab. After a few days in rehab, her family was concerned that she had continued LUE s welling and additionally, 2-day history or AMS. She has a history of Alzheimer's dementia but her daughter reported acute changes. They explain that there was also some misunderstanding of her dose of warfarin and she was getting extra [facility] her [facility] after her [facility], that likely lead to her increased swelling and ecchymosis. Due to her mental condition, she is unable to contribute to her history. She also is admitted with a complicated UTI. Past Medical History Cardiac Medical History: Reports: Atrial Fibrillation - Chronic, Coronary Artery Disease, Hyperlipidema, Hypertension Denies: Congestive Heart Failure Pulmonary Medical History: Reports: Chronic Obstructive Pulmonary Disease (COPD) Denies: Asthma EENT Medical History: Denies: Ears - Hearing aids, Nose - Nasal polyps Neurological Medical History: Denies: Hemorrhagic CVA, Ischemic CVA, Seizures Endocrine Medical History: Reports: Diabetes Mellitus Type 2 Denies: Diabetes Mellitus Type 1, Hyperthyroidism, Hypothyroidism, Obesity Renal/ Medical History: Denies: Chronic Kidney Disease, Nephrolithiasis Malignancy Medical History: Reports: None GI Medical History: Reports: Gastroesophageal Reflux Disease Denies: Cirrhosis, Crohn's Disease, Hepatitis, Peptic Ulcer Disease, Ulcerative Colitis Musculoskeltal Medical History: Denies: Arthritis, Gout Skin Medical History: Denies: Eczema, Psoriasis Psychiatric Medical History: Denies: Alcohol Dependency, Depression, Substance Abuse, Tobacco Dependency Traumatic Medical History: Reports: None Hematology: Reports: 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 Denies: Anemia Infectious Medical History: Reports: None Past Surgical History Past Surgical History: Reports: Cholecystectomy, Hysterectomy Social History Lives with: [facility] Smoking Status: Never Smoker Electronic Cigarette use?: No Frequency of Alcohol Use: None Hx Recreational Drug Use: No Drugs: None Hx Prescription Drug Abuse: No - Advance Directive Resuscitation Status: Full Code Family History Family History: Reviewed & Not Pertinent Parental Family History Reviewed: No Children Family History Reviewed: NA Sibling(s) Family History Reviewed.: NA Medication/Allergy Home Medications: Aspirin [Adult Low Dose Aspirin EC] 81 mg PO DAILY 05/18/19 Atorvastatin Calcium [Lipitor 20 mg Tablet] 20 mg PO QHS 05/18/19 Diltiazem HCl [Cardizem Cd 120 mg Capsule] 1 cap.sr PO Q12 05/18/19 Ergocalciferol (Vitamin D2) [Vitamin D2] 50,000 unit PO WE@1000 05/18/19 Furosemide [Lasix 20 mg Tablet] 20 mg PO DAILY 05/18/19 Hydrocodone/Acetaminophen [[place] 5-325 Tablet] 1 each PO Q6HP PRN 05/18/19 Levothyroxine Sodium [Synthroid 0.025 mg Tablet] 0.025 mg PO DAILY 05/18/19 Metformin HCl 500 mg PO QHS 05/18/19 Metoprolol Succinate [Toprol Xl 50 mg Tab.sr] 50 mg PO BID 05/18/19 Multivitamin [Multiple Vitamins] 1 each PO DAILY 05/18/19 Omeprazole 20 mg PO DAILY 05/18/19 Potassium Chloride [Klor-Con 10 Meq Capsule ER] 10 meq PO Q12 05/18/19 Rivastigmine [Exelon 4.6 Mg/24 Hr Transdermal Patch] 1 each TD DAILY 05/18/19 Ropinirole HCl [Requip 0.25 Mg Tablet] 0.25 mg PO QHS 05/18/19 Warfarin Sodium [Coumadin 5 mg Tablet] 5 mg PO DAILY 05/18/19 Allergies/Adverse Reactions: [place] And Derivatives Allergy (Unknown, Verified 07/28/18 13:19) meperidine HCl [From Demerol] Allergy (Unknown, Verified 07/28/18 13:19) Sulfa (Sulfonamide Antibiotics) Allergy (Unknown, Verified 07/28/18 13:19) morphine [Morphine] Adverse Reaction (Intermediate, Verified 07/28/18 13:19) Vomiting amoxicillin trihydrate [From Augmentin] Adverse Reaction (Unknown, Verified 03/07 13:19) Potassium Clavulanate * [From Augmentin] Adverse Reaction (Unknown, Verified 07/28/18 13:19) Review of Systems ROS unobtainable: Due to mental status Physical Exam Vital Signs: Temp Pulse Resp BP Pulse Ox 98.1 F 79 18 139/51 H 99 05/18/19 19:41 05/18/19 19:41 05/18/19 19:41 05/18/19 19:41 05/18/19 19:41 Intake & Output 05/17/19 05/18/19 05/19/19 06:59 06:59 06:59 Intake Total 550 1410 Output Total 175 600 Balance 375 810 Weight 74.9 kg Physical Exam: General appearance: PRESENT: no acute distress, sleeping in and out, well- nourished Head exam: PRESENT: atraumatic, normocephalic Eye exam: PRESENT: EOMI Ear exam: PRESENT: normal external ear exam Mouth exam: PRESENT: neck supple Neck exam: ABSENT: tracheal deviation Respiratory exam: PRESENT: symmetrical, unlabored. ABSENT: accessory muscle use, wheezes Pulses: PRESENT: normal radial pulses, normal dorsalis pedis pulse Vascular exam: PRESENT: normal capillary refill GI/Abdominal exam: ABSENT: distended, firm Extremities exam: PRESENT: full ROM of right shoulders, right elbow, wrists, knees, hips and ankles without pain Musculoskeletal exam: PRESENT: full ROM, normal inspection of all 4 extremities aside from that noted below. Neurological exam: PRESENT: alert, awake, oriented to person, oriented to place, oriented to time Psychiatric exam: PRESENT: appropriate affect. ABSENT: agitated Focused psych exam: ABSENT: catatonic, unable to answer detailed questions Skin exam: PRESENT: intact. ABSENT: dry All as above aside from that noted in the HPI and the following: LUE Compartments soft, skin intact Severe swelling to the entire UE, skin very ecchymotic but intact Hand swollen, limiting motion Grossly NVI No TTP to elbow and distal, pain with any motion of humerus, humerus in Mar type brace. Results Laboratory Results: 05/18/19 15:50 05/18/19 04:45 05/18/19 05/18/19 05/18/19 04:45 04:45 04:45 WBC 9.5 RBC 3.98 Hgb 11.7 L Hct 34.4 L MCV 86 MCH 29.5 MCHC 34.1 RDW 13.9 Plt Count 329 Sodium 139.5 Potassium 4.0 Chloride 105 Carbon Dioxide 26 Anion Gap 9 BUN 12 Creatinine 0.73 Est GFR ( Amer) > 60 Glucose 93 Calcium 9.0 Magnesium 2.1 TSH 3.63 05/18/19 15:50 WBC 9.7 RBC 3.74 Hgb 11.1 L Hct 32.8 L MCV 88 MCH 29.7 MCHC 33.8 RDW 13.8 Plt Count 338 Sodium Potassium Chloride Carbon Dioxide Anion Gap BUN Creatinine Est GFR ( Amer) Glucose Calcium Magnesium TSH 05/17/19 18:58 Troponin I < 0.012 Impressions: Humerus X-Ray 05/17/19 00:00 IMPRESSION: Re- demonstration of a moderately displaced oblique fracture th rough the mid humeral diaphysis. No acute findings. Chest X-Ray 05/17/19 17:53 IMPRESSION: No evidence of acute cardiopulmonary abnormality. Head CT 05/17/19 20:34 IMPRESSION: No acute intracranial abnormality is identified. Fluid in the left maxillary sinus which may reflect acute sinusitis Generalized atrophy with microvascular ischemic changes. Assessment & Plan - Diagnosis (1) Humeral shaft fracture Plan: Keep elevated as best as possible Maintain brace, it needs to be positioned appropriately (tends to slide down) Sling for comfort when upright. Encourage hand exercises
[2019-05-19] MEDS: ACETAMINOPHEN 325 MG TABLET PO PRN ×2 (06:01→17:43)
[2019-05-19] MEDS: LEVOTHYROXINE SODIUM 0.05 MG TABLET PO SCH (06:01)
[2019-05-19] MEDS: MEROPENEM 500 MG in NORMAL SALINE 50 ML IV SCH ×3 (06:01→21:45)
[2019-05-19 06:43] LABS: INTERNATIONAL RATION (INR) 2.33
[2019-05-19] MEDS ORDERED: (PENDING PHARMACY ID) (Warfarin Sodium 5 MG) PO SCH (10:00)
[2019-05-19] MEDS ORDERED: LEVOTHYROXINE SODIUM 0.025 MG TABLET PO SCH (10:00)
[2019-05-19] MEDS: ASPIRIN 81 MG TABLET, ENT COATED PO SCH (10:43)
[2019-05-19] MEDS: DOCUSATE SODIUM 100 MG CAPSULE PO SCH ×2 (10:43→17:43)
[2019-05-19] MEDS: FUROSEMIDE 20 MG TABLET PO SCH (10:44)
[2019-05-19] MEDS: POTASSIUM CHLORIDE 10 MEQ TABLET.ER PO SCH (10:44)
[2019-05-19] MEDS: FAMOTIDINE 20 MG TABLET PO SCH ×2 (10:45→21:45)
--- NOTE | 2019-05-19 11:02 | PDOC PROGRESS REPORT ---
Subjective Progress Note for:: 05/19/19 Reason For Visit: ALTERED MENTAL STATUS 05/19/2019 She was admitted with altered mental status possibly secondary to UTI or medication error. Patient is definitely more alert now than yesterday. Physical Exam Vital Signs: Temp Pulse Resp BP Pulse Ox 97.4 F 89 15 135/69 H 98 05/19/19 07:30 05/19/19 07:30 05/19/19 07:30 05/19/19 07:30 05/19/19 07:30 Intake & Output 05/18/19 05/19/19 05/20/19 06:59 06:59 06:59 Intake Total 550 2510 Output Total 175 900 Balance 375 1610 Weight 74.9 kg 75.1 kg General appearance: PRESENT: no acute distress, other - Patient sleeping but arouses easily Respiratory exam: PRESENT: clear to auscultation bianca. ABSENT: rales, rhonchi, wheezes Cardiovascular exam: PRESENT: RRR. ABSENT: diastolic murmur, rubs, systolic murmur Extremities exam: PRESENT: +1 edema, other - Less edema in the left upper extremity also less discoloration She does not complain of any pain at her fracture site as long as it is immobile Results Laboratory Results: 05/18/19 15:50 05/18/19 04:45 05/18/19 05/18/19 05/19/19 04:45 15:50 06:18 WBC 9.7 RBC 3.74 Hgb 11.1 L Hct 32.8 L MCV 88 MCH 29.7 MCHC 33.8 RDW 13.8 Plt Count 338 Magnesium 2.1 TSH 3.63 05/17/19 18:13 Catheterized Urine Urine Culture - Final Klebsiella Pneumoniae 05/17/19 18:58 Troponin I < 0.012 Impressions: Humerus X-Ray 05/17/19 00:00 IMPRESSION: Re- demonstration of a moderately displaced oblique fracture through the mid humeral diaphysis. No acute findings. Chest X-Ray 05/17/19 17:53 IMPRESSION: No evidence of acute cardiopulmonary abnormality. Head CT 05/17/19 20:34 IMPRESSION: No acute intracranial abnormality is identified. Fluid in the left maxillary sinus which may reflect acute sinusitis Generalized atrophy with microvascular ischemic changes. 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 Is this a current diagnosis for this admission?: Yes (4) Diabetes mellitus type 2 in nonobese Is this a current diagnosis for this admission?: Yes (5) Hypertension Qualifiers: Hypertension type: essential hypertension Qualified Code(s): I10 - Essential (primary) hypertension Is this a current diagnosis for this admission?: Yes (6) Urinary tract infection Qualifiers: Urinary tract infection type: acute cystitis Hematuria presence: without hematuria Qualified Code(s): N30.00 - Acute cystitis without hematuria Is this a current diagnosis for this admission?: Yes (7) Atrial fibrillation Qualifiers: Atrial fibrillation type: chronic Is this a current diagnosis for this admission?: Yes (8) Dementia Qualifiers: Dementia type: unspecified type Is this a current diagnosis for this admission?: Yes (9) Fracture of shaft of left humerus Qualifiers: Encounter type: initial encounter Fracture type: closed Fracture morphology: oblique Fracture alignment: displaced Qualified Code(s): S42.332A - Displaced oblique fracture of shaft of humerus, left arm, initial encounter for closed fracture Is this a current diagnosis for this admission?: Yes - Plan Summary Summary: Patient was admitted to the medical floor and will receive routine supportive and symptomatic cares. She will be treated with meropenem 500 mg IV every 8 hours initially to cover for ESBL E. coli pending the results of her urinary tract infection. She will be maintained with IV fluids and will be encouraged to take a cardiac diet with diabetic and warfarin restrictions. Her mental status will be followed closely throughout her hospital stay. She will receive Ativan 1 mg IV every 4 hours as needed for agitation or anxiety. A CBC, basic metabolic profile and magnesium level be obtained in the morning. She will be continued on her routine medications as appropriate to manage her chronic medical illnesses. Daily INRs will be obtained. Before meals and at bedtime Accu-Cheks will be obtained with a sliding scale insulin for hyperglycemia and a hypoglycemic protocol in place. 05/18/2019 Spent a lot of time talking to the family about her medications and the correct dosing. Make these adjustments on her med rec Patient is more awake and alert this morning than yesterday.. White count on admission was 10.2 today is 9.5 X-ray on admission is normal He has scan shows no sign of acute neurologic disease She has no history or symptoms of sinusitis INR is 2.5 Will hydrate patient and continue IV antibiotics, urine culture and sensitivity Will have orthopedics see the patient concerning her midshaft left humeral fracture which occurred about 8 days ago. Patient's altered mental status is probably on the basis of her urinary tract infection and or her medication discrepancy 05/19/2019 Is medically stable INR this morning 2.33 vital signs are stable, glucose between 90 and 100 Is growing out Klebsiella in her culture she is currently on meropenem I am withholding any medications which may make her lethargic Fully we have the correct doses her chart now for when she is discharged Pubic is made recommendations which we will follow concerning her fractured humerus - Time Time Spent with patient: 25-34 minutes
[2019-05-19] MEDS: RIVASTIGMINE 4.6 MG/24 HR PATCH.TD24 TD SCH (11:13)
--- NOTE | 2019-05-19 14:37 | PDOC PROGRESS REPORT ---
Subjective Progress Note for:: 05/19/19 Subjective:: She is doing well today. The brace is stayed in place for a position that yesterday. She has no new complaints at this time. Appears comfortable in bed Reason For Visit: ALTERED MENTAL STATUS Physical Exam Vital Signs: Temp Pulse Resp BP Pulse Ox 98.1 F 75 15 105/47 L 99 05/19/19 11:21 05/19/19 11:21 05/19/19 11:21 05/19/19 11:21 05/19/19 11:21 Intake & Output 05/18/19 05/19/19 05/20/19 06:59 06:59 06:59 Intake Total 550 2510 360 Output Total 175 900 Balance 375 1610 360 Weight 74.9 kg 75.1 kg Physical Exam: General appearance: PRESENT: no acute distress, sleeping in and out, well- nourished Head exam: PRESENT: atraumatic, normocephalic Eye exam: PRESENT: EOMI Ear exam: PRESENT: normal external ear exam Mouth exam: PRESENT: neck supple Neck exam: ABSENT: tracheal deviation Respiratory exam: PRESENT: symmetrical, unlabored. ABSENT: accessory muscle use, wheezes Pulses: PRESENT: normal radial pulses, normal dorsalis pedis pulse Vascular exam: PRESENT: normal capillary refill GI/Abdominal exam: ABSENT: distended, firm Extremities exam: PRESENT: full ROM of right shoulders, right elbow, wrists, knees, hips and ankles without pain Musculoskeletal exam: PRESENT: full ROM, normal inspection of all 4 extremities aside from that noted below. Neurological exam: PRESENT: alert, awake, oriented to person, oriented to place, oriented to time Psychiatric exam: PRESENT: appropriate affect. ABSENT: agitated Focused psych exam: ABSENT: catatonic, unable to answer detailed questions Skin exam: PRESENT: intact. ABSENT: dry All as above aside from that noted in the HPI and the following: LUE Compartments soft, skin intact Severe swelling to the entire UE, skin very ecchymotic but intact Hand swollen, limiting motion Grossly NVI No TTP to elbow and distal, pain with any motion of humerus, humerus in Mar type brace. -No major change in swelling overnight Results Laboratory Results: 05/18/19 15:50 05/18/19 04:45 05/18/19 05/18/19 05/19/19 04:45 15:50 06:18 WBC 9.7 RBC 3.74 Hgb 11.1 L Hct 32.8 L MCV 88 MCH 29.7 MCHC 33.8 RDW 13.8 Plt Count 338 Magnesium 2.1 TSH 3.63 05/17/19 18:13 Catheterized Urine Urine Culture - Final Klebsiella Pneumoniae 05/17/19 18:58 Troponin I < 0.012 Impressions: Humerus X-Ray 05/17/19 00:00 IMPRESSION: Re- demonstration of a moderately displaced oblique fracture through the mid humeral diaphysis. No acute findings. Chest X-Ray 05/17/19 17:53 IMPRESSION: No evidence of acute cardiopulmonary abnormality. Head CT 05/17/19 20:34 IMPRESSION: No acute intracranial abnormality is identified. Fluid in the left maxillary sinus which may reflect acute sinusitis Generalized atrophy with microvascular ischemic changes. Assessment & Plan - Diagnosis (1) Humeral shaft fracture Is this a current diagnosis for this admission?: Yes Plan: Continue brace utilization -Follow with me in 10 to 14 days for further evaluation and a subsequent x-ray -She needs to keep her arm up on approximately 3 or more pillows to help decrease the swelling. -Consider occupational therapy consult for hand therapy and to help decrease swelling with range of motion of the left wrist and fingers - Time Time Spent with patient: Less than 15 minutes
[2019-05-19] MEDS: METFORMIN HCL 500 MG TABLET PO SCH (16:30)
[2019-05-19] MEDS: WARFARIN SODIUM 5 MG TABLET PO SCH (21:45)
[2019-05-19] MEDS: ATORVASTATIN CALCIUM 20 MG TABLET PO SCH (21:45)
[2019-05-19] MEDS: ROPINIROLE HCL 0.25 MG TABLET PO SCH (21:45)
[2019-05-20 05:17] LABS: INTERNATIONAL RATION (INR) 2.32; PROTHROMBIN TIME 25.9 SEC (11.4-15.4)
[2019-05-20] MEDS: MEROPENEM 500 MG in NORMAL SALINE 50 ML IV SCH ×3 (06:28→21:45)
[2019-05-20] MEDS: LEVOTHYROXINE SODIUM 0.05 MG TABLET PO SCH (06:29)
[2019-05-20] MEDS: METFORMIN HCL 500 MG TABLET PO SCH ×2 (08:59→17:12)
--- NOTE | 2019-05-20 09:04 | PDOC PROGRESS REPORT ---
Subjective Progress Note for:: 05/20/19 Reason For Visit: ALTERED MENTAL STATUS 05/20/2019 Patient is much more awake and alert today, clinically significantly improved Physical Exam Vital Signs: Temp Pulse Resp BP Pulse Ox 98.1 F 86 14 129/76 H 98 05/20/19 07:23 05/20/19 07:23 05/20/19 07:23 05/20/19 07:23 05/20/19 07:23 Intake & Output 05/19/19 05/20/19 05/21/19 06:59 06:59 06:59 Intake Total 2510 700 50 Output Total 900 Balance 1610 700 50 Weight 75.1 kg 71.2 kg General appearance: PRESENT: no acute distress, other - She is sleeping but arouses very easily to light voice Respiratory exam: PRESENT: clear to auscultation bianca. ABSENT: rales, rhonchi, wheezes Cardiovascular exam: PRESENT: RRR. ABSENT: diastolic murmur, rubs, systolic murmur Neurological exam: PRESENT: alert, awake, oriented to person, oriented to place, oriented to time, oriented to situation, CN II-XII grossly intact, other - O riented X4. ABSENT: motor sensory deficit Psychiatric exam: PRESENT: appropriate affect, normal mood, other - Affect is appropriate. ABSENT: homicidal ideation, suicidal ideation Results Laboratory Results: 05/18/19 15:50 05/18/19 04:45 05/20/19 04:33 Magnesium 2.1 05/17/19 18:13 Catheterized Urine Urine Culture - Final Klebsiella Pneumoniae 05/17/19 18:58 Troponin I < 0.012 Impressions: Humerus X-Ray 05/17/19 00:00 IMPRESSION: Re- demonstration of a moderately displaced oblique fracture through the mid humeral diaphysis. No acute findings. Chest X-Ray 05/17/19 17:53 IMPRESSION: No evidence of acute cardiopulmonary abnormality. Head CT 05/17/19 20:34 IMPRESSION: No acute intracranial abnormality is identified. Fluid in the left maxillary sinus which may reflect acute sinusitis Generalized atrophy with microvascular ischemic changes. 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 Is this a current diagnosis for this admission?: Yes (4) Diabetes mellitus type 2 in nonobese Is this a current diagnosis for this admission?: Yes (5) Hypertension Qualifiers: Hypertension type: essential hypertension Qualified Code(s): I10 - Essential (primary) hypertension Is this a current diagnosis for this admission?: Yes (6) Urinary tract infection Qualifiers: Urinary tract infection type: acute cystitis Hematuria presence: without hematuria Qualified Code(s): N30.00 - Acute cystitis without hematuria Is this a current diagnosis for this admission?: Yes (7) Atrial fibrillation Qualifiers: Atrial fibrillation type: chronic Is this a current diagnosis for this admission?: Yes (8) Dementia Qualifiers: Dementia type: unspecified type Is this a current diagnosis for this admission?: Yes (9) Fracture of shaft of left humerus Qualifiers: Encounter type: initial encounter Fracture type: closed Fracture morphology: oblique Fracture alignment: displaced Qualified Code(s): S42.332A - Displaced oblique fracture of shaft of humerus, left arm, initial encounter for closed fracture Is this a current diagnosis for this admission?: Yes - Plan Summary Summary: Patient was admitted to the medical floor and will receive routine supportive and symptomatic cares. She will be treated with meropenem 500 mg IV every 8 hours initially to cover for ESBL E. coli pending the results of her urinary tract infection. She will be maintained with IV fluids and will be encouraged to take a cardiac diet with diabetic and warfarin restrictions. Her mental status will be followed closely throughout her hospital stay. She will receive Ativan 1 mg IV every 4 hours as needed for agitation or anxiety. A CBC, basic metabolic profile and magnesium level be obtained in the morning. She will be continued on her routine medications as appropriate to manage her chronic medical illnesses. Daily INRs will be obtained. Before meals and at bedtime Accu-Cheks will be obtained with a sliding scale insulin for hyperglycemia and a hypoglycemic protocol in place. 05/18/2019 Spent a lot of time talking to the family about her medications and the correct dosing. Make these adjustments on her med rec Patient is more awake and alert this morning than yesterday.. White count on admission was 10.2 today is 9.5 X-ray on admission is normal He has scan shows no sign of acute neurologic disease She has no history or symptoms of sinusitis INR is 2.5 Will hydrate patient and continue IV antibiotics, urine culture and sensitivity Will have orthopedics see the patient concerning her midshaft left humeral fracture which occurred about 8 days ago. Patient's altered mental status is probably on the basis of her urinary tract infection and or her medication discrepancy 05/19/2019 Is medically stable INR this morning 2.33 vital signs are stable, glucose between 90 and 100 Is growing out Klebsiella in her culture she is currently on meropenem I am withholding any medications which may make her lethargic Fully we have the correct doses her chart now for when she is discharged Pubic is made recommendations which we will follow concerning her fractured humerus 05/20/2019 Vital signs are stable, heart rate is up slightly but this is because I am hold ing some of her medications averaging about 90 rate Blood pressure 129/76 her sats are 98% on 3 L nasal cannula As mentioned above I am slowly reintroducing her medications will be discharged home on. Family has a good list of the current doses. As I get that copy again today I will try to dictate into the chart her current meds to be discharged home on INR is stable at 2.3, Coumadin is 5 mg nightly This is day 3 of the meropenem, final urine culture is Klebsiella Discharge planning is working with her placement issues, possibly going back to [facility], based on family's wishes This is #1 dementia #2 altered mental status #3 urinary tract infection #4 medication error - Time Time Spent with patient: 25-34 minutes
[2019-05-20] MEDS: POTASSIUM CHLORIDE 10 MEQ TABLET.ER PO SCH (11:17)
[2019-05-20] MEDS: FUROSEMIDE 20 MG TABLET PO SCH (11:17)
[2019-05-20] MEDS: FAMOTIDINE 20 MG TABLET PO SCH ×2 (11:19→21:46)
[2019-05-20] MEDS: DOCUSATE SODIUM 100 MG CAPSULE PO SCH ×2 (11:19→17:11)
[2019-05-20] MEDS: ASPIRIN 81 MG TABLET, ENT COATED PO SCH (11:19)
[2019-05-20] MEDS: RIVASTIGMINE 4.6 MG/24 HR PATCH.TD24 TD SCH (11:20)
[2019-05-20] MEDS: METOPROLOL SUCCINATE 25 MG TAB.SR.24H PO SCH ×2 (11:22→21:48)
[2019-05-20] MEDS: ACETAMINOPHEN 325 MG TABLET PO PRN ×2 (11:27→17:11)
[2019-05-20] MEDS: ROPINIROLE HCL 0.25 MG TABLET PO SCH (21:46)
[2019-05-20] MEDS: ATORVASTATIN CALCIUM 20 MG TABLET PO SCH (21:46)
[2019-05-20] MEDS: WARFARIN SODIUM 5 MG TABLET PO SCH (21:47)
[2019-05-20] MEDS ORDERED: DIGOXIN INJ 0.5 MG/2 ML AMPULE IV ONE (21:53)
[2019-05-21] MEDS ORDERED: DIGOXIN INJ 0.5 MG/2 ML AMPULE ONE (00:02)
[2019-05-21] MEDS: DILTIAZEM HCL 60 MG TABLET PO SCH ×4 (00:39→22:00)
[2019-05-21] MEDS: LEVOTHYROXINE SODIUM 0.05 MG TABLET PO SCH (05:59)
[2019-05-21] MEDS: MEROPENEM 500 MG in NORMAL SALINE 50 ML IV SCH ×2 (06:02→17:40)
[2019-05-21 06:33] LABS: PROTHROMBIN TIME 25.7 SEC (11.4-15.4)
[2019-05-21] MEDS: METFORMIN HCL 500 MG TABLET PO SCH ×2 (08:02→17:42)
[2019-05-21] MEDS: FUROSEMIDE 20 MG TABLET PO SCH (09:49)
[2019-05-21] MEDS: FAMOTIDINE 20 MG TABLET PO SCH ×2 (09:49→22:01)
[2019-05-21] MEDS: ASPIRIN 81 MG TABLET, ENT COATED PO SCH (09:50)
[2019-05-21] MEDS: METOPROLOL SUCCINATE 25 MG TAB.SR.24H PO SCH ×2 (09:50→22:02)
[2019-05-21] MEDS: POTASSIUM CHLORIDE 10 MEQ TABLET.ER PO SCH (09:53)
[2019-05-21] MEDS: DOCUSATE SODIUM 100 MG CAPSULE PO SCH ×2 (09:53→17:43)
[2019-05-21] MEDS: RIVASTIGMINE 4.6 MG/24 HR PATCH.TD24 TD SCH (09:54)
[2019-05-21] MEDS ORDERED: DILTIAZEM HCL 60 MG TABLET PO SCH (10:00)
[2019-05-21 13:06] LABS: APPEARANCE,URINE CLEAR; BILIRUBIN,URINE NEGATIVE (NEGATIVE); COLOR,URINE YELLOW; GLUCOSE, URINE NEGATIVE (NEGATIVE); KETONES,URINE NEGATIVE (NEGATIVE); LEUKOCYTE ESTERASE,URINE NEGATIVE (NEGATIVE); NITRITE,URINE NEGATIVE (NEGATIVE); PROTEIN,URINE NEGATIVE (NEGATIVE)
--- NOTE | 2019-05-21 18:55 | PDOC PROGRESS REPORT ---
Subjective Progress Note for:: 05/21/19 Subjective:: This is an 84-year-old female with a past medical history of Alzheimer's dementia, history of ESBL UTIs and chronic atrial fibrillation who was brought in due to confusion. Patient was admitted for encephalopathy secondary to urinary tract infection. Patient started on IV meropenem. She did show significant clinical improvement. No acute event overnight. Upon encounter patient is oriented to person and place. She is also able to identify the month. She denies acute complaints. Urine culture grew Klebsiella sensitive to cephalosporins (not ESBL). We will switch meropenem to Rocephin. Patient is medically stable for discharge to SNF. Reason For Visit: ALTERED MENTAL STATUS Physical Exam Vital Signs: Temp Pulse Resp BP Pulse Ox 98.1 F 84 25 H 134/64 H 98 05/21/19 16:00 05/21/19 16:00 05/21/19 16:00 05/21/19 16:00 05/21/19 16:00 Intake & Output 05/20/19 05/21/19 05/22/19 06:59 06:59 06:59 Intake Total 700 880 340 Balance 700 880 340 Weight 156 lb 15.506 oz 158 lb 4.67 oz General appearance: PRESENT: no acute distress, well-developed, well-nourished Head exam: PRESENT: atraumatic, normocephalic Eye exam: PRESENT: conjunctiva pink, EOMI, PERRLA. ABSENT: scleral icterus Ear exam: PRESENT: normal external ear exam Mouth exam: PRESENT: moist, tongue midline Neck exam: ABSENT: carotid bruit, JVD, lymphadenopathy, thyromegaly Respiratory exam: PRESENT: clear to auscultation bianca. ABSENT: rales, rhonchi, wheezes Cardiovascular exam: PRESENT: RRR. ABSENT: diastolic murmur, rubs, systolic murmur Pulses: PRESENT: normal dorsalis pedis pul GI/Abdominal exam: PRESENT: normal bowel sounds, soft. ABSENT: distended, guarding, mass, organolmegaly, rebound, tenderness Rectal exam: PRESENT: deferred Extremities exam: PRESENT: full ROM. ABSENT: calf tenderness, clubbing, pedal edema Neurological exam: PRESENT: alert, awake, oriented to person, oriented to place, CN II-XII grossly intact. ABSENT: motor sensory deficit Results Laboratory Results: 05/18/19 15:50 11/30/19 04:45 05/21/19 09:29 Urine Color YELLOW Urine Appearance CLEAR Urine pH 7.0 Ur Specific [place] 1.010 Urine Protein NEGATIVE Urine Glucose (UA) NEGATIVE Urine Ketones NEGATIVE Urine Blood NEGATIVE Urine Nitrite NEGATIVE Ur Leukocyte Esterase NEGATIVE Urine WBC (Auto) 2 Urine RBC (Auto) 0 05/17/19 18:58 Troponin I < 0.012 Impressions: Humerus X-Ray 05/17/19 00:00 IMPRESSION: Re- demonstration of a moderately displaced oblique fracture through the mid humeral diaphysis. No acute findings. Chest X-Ray 05/17/19 17:53 IMPRESSION: No evidence of acute cardiopulmonary abnormality. Head CT 05/17/19 20:34 IMPRESSION: No acute intracranial abnormality is identified. Fluid in the left maxillary sinus which may reflect acute sinusitis Generalized atrophy with microvascular ischemic changes. Assessment and Plan - Diagnosis (1) Acute encephalopathy Is this a current diagnosis for this admission?: Yes Plan: Acute metabolic encephalopathy secondary to urinary tract infection in a patient with dementia. Patient appears to be now at her baseline mentation. (2) Urinary tract infection Qualifiers: Urinary tract infection type: acute cystitis Hematuria presence: without hematuria Qualified Code(s): N30.00 - Acute cystitis without hematuria Is this a current diagnosis for this admission?: Yes Plan: Urine culture grew Klebsiella sensitive to cephalosporins (not ESBL). Will switch meropenem to Rocephin. (3) Alzheimer's type dementia with late onset without behavioral disturbance Is this a current diagnosis for this admission?: Yes - Time Time Spent with patient: 25-34 minutes
[2019-05-21 19:03] LABS: HEMATOCRIT 37.8 % (36.0-47.0); HEMOGLOBIN 12.9 g/dL (12.0-15.5); MEAN CORPUSCULAR HEMOGLOBIN 29.8 pg (27.0-33.4); MEAN CORPUSCULAR VOLUME 88 fl (80-97); PLATELET COUNT 396 10^3/uL (150-450); RED BLOOD COUNT 4.31 10^6/uL (3.72-5.28); RED CELL DISTRIBUTION WIDTH 14.5 % (11.5-14.0); WHITE BLOOD COUNT 11.3 10^3/uL (4.0-10.5)
[2019-05-21] MEDS: CEFTRIAXONE 1 GM/D5W RTU 1 GM/50 ML RTUPB IV SCH (19:45)
[2019-05-21] MEDS: ROPINIROLE HCL 0.25 MG TABLET PO SCH (22:01)
[2019-05-21] MEDS: WARFARIN SODIUM 5 MG TABLET PO SCH (22:01)
[2019-05-21] MEDS: ATORVASTATIN CALCIUM 20 MG TABLET PO SCH (22:01)
[2019-05-21] MEDS: ACETAMINOPHEN 325 MG TABLET PO PRN (22:02)
--- NOTE | 2019-05-21 22:16 | Progress Note ---
Provider Note Provider Note: CARDIOLOGY PROGRESS NOTE by Dr. Catrachita Ramos on 05/21/2019. SUBJECTIVE: The patient is more awake today and she is oriented to person and place. She states the pain in the left is much better and is well controlled. She continues to be in atrial fibrillation with controlled ventricular response. She denies any chest pain or discomfort. There is no bleeding on Coumadin. There is no TIA CVA symptoms. There is no ventricular arrhythmia seen on the monitor. PHYSICAL EXAMINATION: The patient is well-built in no acute distress. Selected Entries 05/21/19 16:00 Temperature 98.1 F Temperature Oral Source Pulse Rate 84 Respiratory 25 H Rate Blood Pressure 134/64 H [Right Upper Arm] Blood Pressure 87 Mean [Right Upper Arm] Blood Pressure Supine Position [Right Upper Arm] O2 Sat by Pulse 98 Oximetry Oxygen Delivery Nasal Cannula Method ( includes room air) Oxygen Flow 3 Rate HEAD: Is atraumatic normocephalic. EYES: Pupils are equal round regular reactive light accommodation. ENT is negative NECK: Supple. There is no JVD. Carotids are equal THERE IS NO BRUITS. THERE IS NO LYMPHADENOPATHY. Lungs: Trachea central. There is no accessory muscle respiration use. Lungs are clear to auscultation percussion. HEART: S1-S2 is heard there is no S3 gallop. There is no S4 gallop. There is S1 is of variable intensity. There is no rub. ABDOMEN: Is no hepatosplenomegaly bowel sounds well heard. EXTREMITIES: There is a soft cast in the site of the left humeral shaft. Femorals are diminished there is no femoral bruits leg pulses diminished. There is no pedal edema. There is no DVT or cellulitis. EPIC MANAGER: The patient is conscious awake she is oriented to person and place. There is no focal deficits. PSYCHIATRIC: The patient not with a full mental faculties and hence psychiatric exam not done. Labs- All tests 24 hr 05/21/19 05/21/19 05/21/19 05:38 06:08 09:29 WBC RBC Hgb Hct MCV MCH MCHC RDW Plt Count PT 25.7 H INR 2.30 POC Glucose 89 Urine Color YELLOW Urine Appearance CLEAR Urine pH 7.0 Ur Specific [place] 1.010 Urine Protein NEGATIVE Urine Glucose (UA) NEGATIVE Urine Ketones NEGATIVE Urine Blood NEGATIVE Urine Nitrite NEGATIVE Urine Bilirubin NEGATIVE Urine Urobilinogen 2.0 H Ur Leukocyte Esterase NEGATIVE Urine WBC (Auto) 2 Urine RBC (Auto) 0 Squamous Epi Cells Auto 1 Urine Mucus (Auto) RARE Urine Ascorbic Acid NEGATIVE 05/21/19 05/21/19 05/21/19 10:52 15:57 18:54 WBC 11.3 H RBC 4.31 Hgb 12.9 Hct 37.8 MCV 88 MCH 29.8 MCHC 34.0 RDW 14.5 H Plt Count 396 PT INR POC Glucose 119 H 98 Urine Color Urine Appearance Urine pH Ur Specific [place] Urine Protein Urine Glucose (UA) Urine Ketones Urine Blood Urine Nitrite Urine Bilirubin Urine Urobilinogen Ur Leukocyte Esterase Urine WBC (Auto) Urine RBC (Auto) Squamous Epi Cells Auto Urine Mucus (Auto) Urine Ascorbic Acid 05/21/19 21:26 WBC RBC Hgb Hct MCV MCH MCHC RDW Plt Count PT INR POC Glucose 94 Urine Color Urine Appearance Urine pH Ur Specific [place] Urine Protein Urine Glucose (UA) Urine Ketones Urine Blood Urine Nitrite Urine Bilirubin Urine Urobilinogen Ur Leukocyte Esterase Urine WBC (Auto) Urine RBC (Auto) Squamous Epi Cells Auto Urine Mucus (Auto) Urine Ascorbic Acid Humerus X-Ray 05/17/19 00:00 IMPRESSION: Re- demonstration of a moderately displaced oblique fracture through the mid humeral diaphysis. No acute findings. Chest X-Ray 05/17/19 17:53 IMPRESSION: No evidence of acute cardiopulmonary abnormality. Head CT 05/17/19 20:34 IMPRESSION: No acute intracranial abnormality is identified. Fluid in the left maxillary sinus which may reflect acute sinusitis Generalized atrophy with microvascular ischemic changes. IMPRESSION/RECOMMENDATION: 1. Altered mental status most likely metabolic encephalopathy secondary to urinary tract infection. 2. Chronic atrial fibrillation. Continue current beta-sarah and Cardizem continue Coumadin. 3. Klebsiella urinary tract infection: Continue antibiotics. 4. Hypertension: Blood pressure well controlled. 5. Coronary artery disease remote history of RCA stent. No anginal symptoms. 6. History of fracture of left femoral shaft. Patient is being treated conservatively. Medications reviewed. Medical treatment and management plan and management regimen discussed with attending physician on the case. 40 minutes spent on this patient with more than 50% of time spent in direct patient care. Follow-up
[2019-05-22] MEDS: LEVOTHYROXINE SODIUM 0.05 MG TABLET PO SCH (05:32)
[2019-05-22] MEDS: DILTIAZEM HCL 60 MG TABLET PO SCH ×3 (05:33→21:09)
[2019-05-22 06:19] LABS: INTERNATIONAL RATION (INR) 2.39; PROTHROMBIN TIME 26.5 SEC (11.4-15.4)
[2019-05-22] MEDS: METFORMIN HCL 500 MG TABLET PO SCH ×2 (08:00→16:45)
[2019-05-22] MEDS: ACETAMINOPHEN 325 MG TABLET PO PRN (08:00)
[2019-05-22] MEDS: CEFTRIAXONE 1 GM/D5W RTU 1 GM/50 ML RTUPB IV SCH (10:33)
[2019-05-22] MEDS: FUROSEMIDE 20 MG TABLET PO SCH (10:34)
[2019-05-22] MEDS: POTASSIUM CHLORIDE 10 MEQ TABLET.ER PO SCH (10:35)
[2019-05-22] MEDS: FAMOTIDINE 20 MG TABLET PO SCH ×2 (10:35→21:08)
[2019-05-22] MEDS: METOPROLOL SUCCINATE 25 MG TAB.SR.24H PO SCH ×2 (10:35→21:09)
[2019-05-22] MEDS: ASPIRIN 81 MG TABLET, ENT COATED PO SCH (10:35)
[2019-05-22] MEDS: DOCUSATE SODIUM 100 MG CAPSULE PO SCH ×2 (10:37→18:09)
[2019-05-22] MEDS: RIVASTIGMINE 4.6 MG/24 HR PATCH.TD24 TD SCH (10:41)
[2019-05-22 11:30] LABS: ANION GAP 11 (5-19); BLOOD UREA NITROGEN 10 mg/dL (7-20); CALCIUM 9.8 mg/dL (8.4-10.2); CARBON DIOXIDE 25 mmol/L (22-30); CHLORIDE 110 mmol/L (98-107); GLUCOSE 106 mg/dL (75-110); POTASSIUM 4.1 mmol/L (3.6-5.0)
--- NOTE | 2019-05-22 11:41 | Progress Note ---
Provider Note Provider Note: [facility] cardiology PROGRESS NOTE by Dr. Catrachita Ramos on 05/22/2019. OBJECTIVE: The patient's daughter is at bedside. She finds the patient, and I agree that the patient is more confused today but pleasantly so. The patient seems to be in no acute distress though. The patient denies chest pain or discomfort. There is no shortness of breath. She continues to be in atrial fibrillation with controlled ventricular response. There is no bleeding on Coumadin. There is no TIA CVA symptoms. Her left arm swelling seems to be slightly less. PHYSICAL EXAMINATION: The patient appears to be well-built. Appears to be a stated age.. Is pleasantly confused. Selected Entries 05/22/19 12:00 Temperature 97.6 F Temperature Oral Source Pulse Rate 81 Respiratory 21 H Rate Blood Pressure 125/57 L [Right Upper Arm] Blood Pressure 79 Mean [Right Upper Arm] Blood Pressure Supine Position [Right Upper Arm] O2 Sat by Pulse 92 Oximetry Oxygen Delivery Room Air Method ( includes room air) HEAD: Is atraumatic normocephalic. EYES: Pupils are equal round regular reactive light accommodation. ENT is negative NECK: Supple. There is no JVD. Carotids are equal THERE IS NO BRUITS. THERE IS NO LYMPHADENOPATHY. Lungs: Trachea central. There is no accessory muscle respiration use. Lungs are clear to auscultation percussion. HEART: S1-S2 is heard there is no S3 gallop. There is no S4 gallop. There is S1 is of variable intensity. There is no rub. ABDOMEN: Is no hepatosplenomegaly bowel sounds well heard. EXTREMITIES: There is a soft cast in the site of the left humeral shaft. Femorals are diminished there is no femoral bruits leg pulses diminished. There is no pedal edema. There is no DVT or cellulitis. REPAIRER EVAPORATOR: The patient is conscious awake she is oriented to person and place. There is no focal deficits. PSYCHIATRIC: The patient not with a full mental faculties and hence psychiatric exam not done. Labs- All tests 24 hr 05/21/19 05/22/19 05/22/19 21:26 04:54 06:04 PT Cancelled INR Cancelled INR (Anticoag Therapy) Cancelled Sodium Potassium Chloride Carbon Dioxide Anion Gap BUN Creatinine Est GFR ( Amer) Est GFR (MDRD) Non-Af Glucose POC Glucose 94 94 Calcium 05/22/19 05/22/19 05/22/19 06:05 06:05 11:52 PT 26.5 H INR 2.39 INR (Anticoag Therapy) Sodium 145.6 H Potassium 4.1 Chloride 110 H Carbon Dioxide 25 Anion Gap 11 BUN 10 Creatinine 0.70 Est GFR ( Amer) > 60 Est GFR (MDRD) Non-Af > 60 Glucose 106 POC Glucose 131 H Calcium 9.8 05/22/19 05/22/19 16:23 16:40 PT INR INR (Anticoag Therapy) Sodium Potassium Chloride Carbon Dioxide Anion Gap BUN Creatinine Est GFR ( Amer) Est GFR (MDRD) Non-Af Glucose POC Glucose 89 145 H Calcium Humerus X-Ray 05/17/19 00:00 IMPRESSION: Re- demonstration of a moderately displaced oblique fracture through the mid humeral diaphysis. No acute findings. Chest X-Ray 05/17/19 17:53 IMPRESSION: No evidence of acute cardiopulmonary abnormality. Head CT 05/17/19 20:34 IMPRESSION: No acute intracranial abnormality is identified. Fluid in the left maxillary sinus which may reflect acute sinusitis Generalized atrophy with microvascular ischemic changes. IMPRESSION/RECOMMENDATION: 1. Altered mental status most likely metabolic encephalopathy secondary to urinary tract infection. 2. Chronic atrial fibrillation. Continue current beta-sarah and Cardizem continue Coumadin. 3. Klebsiella urinary tract infection: Continue antibiotics. 4. Hypertension: Blood pressure well controlled. 5. Coronary artery disease remote history of RCA stent. No anginal symptoms. 6. History of fracture of left femoral shaft. Patient is being treated conservatively. Medications reviewed. Medical treatment and management plan and management regimen discussed with attending physician on the case. Medical decision making is of moderate complexity. 40 minutes spent on this patient with more than 50% of time spent in direct patient care. Follow-up
--- NOTE | 2019-05-22 11:41 | PDOC PROGRESS REPORT ---
Subjective Progress Note for:: 05/22/19 Subjective:: She is doing well today. Her daughter is at the bedside. They explained that she is continuing to improve and her pain is well controlled. The daughter reports that the swelling has improved as was before her admission. Reason For Visit: ALTERED MENTAL STATUS Physical Exam Vital Signs: Temp Pulse Resp BP Pulse Ox 97.8 F 81 22 H 132/88 H 94 05/22/19 08:00 05/22/19 08:00 05/22/19 08:00 05/22/19 08:00 05/22/19 08:00 Intake & Output 05/21/19 05/22/19 05/23/19 06:59 06:59 06:59 Intake Total 880 1072 Balance 880 1072 Weight 71.8 kg 70.6 kg Physical Exam: General appearance: PRESENT: no acute distress, sleeping in and out, well- nourished Head exam: PRESENT: atraumatic, normocephalic Eye exam: PRESENT: EOMI Ear exam: PRESENT: normal external ear exam Mouth exam: PRESENT: neck supple Neck exam: ABSENT: tracheal deviation Respiratory exam: PRESENT: symmetrical, unlabored. ABSENT: accessory muscle use, wheezes Pulses: PRESENT: normal radial pulses, normal dorsalis pedis pulse Vascular exam: PRESENT: normal capillary refill GI/Abdominal exam: ABSENT: distended, firm Extremities exam: PRESENT: full ROM of right shoulders, right elbow, wrists, knees, hips and ankles without pain Musculoskeletal exam: PRESENT: full ROM, normal inspection of all 4 extremities aside from that noted below. Neurological exam: PRESENT: alert, awake, oriented to person, oriented to place, oriented to time Psychiatric exam: PRESENT: appropriate affect. ABSENT: agitated Focused psych exam: ABSENT: catatonic, unable to answer detailed questions Skin exam: PRESENT: intact. ABSENT: dry All as above aside from that noted in the HPI and the following: LUE Compartments soft, skin intact Severe swelling to the entire UE, skin very ecchymotic but intact Hand swollen, limiting motion Grossly NVI No TTP to elbow and distal, pain with any motion of humerus, humerus in Mar type brace. -Mild improvement in swelling and ecchymosis over prior exam. Results Laboratory Results: 05/21/19 18:54 05/22/19 06:05 1205/21/19 05/22/19 09:29 18:54 06:05 WBC 11.3 H RBC 4.31 Hgb 12.9 Hct 37.8 MCV 88 MCH 29.8 MCHC 34.0 RDW 14.5 H Plt Count 396 Sodium 145.6 H Potassium 4.1 Chloride 110 H Carbon Dioxide 25 Anion Gap 11 BUN 10 Creatinine 0.70 Est GFR ( Amer) > 60 Glucose 106 Calcium 9.8 Urine Color YELLOW Urine Appearance CLEAR Urine pH 7.0 Ur Specific [place] 1.010 Urine Protein NEGATIVE Urine Glucose (UA) NEGATIVE Urine Ketones NEGATIVE Urine Blood NEGATIVE Urine Nitrite NEGATIVE Ur Leukocyte Esterase NEGATIVE Urine WBC (Auto) 2 Urine RBC (Auto) 0 05/17/19 18:58 Troponin I < 0.012 Impressions: Humerus X-Ray 05/17/19 00:00 IMPRESSION: Re- demonstration of a moderately displaced oblique fracture through the mid humeral diaphysis. No acute findings. Chest X-Ray 05/17/19 17:53 IMPRESSION: No evidence of acute cardiopulmonary abnormality. Head CT 05/17/19 20:34 IMPRESSION: No acute intracranial abnormality is identified. Fluid in the left maxillary sinus which may reflect acute sinusitis Generalized atrophy with microvascular ischemic changes. Assessment & Plan - Diagnosis (1) Humeral shaft fracture Is this a current diagnosis for this admission?: Yes Plan: Recommend physical therapy to include elbow range of motion as well as hand and finger range of motion to maintain full range of motion of the fingers. Colleen elbow range of motion as this will aggravate the fracture site. Maintain splint, this needs to be kept as proximal as possible.\ -Keep arm elevated at the level of the heart if at all possible. -She can follow back in my clinic in 10 to 14 days for further evaluation and x- ray. Call [phone] for an appointment. - Time Time Spent with patient: Less than 15 minutes
--- NOTE | 2019-05-22 16:59 | PDOC PROGRESS REPORT ---
Subjective Progress Note for:: 05/22/19 Subjective:: This is an 84-year-old female with a past medical history of Alzheimer's dementia, history of ESBL UTIs and chronic atrial fibrillation who was brought in due to confusion. Patient was admitted for encephalopathy secondary to urinary tract infection. Patient started on IV meropenem. She did show significant clinical improvement. 05/21: Upon encounter patient is oriented to person and place. She is also able to identify the month. She denies acute complaints. Urine culture grew Klebsiella sensitive to cephalosporins (not ESBL). We will switch meropenem to Rocephin. Patient is medically stable for discharge to SNF. 05/22: She had transient episode of confusion earlier this morning consistent with . Otherwise, no acute event overnight. Upon encounter, she appears comfortable. Denies chest pain or shortness of breath. Awaiting placement to SNF. Reason For Visit: ALTERED MENTAL STATUS Physical Exam Vital Signs: Temp Pulse Resp BP Pulse Ox 97.6 F 81 21 H 125/57 L 92 05/22/19 12:00 05/22/19 12:00 05/22/19 12:00 05/22/19 12:00 05/22/19 12:00 Intake & Output 05/21/19 05/22/19 05/23/19 06:59 06:59 06:59 Intake Total 880 1072 Balance 880 1072 Weight 158 lb 4.67 oz 155 lb 10.342 oz General appearance: PRESENT: no acute distress, well-developed, well-nourished Head exam: PRESENT: atraumatic, normocephalic Eye exam: PRESENT: conjunctiva pink, EOMI, PERRLA. ABSENT: scleral icterus Ear exam: PRESENT: normal external ear exam Mouth exam: PRESENT: moist, tongue midline Neck exam: ABSENT: carotid bruit, JVD, lymphadenopathy, thyromegaly Respiratory exam: PRESENT: clear to auscultation bianca. ABSENT: rales, rhonchi, wheezes Cardiovascular exam: PRESENT: RRR. ABSENT: diastolic murmur, rubs, systolic murmur Pulses: PRESENT: normal dorsalis pedis pul GI/Abdominal exam: PRESENT: normal bowel sounds, soft. ABSENT: distended, guarding, mass, organolmegaly, rebound, tenderness Rectal exam: PRESENT: deferred Extremities exam: PRESENT: full ROM. ABSENT: calf tenderness, clubbing, pedal edema Neurological exam: PRESENT: alert, awake, oriented to person, CN II-XII grossly intact. ABSENT: motor sensory deficit Results Laboratory Results: 05/21/19 18:54 05/22/19 06:05 05/21/19 05/22/19 18:54 06:05 WBC 11.3 H RBC 4.31 Hgb 12.9 Hct 37.8 MCV 88 MCH 29.8 MCHC 34.0 RDW 14.5 H Plt Count 396 Sodium 145.6 H Potassium 4.1 Chloride 110 H Carbon Dioxide 25 Anion Gap 11 BUN 10 Creatinine 0.70 Est GFR ( Amer) > 60 Glucose 106 Calcium 9.8 05/17/19 18:58 Troponin I < 0.012 Impressions: Humerus X-Ray 05/17/19 00:00 IMPRESSION: Re- demonstration of a moderately displaced oblique fracture through the mid humeral diaphysis. No acute findings. Chest X-Ray 05/17/19 17:53 IMPRESSION: No evidence of acute cardiopulmonary abnormality. Head CT 05/17/19 20:34 IMPRESSION: No acute intracranial abnormality is identified. Fluid in the left maxillary sinus which may reflect acute sinusitis Generalized atrophy with microvascular ischemic changes. Assessment and Plan - Diagnosis (1) Acute encephalopathy Is this a current diagnosis for this admission?: Yes Plan: Acute metabolic encephalopathy secondary to urinary tract infection in a patient with dementia. Patient appears to be now at her baseline mentation. (2) Urinary tract infection Qualifiers: Urinary tract infection type: acute cystitis Hematuria presence: without hematuria Qualified Code(s): N30.00 - Acute cystitis without hematuria Is this a current diagnosis for this admission?: Yes Plan: Urine culture grew Klebsiella sensitive to cephalosporins (not ESBL). Will switch meropenem to Rocephin. 05/22: Continue Rocephin. 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
[2019-05-22] MEDS: ROPINIROLE HCL 0.25 MG TABLET PO SCH (21:08)
[2019-05-22] MEDS: WARFARIN SODIUM 5 MG TABLET PO SCH (21:10)
[2019-05-22] MEDS: ATORVASTATIN CALCIUM 20 MG TABLET PO SCH (21:10)
[2019-05-22 22:04] LABS: APPEARANCE,URINE CLEAR; BILIRUBIN,URINE NEGATIVE (NEGATIVE); COLOR,URINE YELLOW; GLUCOSE, URINE NEGATIVE (NEGATIVE); KETONES,URINE NEGATIVE (NEGATIVE); LEUKOCYTE ESTERASE,URINE TRACE (NEGATIVE); NITRITE,URINE NEGATIVE (NEGATIVE); PROTEIN,URINE NEGATIVE (NEGATIVE); URINE SPECIFIC GRAVITY 1.011; UROBILINOGEN,URINE NEGATIVE mg/dL (<2.0)
[2019-05-23] MEDS: LEVOTHYROXINE SODIUM 0.05 MG TABLET PO SCH (05:33)
[2019-05-23] MEDS: DILTIAZEM HCL 60 MG TABLET PO SCH ×3 (05:34→20:59)
[2019-05-23] MEDS: POTASSIUM CHLORIDE 10 MEQ TABLET.ER PO SCH (10:26)
[2019-05-23] MEDS: FUROSEMIDE 20 MG TABLET PO SCH (10:27)
[2019-05-23] MEDS: DOCUSATE SODIUM 100 MG CAPSULE PO SCH ×2 (10:27→18:01)
[2019-05-23] MEDS: METFORMIN HCL 500 MG TABLET PO SCH ×2 (10:28→16:40)
[2019-05-23] MEDS: ASPIRIN 81 MG TABLET, ENT COATED PO SCH (10:28)
[2019-05-23] MEDS: FAMOTIDINE 20 MG TABLET PO SCH ×2 (10:28→20:59)
[2019-05-23] MEDS: RIVASTIGMINE 4.6 MG/24 HR PATCH.TD24 TD SCH (10:29)
[2019-05-23] MEDS: METOPROLOL SUCCINATE 25 MG TAB.SR.24H PO SCH ×2 (10:30→21:01)
[2019-05-23] MEDS: CEFTRIAXONE 1 GM/D5W RTU 1 GM/50 ML RTUPB IV SCH (10:31)
--- NOTE | 2019-05-23 11:31 | RADIOLOGY REPORT (SQ) ---
EXAM DESCRIPTION: CT HEAD WITHOUT COMPLETED DATE/TIME: 05/23/2019 11:09 am REASON FOR STUDY: AMS COMPARISON: 05/17/2019 TECHNIQUE: Axial images acquired through the brain without intravenous contrast. Images reviewed wi th bone, brain and subdural windows. Additional sagittal and coronal reconstructions were generated. Images stored on PACS. All CT scanners at this facility use dose modulation, iterative reconstruction, and/or weight based d osing when appropriate to reduce radiation dose to as low as reasonably achievable (ALARA). [facility]: Dose Right [facility]: CareDose [facility]: Dose Right [facility]: Teradose 4D [facility]: Smart [employer] RADIATION DOSE: CT Rad equipment meets quality standard of care and radiation dose reduction techniq ues were employed. CTDIvol: 48.7 mGy. DLP: 930 mGy-cm. mGy. LIMITATIONS: None. FINDINGS: VENTRICLES: Prominent. CEREBRUM: No masses. No hemorrhage. No midline shift. Areas of low density in the white matter mos t likely due to chronic micro-vascular ischemic change. No evidence for acute infarction. CEREBELLUM: No masses. No hemorrhage. No alteration of density. No evidence for acute infarction. EXTRAAXIAL SPACES: Mild age-related involutional change. No fluid collections. No masses. ORBITS AND GLOBE: No intra- or extraconal masses. Normal contour of globe without masses. CALVARIUM: No fracture. PARANASAL SINUSES: Small amount of fluid is again noted in the left maxillary sinus stable from prior exam. SOFT TISSUES: No mass or hematoma. OTHER: No other significant finding. IMPRESSION: MILD CHRONIC CHANGES OF ATROPHY AND MICROVASCULAR ISCHEMIA. NO ACUTE PROCESS. EVIDENCE OF ACUTE STROKE: NO. TECHNICAL DOCUMENTATION: JOB ID: [id number] Quality ID # [id number]: Final reports with documentation of one or more dose reduction techniques (e.g., Au tomated exposure control, adjustment of the mA and/or kV according to patient size, use of iterative reconstruction technique) 2010 [employer]- All Rights Reserved Reading location - IP/workstation name: [email or web address]
[2019-05-23] MEDS: ACETAMINOPHEN 325 MG TABLET PO PRN (13:03)
[2019-05-23] MEDS: KETOROLAC TROMETHAMINE INJ/PF 30 MG/1 ML SDV IV PRN ×2 (14:08→21:10)
[2019-05-23] MEDS: LIDOCAINE 5% (700 MG) TRANSDERMAL ADH..PATCH TP SCH (15:04)
[2019-05-23] MEDS ORDERED: TRAMADOL HCL 50 MG TABLET PO PRN (15:48)
[2019-05-23] MEDS: METOPROLOL TARTRATE PF/INJ 5 MG/5 ML SDV IV PRN ×2 (16:42→23:09)
--- NOTE | 2019-05-23 17:01 | PDOC PROGRESS REPORT ---
Subjective Progress Note for:: 05/23/19 Subjective:: This is an 84-year-old female with a past medical history of Alzheimer's dementia, history of ESBL UTIs and chronic atrial fibrillation who was brought in due to confusion. Patient was admitted for encephalopathy secondary to urinary tract infection. Patient started on IV meropenem. She did show significant clinical improvement. 05/21: Upon encounter patient is oriented to person and place. She is also able to identify the month. She denies acute complaints. Urine culture grew Klebsiella sensitive to cephalosporins (not ESBL). We will switch meropenem to Rocephin. Patient is medically stable for discharge to SNF. 05/22: She had transient episode of confusion earlier this morning consistent with . Otherwise, no acute event overnight. Upon encounter, she appears comfortable. Denies chest pain or shortness of breath. Awaiting placement to SNF. 05/23: No acute event overnight. She complains of left shoulder and left arm pain this morning. Otherwise, he denies shortness of breath or chest pain. Patient is just awaiting placement to SNF. Reason For Visit: ALTERED MENTAL STATUS Physical Exam Vital Signs: Temp Pulse Resp BP Pulse Ox 97.3 F 121 H 18 152/93 H 93 05/23/19 16:48 05/23/19 16:48 05/23/19 16:48 05/23/19 16:48 05/23/19 16:48 Intake & Output 05/22/19 05/23/19 05/24/19 06:59 06:59 06:59 Intake Total 1072 110 316 Output Total 200 350 Balance 1072 -90 -34 Weight 155 lb 10.342 oz 154 lb 1.65 oz 154 lb 1.65 oz General appearance: PRESENT: no acute distress, well-developed, well-nourished Head exam: PRESENT: atraumatic, normocephalic Eye exam: PRESENT: conjunctiva pink, EOMI, PERRLA. ABSENT: scleral icterus Ear exam: PRESENT: normal external ear exam Mouth exam: PRESENT: moist, tongue midline Neck exam: ABSENT: carotid bruit, JVD, lymphadenopathy, thyromegaly Respiratory exam: PRESENT: clear to auscultation bianca. ABSENT: rales, rhonchi, wheezes Cardiovascular exam: PRESENT: RRR. ABSENT: diastolic murmur, rubs, systolic murmur Pulses: PRESENT: normal dorsalis pedis pul GI/Abdominal exam: PRESENT: normal bowel sounds, soft. ABSENT: distended, guarding, mass, organolmegaly, rebound, tenderness Rectal exam: PRESENT: deferred Neurological exam: PRESENT: awake, oriented to person, CN II-XII grossly intact. ABSENT: motor sensory deficit Results Laboratory Results: 05/21/19 18:54 05/22/19 06:05 05/22/19 21:40 Urine Color YELLOW Urine Appearance CLEAR Urine pH 6.0 Ur Specific [place] 1.011 Urine Protein NEGATIVE Urine Glucose (UA) NEGATIVE Urine Ketones NEGATIVE Urine Blood SMALL H Urine Nitrite NEGATIVE Ur Leukocyte Esterase TRACE H Urine WBC (Auto) 3 Urine RBC (Auto) 1 05/17/19 18:58 Troponin I < 0.012 Impressions: Humerus X-Ray 05/17/19 00:00 IMPRESSION: Re- demonstration of a moderately displaced oblique fracture through the mid humeral diaphysis. No acute findings. Chest X-Ray 05/17/19 17:53 IMPRESSION: No evidence of acute cardiopulmonary abnormality. Head CT 05/23/19 00:00 IMPRESSION: MILD CHRONIC CHANGES OF ATROPHY AND MICROVASCULAR ISCHEMIA. NO ACUTE PROCESS. EVIDENCE OF ACUTE STROKE: NO. Assessment and Plan - Diagnosis (1) Acute encephalopathy Is this a current diagnosis for this admission?: Yes Plan: Acute metabolic encephalopathy secondary to urinary tract infection in a patient with dementia. Patient appears to be now at her baseline mentation but she does have waxing and waning episodes of confusion consistent with sundowning. (2) Urinary tract infection Qualifiers: Urinary tract infection type: acute cystitis Hematuria presence: without h ematuria Qualified Code(s): N30.00 - Acute cystitis without hematuria Is this a current diagnosis for this admission?: Yes Plan: Urine culture grew Klebsiella sensitive to cephalosporins (not ESBL). Will switch meropenem to Rocephin. 05/23: Continue Rocephin. (3) Chronic atrial fibrillation Is this a current diagnosis for this admission?: Yes Plan: Continue metoprolol and Cardizem. Continue Coumadin. 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
--- NOTE | 2019-05-23 19:25 | Progress Note ---
Provider Note Provider Note: CARDIOLOGY PROGRESS NOTE by Dr. Catrachita Love on 05/23/2019. SUBJECTIVE: The patient as per the daughter was sitting up the chair after doing some rehab. But when she got back into the bed the patient started complaining of nausea and became very agitated and confused. Her heart rate went up into the 120s to the 130s. And transiently heart rate coming back to the 110s. The patient does appear to be agitated. But on questioning denies any chest pain or discomfort. There is no shortness of breath. PHYSICAL EXAMINATION: The patient appears to be agitated. And is confused. Selected Entries 05/23/19 05/23/19 12:00 16:48 Temperature 98.0 F 97.3 F Temperature Oral Oral Source Pulse Rate 74 121 H Respiratory 19 18 Rate Blood Pressure 124/67 152/93 H [Right Upper Arm] Blood Pressure 86 112 Mean [Right Upper Arm] Blood Pressure Supine Position [Right Upper Arm] O2 Sat by Pulse 93 93 Oximetry Oxygen Delivery Room Air Room Air Method ( includes room air) HEAD: Is atraumatic normocephalic. EYES: Pupils are equal round regular reactive light accommodation. ENT is negative NECK: Supple. There is no JVD. Carotids are equal THERE IS NO BRUITS. THERE IS NO LYMPHADENOPATHY. Lungs: Trachea central. There is no accessory muscle respiration use. Lungs are clear to auscultation percussion. HEART: S1-S2 is heard there is no S3 gallop. There is no S4 gallop. There is S1 is of variable intensity. There is no rub. ABDOM EN: Is no hepatosplenomegaly bowel sounds well heard. EXTREMITIES: There is a soft cast in the site of the left humeral shaft. Femorals are diminished there is no femoral bruits leg pulses diminished. There is no pedal edema. There is no DVT or cellulitis. 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 There is no focal deficits. PSYCHIATRIC: The patient not with a full mental faculties and hence psychiatric exam not done. Labs- All tests 24 hr 05/23/19 05/23/19 05/23/19 06:08 11:16 16:40 POC Glucose 92 100 152 H 05/23/19 21:29 POC Glucose 134 H Humerus X-Ray 05/17/19 00:00 IMPRESSION: Re- demonstration of a moderately displaced oblique fracture through the mid humeral diaphysis. No acute findings. Chest X-Ray 05/17/19 17:53 IMPRESSION: No evidence of acute cardiopulmonary abnormality. Head CT 05/17/19 20:34 IMPRESSION: No acute intracranial abnormality is identified. Fluid in the left maxillary sinus which may reflect acute sinusitis Generalized atrophy with microvascular ischemic changes. Head CT 05/23/19 00:00 IMPRESSION: MILD CHRONIC CHANGES OF ATROPHY AND MICROVASCULAR ISCHEMIA. NO ACUTE PROCESS. EVIDENCE OF ACUTE STROKE: NO. IMPRESSION/RECOMMENDATION: 1. Altered mental status most likely metabolic encephalopathy secondary to urinary tract infection. 2. Chronic atrial fibrillation. Continue current beta-sarah and Cardizem continue Coumadin. 3. Klebsiella urinary tract infection: Continue antibiotics. 4. Hypertension: Blood pressure well controlled. 5. Coronary artery disease remote history of RCA stent. No anginal symptoms. 6. History of fracture of left femoral shaft. Patient is being treated conservatively. 7. Dementia. Medications reviewed. Medical treatment and management plan and management regimen discussed with attending physician on the case. Medical decision making is of moderate complexity. 40 minutes spent on this patient with more than 50% of time spent in direct patient care. Follow-up
[2019-05-23] MEDS: WARFARIN SODIUM 5 MG TABLET PO SCH (20:59)
[2019-05-23] MEDS: ATORVASTATIN CALCIUM 20 MG TABLET PO SCH (20:59)
[2019-05-23] MEDS: PHARMACY COMMUNICATION ORDER MC SCH (20:59)
[2019-05-23] MEDS: ROPINIROLE HCL 0.25 MG TABLET PO SCH (20:59)
[2019-05-24] MEDS: LEVOTHYROXINE SODIUM 0.05 MG TABLET PO SCH (05:23)
[2019-05-24] MEDS: DILTIAZEM HCL 60 MG TABLET PO SCH ×3 (05:23→21:08)
[2019-05-24 06:52] LABS: INTERNATIONAL RATION (INR) 2.84; PROTHROMBIN TIME 30.5 SEC (11.4-15.4)
[2019-05-24] MEDS: ACETAMINOPHEN 325 MG TABLET PO PRN (08:08)
[2019-05-24] MEDS: METFORMIN HCL 500 MG TABLET PO SCH ×2 (08:08→16:14)
[2019-05-24] MEDS: KETOROLAC TROMETHAMINE INJ/PF 30 MG/1 ML SDV IV PRN (09:04)
[2019-05-24] MEDS: FUROSEMIDE 20 MG TABLET PO SCH (13:18)
[2019-05-24] MEDS: FAMOTIDINE 20 MG TABLET PO SCH ×2 (13:18→21:09)
[2019-05-24] MEDS: METOPROLOL SUCCINATE 25 MG TAB.SR.24H PO SCH ×2 (13:20→21:08)
[2019-05-24] MEDS: DOCUSATE SODIUM 100 MG CAPSULE PO SCH ×2 (13:21→17:31)
[2019-05-24] MEDS: ASPIRIN 81 MG TABLET, ENT COATED PO SCH (13:21)
[2019-05-24] MEDS: POTASSIUM CHLORIDE 10 MEQ TABLET.ER PO SCH (13:21)
[2019-05-24] MEDS: RIVASTIGMINE 4.6 MG/24 HR PATCH.TD24 TD SCH (13:21)
[2019-05-24] MEDS: CEFTRIAXONE 1 GM/D5W RTU 1 GM/50 ML RTUPB IV SCH (13:23)
[2019-05-24] MEDS: LIDOCAINE 5% (700 MG) TRANSDERMAL ADH..PATCH TP SCH (13:23)
[2019-05-24] MEDS ORDERED: HYDROCODONE/ACETAMINOPHEN 5-325 MG (6 TAB/ER DISP) PO PRN (15:06)
[2019-05-24] MEDS ORDERED: HYDROCODONE/ACETAMINOPHEN 5-325 MG TABLET PO PRN (15:15)
--- NOTE | 2019-05-24 15:50 | RADIOLOGY REPORT (SQ) ---
EXAM DESCRIPTION: HUMERUS LEFT COMPLETED DATE/TIME: 05/24/2019 3:32 pm REASON FOR STUDY: reassess fracture alignment COMPARISON: 05/17/2019 NUMBER OF VIEWS: Two views. TECHNIQUE: Two radiographic images were acquired of the left humerus to include elbow and shoulder i n at least one projection. LIMITATIONS: None. FINDINGS: MINERALIZATION: Decreased. BONES: Re- demonstrated is the left midshaft obliquely oriented the humerus fracture with persistent medial displacement of the distal fracture fragment and minimal shortening. Decreased angulation fro m prior exam. No new fracture. SOFT TISSUES: No obvious swelling or foreign body. OTHER: No other significant finding. IMPRESSION: Left midshaft humerus fracture with 1 shaft medial displacement of the distal fracture f ragment, similar to prior. Decreased angulation. TECHNICAL DOCUMENTATION: JOB ID: [id number] [employer]- All Rights Reserved Reading location - IP/workstation name: [email or web address]
[2019-05-24 16:32] LABS: HEMATOCRIT 39.1 % (36.0-47.0); HEMOGLOBIN 13.1 g/dL (12.0-15.5); MEAN CORPUSCULAR HEMOGLOBIN 29.6 pg (27.0-33.4); MEAN CORPUSCULAR HGB CONC 33.5 g/dL (32.0-36.0); MEAN CORPUSCULAR VOLUME 88 fl (80-97); PLATELET COUNT 478 10^3/uL (150-450); RED BLOOD COUNT 4.43 10^6/uL (3.72-5.28); RED CELL DISTRIBUTION WIDTH 14.7 % (11.5-14.0); WHITE BLOOD COUNT 14.3 10^3/uL (4.0-10.5)
--- NOTE | 2019-05-24 18:38 | Progress Note ---
Provider Note Provider Note: CARDIOLOGY PROGRESS NOTE by Dr. Catrachita Ramos on 05/24/2019. SUBJECTIVE: The patient is less confused but still not oriented x3. She is not agitated today. She denies any chest pain or discomfort. There is no PND orthopnea or leg edema. There is no TIA CVA symptoms. Her left upper swelling is better. Her work-up for left upper arm DVT is negative. PHYSICAL EXAMINATION: The patient is well-built. Appears to be in no acute distress. Selected Entries 05/24/19 16:10 Temperature 98.1 F Temperature Oral Source Pulse Rate 68 Respiratory 15 Rate Blood Pressure 124/69 Blood Pressure 87 Mean BP Location Right Arm BP Position Supine O2 Sat by Pulse 94 Oximetry Oxygen Delivery Room Air Method HEAD: Is atraumatic normocephalic. EYES: Pupils are equal round regular reactive light accommodation. ENT is negative NECK: Supple. There is no JVD. Carotids are equal THERE IS NO BRUITS. THERE IS NO LYMPHADENOPATHY. Lungs: Trachea central. There is no accessory muscle respiration use. Lungs are clear to auscultation percussion. HEART: S1-S2 is heard there is no S3 gallop. There is no S4 gallop. There is S1 is of variable intensity. There is no rub. ABDOMEN: Is no hepatosplenomegaly bowel sounds well heard. EXTREMITIES: There is a soft cast in the site of the left humeral shaft. Femorals are diminished there is no femoral bruits leg pulses diminished. There is no pedal edema. There is no DVT or cellulitis. 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 There is no focal deficits. PSYCHIATRIC: The patient not with a full mental faculties and hence psychiatric exam not done. Labs- All tests 24 hr 05/24/19 05/24/19 05/24/19 06:00 06:00 11:23 WBC RBC Hgb Hct MCV MCH MCHC RDW Plt Count PT 30.5 H INR 2.84 POC Glucose 95 111 H 05/24/19 05/24/19 05/24/19 16:02 16:10 21:09 WBC 14.3 H RBC 4.43 Hgb 13.1 Hct 39.1 MCV 88 MCH 29.6 MCHC 33.5 RDW 14.7 H Plt Count 478 H PT INR POC Glucose 98 112 H Humerus X-Ray 05/17/19 00:00 IMPRESSION: Re- demonstration of a moderately displaced oblique fracture through the mid humeral diaphysis. No acute findings. Chest X-Ray 05/17/19 17:53 IMPRESSION: No evidence of acute cardiopulmonary abnormality. Head CT 05/17/19 20:34 IMPRESSION: No acute intracranial abnormality is identified. Fluid in the left maxillary sinus which may reflect acute sinusitis Generalized atrophy with microvascular ischemic changes. Head CT 05/23/19 00:00 IMPRESSION: MILD CHRONIC CHANGES OF ATROPHY AND MICROVASCULAR ISCHEMIA. NO ACUTE PROCESS. EVIDENCE OF ACUTE STROKE: NO. Humerus X-Ray 05/24/19 14:43 IMPRESSION: Left midshaft humerus fracture with 1 shaft medial displacement of the distal fracture fragment, similar to prior. Decreased angulation. Venous Doppler Study 05/24/19 14:43 IMPRESSION: No evidence of deep venous thrombosis in the left upper extremity. IMPRESSION/RECOMMENDATION: 1. Altered mental status most likely metabolic encephalopathy secondary to urinary tract infection. 2. Chronic atrial fibrillation. Continue current beta-sarah and Cardizem continue Coumadin. 3. Klebsiella urinary tract infection: Continue antibiotics. 4. Hypertension: Blood pressure well controlled. 5. Coronary artery disease remote history of RCA stent. No anginal symptoms. 6. History of fracture of left femoral shaft. Patient is being treated conservatively. 7. Dementia. Medications reviewed. Management plan discussed with the attending provider on the case. Medical decision making is of moderate complexity. 40 minutes spent on this patient with more than 50% of time spent in direct direct patient care. Will follow.
--- NOTE | 2019-05-24 20:37 | RADIOLOGY REPORT (SQ) ---
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 COMPARISON: None. TECHNIQUE: Grayscale, color Doppler, and spectral Doppler images of the left upper extremity were performed. FINDINGS: The internal jugular, subclavian, axillary, brachial, basilic, and cephalic veins are patent and compressible. Normal color Doppler blood flow and augmentation in the aforementioned veins. The distal veins are also patent. IMPRESSION: No evidence of deep venous thrombosis in the left upper extremity.
[2019-05-24] MEDS: ATORVASTATIN CALCIUM 20 MG TABLET PO SCH (21:08)
[2019-05-24] MEDS: ROPINIROLE HCL 0.25 MG TABLET PO SCH (21:08)
[2019-05-24] MEDS: WARFARIN SODIUM 5 MG TABLET PO SCH (21:09)
[2019-05-24] MEDS: PHARMACY COMMUNICATION ORDER MC SCH (21:10)
[2019-05-24] MEDS: GABAPENTIN 100 MG CAPSULE PO SCH (21:10)
[2019-05-25 03:49] LABS: APPEARANCE,URINE SLIGHTLY-CLOUDY; BILIRUBIN,URINE NEGATIVE (NEGATIVE); COLOR,URINE YELLOW; GLUCOSE, URINE NEGATIVE (NEGATIVE); KETONES,URINE NEGATIVE (NEGATIVE); LEUKOCYTE ESTERASE,URINE SMALL (NEGATIVE); NITRITE,URINE NEGATIVE (NEGATIVE); PROTEIN,URINE NEGATIVE (NEGATIVE); URINE SPECIFIC GRAVITY 1.014; UROBILINOGEN,URINE NEGATIVE mg/dL (<2.0)
[2019-05-25] MEDS: LEVOTHYROXINE SODIUM 0.05 MG TABLET PO SCH (06:31)
[2019-05-25] MEDS: DILTIAZEM HCL 60 MG TABLET PO SCH ×3 (06:31→22:10)
[2019-05-25 06:44] LABS: INTERNATIONAL RATION (INR) 3.66; PROTHROMBIN TIME 37.2 SEC (11.4-15.4)
[2019-05-25 06:58] LABS: ANION GAP 10 (5-19); BLOOD UREA NITROGEN 18 mg/dL (7-20); CALCIUM 8.9 mg/dL (8.4-10.2); CARBON DIOXIDE 27 mmol/L (22-30); CHLORIDE 101 mmol/L (98-107); GLUCOSE 88 mg/dL (75-110)
[2019-05-25 06:59] LABS: ABSOLUTE BASOPHILS # (AUTO) 0.1 10^3/uL (0.0-0.2); ABSOLUTE EOSINOPHILS # (AUTO) 0.2 10^3/uL (0.0-0.6); ABSOLUTE LYMPHOCYTES (AUTO) 2.3 10^3/uL (0.5-4.7); ABSOLUTE NEUT (AUTO) 8.1 10^3/uL (1.7-8.2); BASOPHILS % (AUTO) 0.7 % (0-2); HEMATOCRIT 39.8 % (36.0-47.0); HEMOGLOBIN 13.4 g/dL (12.0-15.5); LYMPHOCYTES % (AUTO) 19.7 % (13-45); MEAN CORPUSCULAR HEMOGLOBIN 29.5 pg (27.0-33.4); MEAN CORPUSCULAR HGB CONC 33.6 g/dL (32.0-36.0); MEAN CORPUSCULAR VOLUME 88 fl (80-97); MONOCYTES % (AUTO) 8.5 % (3-13); PLATELET COUNT 442 10^3/uL (150-450); RED BLOOD COUNT 4.54 10^6/uL (3.72-5.28); SEGMENTED NEUTROPHILS % (AUTO) 69.1 % (42-78); TOTAL CELLS COUNTED % (AUTO) 100 %; WHITE BLOOD COUNT 11.7 10^3/uL (4.0-10.5)
[2019-05-25] MEDS: METFORMIN HCL 500 MG TABLET PO SCH ×2 (09:36→15:20)
[2019-05-25] MEDS: DOCUSATE SODIUM 100 MG CAPSULE PO SCH ×2 (09:37→17:05)
[2019-05-25] MEDS: RIVASTIGMINE 4.6 MG/24 HR PATCH.TD24 TD SCH (09:37)
[2019-05-25] MEDS: POTASSIUM CHLORIDE 10 MEQ TABLET.ER PO SCH (09:37)
[2019-05-25] MEDS: FUROSEMIDE 20 MG TABLET PO SCH (09:37)
[2019-05-25] MEDS: ASPIRIN 81 MG TABLET, ENT COATED PO SCH (09:37)
[2019-05-25] MEDS: LIDOCAINE 5% (700 MG) TRANSDERMAL ADH..PATCH TP SCH (09:38)
[2019-05-25] MEDS: GABAPENTIN 100 MG CAPSULE PO SCH ×2 (09:38→22:09)
[2019-05-25] MEDS: CEFTRIAXONE 1 GM/D5W RTU 1 GM/50 ML RTUPB IV SCH (09:39)
[2019-05-25] MEDS: FAMOTIDINE 20 MG TABLET PO SCH ×2 (09:39→22:09)
[2019-05-25] MEDS: METOPROLOL SUCCINATE 25 MG TAB.SR.24H PO SCH ×2 (09:41→22:09)
[2019-05-25 11:43] LABS: APPEARANCE,URINE SLIGHTLY-CLOUDY; BILIRUBIN,URINE NEGATIVE (NEGATIVE); COLOR,URINE YELLOW; GLUCOSE, URINE NEGATIVE (NEGATIVE); KETONES,URINE NEGATIVE (NEGATIVE); LEUKOCYTE ESTERASE,URINE TRACE (NEGATIVE); NITRITE,URINE NEGATIVE (NEGATIVE); PROTEIN,URINE NEGATIVE (NEGATIVE); UROBILINOGEN,URINE NEGATIVE mg/dL (<2.0)
--- NOTE | 2019-05-25 15:06 | PDOC PROGRESS REPORT ---
Subjective Progress Note for:: 05/25/19 Subjective:: This is an 84-year-old female with a past medical history of Alzheimer's dementia, history of ESBL UTIs and chronic atrial fibrillation who was brought in due to confusion. Patient was admitted for encephalopathy secondary to urinary tract infection. Patient started on IV meropenem. She did show significant clinical improvement. 05/21: Upon encounter patient is oriented to person and place. She is also able to identify the month. She denies acute complaints. Urine culture grew Klebsiella sensitive to cephalosporins (not ESBL). We will switch meropenem to Rocephin. Patient is medically stable for discharge to SNF. 05/22: She had transient episode of confusion earlier this morning consistent with . Otherwise, no acute event overnight. Upon encounter, she appears comfortable. Denies chest pain or shortness of breath. Awaiting placement to SNF. 05/23: No acute event overnight. She complains of left shoulder and left arm pain this morning. Otherwise, he denies shortness of breath or chest pain. Patient is just awaiting placement to SNF. 05/24: Upon encounter this morning, patient complaining of left shoulder and left arm pain. She denies chest pain or shortness of breath. She was given Toradol and had significant relief and was able to get back to sleep. 05/25: No acute event overnight. Her pain is well controlled. She appears to be at her baseline mentation. She denies chest pain or shortness of breath. Discussed with daughter on bedside. She says they are still deciding between having the patient go to [place] versus [facility]. She expresses concern that the patient may need to be in the hospital for a few more days as she still had some breakthrough pain and swelling on her left arm. Discussed that we just repeated a humeral x-ray which showed a stable fracture and actually an improvement in the angulation. Also updated daughter that venous Doppler was done and ruled out any DVT on the left arm and that the swelling is soft tissue swelling which will take some time to completely resolve. She says that they will decide by this weeked which SNF/rehab they will prefer her mother to go to. Reason For Visit: ALTERED MENTAL STATUS Physical Exam Vital Signs: Temp Pulse Resp BP Pulse Ox 99.2 F 62 16 136/68 H 95 05/25/19 08:00 05/25/19 08:00 05/25/19 08:00 05/25/19 08:00 05/25/19 08:00 Intake & Output 05/24/19 05/25/19 05/26/19 06:59 06:59 06:59 Intake Total 316 410 Output Total 350 150 Balance -34 260 Weight 153 lb 7.068 oz 144 lb 13.499 oz General appearance: PRESENT: no acute distress, well-developed, well-nourished Head exam: PRESENT: atraumatic, normocephalic Eye exam: PRESENT: conjunctiva pink, EOMI, PERRLA. ABSENT: scleral icterus Ear exam: PRESENT: normal external ear exam Mouth exam: PRESENT: moist, tongue midline Neck exam: ABSENT: carotid bruit, JVD, lymphadenopathy, thyromegaly Respiratory exam: PRESENT: clear to auscultation bianca. ABSENT: rales, rhonchi, wheezes Cardiovascular exam: PRESENT: RRR. ABSENT: diastolic murmur, rubs, systolic murmur Pulses: PRESENT: normal dorsalis pedis pul GI/Abdominal exam: PRESENT: normal bowel sounds, soft. ABSENT: distended, guarding, mass, organolmegaly, rebound, tenderness Rectal exam: PRESENT: deferred Neurological exam: PRESENT: alert, awake, oriented to person, CN II-XII grossly intact. ABSENT: motor sensory deficit Results Laboratory Results: 05/25/19 06:09 05/25/19 06:09 05/24/19 05/25/19 05/25/19 16:02 03:35 06:09 WBC 14.3 H 11.7 H RBC 4.43 4.54 Hgb 13.1 13.4 Hct 39.1 39.8 MCV 88 88 MCH 29.6 29.5 MCHC 33.5 33.6 RDW 14.7 H 15.0 H Plt Count 478 H 442 Seg Neutrophils % 69.1 Sodium Potassium Chloride Carbon Dioxide Anion Gap BUN Creatinine Est GFR ( Amer) Glucose Calcium Urine Color YELLOW Urine Appearance SLIGHTLY-CLOUDY Urine pH 5.0 Ur Specific [place] 1.014 Urine Protein NEGATIVE Urine Glucose (UA) NEGATIVE Urine Ketones NEGATIVE Urine Blood NEGATIVE Urine Nitrite NEGATIVE Ur Leukocyte Esterase SMALL H Urine WBC (Auto) 10 Urine RBC (Auto) 4 05/25/19 06:09 WBC RBC Hgb Hct MCV MCH MCHC RDW Plt Count Seg Neutrophils % Sodium 138.2 Potassium 4.0 Chloride 101 Carbon Dioxide 27 Anion Gap 10 BUN 18 Creatinine 0.77 Est GFR ( Amer) > 60 Glucose 88 Calcium 8.9 Urine Color Urine Appearance Urine pH Ur Specific [place] Urine Protein Urine Glucose (UA) Urine Ketones Urine Blood Urine Nitrite Ur Leukocyte Esterase Urine WBC (Auto) Urine RBC (Auto) 05/17/19 18:58 Troponin I < 0.012 Impressions: Chest X-Ray 05/17/19 17:53 IMPRESSION: No evidence of acute cardiopulmonary abnormality. Head CT 05/23/19 00:00 IMPRESSION: MILD CHRONIC CHANGES OF ATROPHY AND MICROVASCULAR ISCHEMIA. NO ACUTE PROCESS. EVIDENCE OF ACUTE STROKE: NO. Humerus X-Ray 05/24/19 14:43 IMPRESSION: Left midshaft humerus fracture with 1 shaft medial displacement of the distal fracture fragment, similar to prior. Decreased angulation. Venous Doppler Study 05/24/19 14:43 IMPRESSION: No evidence of deep venous thrombosis in the left upper extremity. Assessment and Plan - Diagnosis (1) Acute encephalopathy Is this a current diagnosis for this admission?: Yes Plan: Acute metabolic encephalopathy secondary to urinary tract infection and exacerbated by pain from fracture in a patient with dementia. Patient appears to be now at her baseline mentation but she does have waxing and waning episodes of confusion consistent with sundowning. (2) Urinary tract infection Qualifiers: Urinary tract infection type: acute cystitis Hematuria presence: without hematuria Qualified Code(s): N30.00 - Acute cystitis without hematuria Is this a current diagnosis for this admission?: Yes Plan: Urine culture grew Klebsiella sensitive to cephalosporins (not ESBL). Will switch meropenem to Rocephin. 05/23: On Rocephin. 05/25: Continue Rocephin for 1 more day. (3) Chronic atrial fibrillation Is this a current diagnosis for this admission?: Yes Plan: Continue metoprolol and Cardizem. Continue Coumadin. 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 - Time Time Spent with patient: 25-34 minutes
[2019-05-25] MEDS: ATORVASTATIN CALCIUM 20 MG TABLET PO SCH (22:09)
[2019-05-25] MEDS: ROPINIROLE HCL 0.25 MG TABLET PO SCH (22:10)
[2019-05-25] MEDS: PHARMACY COMMUNICATION ORDER MC SCH (22:10)
[2019-05-26] MEDS: LEVOTHYROXINE SODIUM 0.05 MG TABLET PO SCH (05:16)
[2019-05-26] MEDS: DILTIAZEM HCL 60 MG TABLET PO SCH ×3 (05:16→21:53)
[2019-05-26 06:15] LABS: INTERNATIONAL RATION (INR) 3.65; PROTHROMBIN TIME 37.2 SEC (11.4-15.4)
[2019-05-26] MEDS: METFORMIN HCL 500 MG TABLET PO SCH ×2 (08:05→15:27)
[2019-05-26] MEDS: RIVASTIGMINE 4.6 MG/24 HR PATCH.TD24 TD SCH (09:51)
[2019-05-26] MEDS: GABAPENTIN 100 MG CAPSULE PO SCH ×2 (09:51→21:52)
[2019-05-26] MEDS: POTASSIUM CHLORIDE 10 MEQ TABLET.ER PO SCH (09:51)
[2019-05-26] MEDS: DOCUSATE SODIUM 100 MG CAPSULE PO SCH ×2 (09:51→17:02)
[2019-05-26] MEDS: ASPIRIN 81 MG TABLET, ENT COATED PO SCH (09:51)
[2019-05-26] MEDS: FAMOTIDINE 20 MG TABLET PO SCH ×2 (09:51→21:52)
[2019-05-26] MEDS: METOPROLOL SUCCINATE 25 MG TAB.SR.24H PO SCH ×2 (09:51→21:52)
[2019-05-26] MEDS: FUROSEMIDE 20 MG TABLET PO SCH (09:51)
[2019-05-26] MEDS: CEFTRIAXONE 1 GM/D5W RTU 1 GM/50 ML RTUPB IV SCH (09:52)
[2019-05-26] MEDS: LIDOCAINE 5% (700 MG) TRANSDERMAL ADH..PATCH TP SCH (10:02)
--- NOTE | 2019-05-26 11:48 | PDOC PROGRESS REPORT ---
Subjective Progress Note for:: 05/26/19 Subjective:: The patient is doing well today, still pleasant and demented at baseline. Reason For Visit: ALTERED MENTAL STATUS Physical Exam Vital Signs: Temp Pulse Resp BP Pulse Ox 97.7 F 70 16 126/62 H 92 05/26/19 08:37 05/26/19 08:37 05/26/19 08:37 05/26/19 08:37 05/26/19 08:37 Intake & Output 05/25/19 05/26/19 05/27/19 06:59 06:59 06:59 Intake Total 410 510 Output Total 150 Balance 260 510 Weight 65.7 kg Physical Exam: General appearance: PRESENT: no acute distress, sleeping in and out, well- nourished Head exam: PRESENT: atraumatic, normocephalic Eye exam: PRESENT: EOMI Ear exam: PRESENT: normal external ear exam Mouth exam: PRESENT: neck supple Neck exam: ABSENT: tracheal deviation Respiratory exam: PRESENT: symmetrical, unlabored. ABSENT: accessory muscle use, wheezes Pulses: PRESENT: normal radial pulses, normal dorsalis pedis pulse Vascular exam: PRESENT: normal capillary refill GI/Abdominal exam: ABSENT: distended, firm Extremities exam: PRESENT: full ROM of right shoulders, right elbow, wrists, knees, hips and ankles without pain Musculoskeletal exam: PRESENT: full ROM, normal inspection of all 4 extremities aside from that noted below. Neurological exam: PRESENT: alert, awake, oriented to person, oriented to place, oriented to time Psychiatric exam: PRESENT: appropriate affect. ABSENT: agitated Focused psych exam: ABSENT: catatonic, unable to answer detailed questions Skin exam: PRESENT: intact. ABSENT: dry All as above aside from that noted in the HPI and the following: LUE Compartments soft, skin intact Severe swelling to the entire UE, skin very ecchymotic but intact Hand swollen, limiting motion Grossly NVI No TTP to elbow and distal, pain with any motion of humerus, humerus in Mar type brace. -Considerable improvement in swelling since my past visit Results Laboratory Results: 05/25/19 06:09 05/25/19 06:09 05/17/19 18:58 Troponin I < 0.012 Impressions: Chest X-Ray 05/17/19 17:53 IMPRESSION: No evidence of acute cardiopulmonary abnormality. Head CT 05/23/19 00:00 IMPRESSION: MILD CHRONIC CHANGES OF ATROPHY AND MICROVASCULAR ISCHEMIA. NO ACUTE PROCESS. EVIDENCE OF ACUTE STROKE: NO. Humerus X-Ray 05/24/19 14:43 IMPRESSION: Left midshaft humerus fracture with 1 shaft medial displacement of the distal fracture fragment, similar to prior. Decreased angulation. Venous Doppler Study 05/24/19 14:43 IMPRESSION: No evidence of deep venous thrombosis in the left upper extremity. Assessment & Plan - Diagnosis (1) Humeral shaft fracture Is this a current diagnosis for this admission?: Yes Plan: She is doing well at this time. Her Mar brace was loose at the time of my evaluation but I re-fitted. Keep arm elevated. I did this for her today with pillows. She can follow-up with me in the office and 2 weeks time or sooner if needed. I will continue to check on her periodically while she is in house. - Time Time Spent with patient: Less than 15 minutes
--- NOTE | 2019-05-26 15:14 | PDOC PROGRESS REPORT ---
Subjective Progress Note for:: 05/26/19 Subjective:: This is an 84-year-old female with a past medical history of Alzheimer's dementia, history of ESBL UTIs and chronic atrial fibrillation who was brought in due to confusion. Patient was admitted for encephalopathy secondary to urinary tract infection. Patient started on IV meropenem. She did show significant clinical improvement. 05/21: Upon encounter patient is oriented to person and place. She is also able to identify the month. She denies acute complaints. Urine culture grew Klebsiella sensitive to cephalosporins (not ESBL). We will switch meropenem to Rocephin. Patient is medically stable for discharge to SNF. 05/22: She had transient episode of confusion earlier this morning consistent with . Otherwise, no acute event overnight. Upon encounter, she appears comfortable. Denies chest pain or shortness of breath. Awaiting placement to SNF. 05/23: No acute event overnight. She complains of left shoulder and left arm pain this morning. Otherwise, he denies shortness of breath or chest pain. Patient is just awaiting placement to SNF. 05/24: Upon encounter this morning, patient complaining of left shoulder and left arm pain. She denies chest pain or shortness of breath. She was given Toradol and had significant relief and was able to get back to sleep. 05/25: No acute event overnight. Her pain is well controlled. She appears to be at her baseline mentation. She denies chest pain or shortness of breath. Discussed with daughter on bedside. She says they are still deciding between having the patient go to [facility] versus [facility]. She expresses concern that the patient may need to be in the hospital for a few more days as she still had some breakthrough pain and swelling on her left arm. Discussed that we just repeated a humeral x-ray which showed a stable fracture and actually an improvement in the angulation. Also updated daughter that venous Doppler was done and ruled out any DVT on the left arm and that the swelling is soft tissue swelling which will take some time to completely resolve. She says that they will decide by this weeked which SNF/rehab they will prefer her mother to go to. 05/26: No acute issues. She denies acute complaints. Her pain is very well controlled. Patient is at her baseline mentation. Rediscussed with her three daughters in length that she has been stable for discharge for the past 48 hours. They have expressed they are leaning towards having the patient go to [facility]. Discharge planning updated. Anticipating discharging patient to [facility] tomorrow. Soft tissue swelling on the left arm continue to improve. Reason For Visit: ALTERED MENTAL STATUS Physical Exam Vital Signs: Temp Pulse Resp BP Pulse Ox 97.7 F 70 16 126/62 H 92 05/26/19 08:37 05/26/19 08:37 05/26/19 08:37 05/26/19 08:37 05/26/19 08:37 Intake & Output 05/25/19 05/26/19 05/27/19 06:59 06:59 06:59 Intake Total 410 510 Output Total 150 Balance 260 510 Weight 144 lb 13.499 oz General appearance: PRESENT: no acute distress, well-developed, well-nourished Head exam: PRESENT: atraumatic, normocephalic Eye exam: PRESENT: conjunctiva pink, EOMI, PERRLA. ABSENT: scleral icterus Ear exam: PRESENT: normal external ear exam Mouth exam: PRESENT: moist, tongue midline Neck exam: ABSENT: carotid bruit, JVD, lymphadenopathy, thyromegaly Respiratory exam: PRESENT: clear to auscultation bianca. ABSENT: rales, rhonchi, wheezes Cardiovascular exam: PRESENT: RRR. ABSENT: diastolic murmur, rubs, systolic murmur Pulses: PRESENT: normal dorsalis pedis pul GI/Abdominal exam: PRESENT: normal bowel sounds, soft. ABSENT: distended, guarding, mass, organolmegaly, rebound, tenderness Rectal exam: PRESENT: deferred Extremities exam: PRESENT: other - soft tissue swelling, left arm Neurological exam: PRESENT: alert, awake, oriented to person, CN II-XII grossly intact. ABSENT: motor sensory deficit Results Laboratory Results: 05/25/19 06:09 05/25/19 06:09 05/25/19 11:20 Urine Color YELLOW Urine Appearance SLIGHTLY-CLOUDY Urine pH 5.0 Ur Specific [place] 1.010 Urine Protein NEGATIVE Urine Glucose (UA) NEGATIVE Urine Ketones NEGATIVE Urine Blood NEGATIVE Urine Nitrite NEGATIVE Ur Leukocyte Esterase TRACE H Urine WBC (Auto) 2 Urine RBC (Auto) 3 05/17/19 18:58 Troponin I < 0.012 Impressions: Chest X-Ray 11/29/19 17:53 IMPRESSION: No evidence of acute cardiopulmonary abnormality. Head CT 05/23/19 00:00 IMPRESSION: MILD CHRONIC CHANGES OF ATROPHY AND MICROVASCULAR ISCHEMIA. NO ACUTE PROCESS. EVIDENCE OF ACUTE STROKE: NO. Humerus X-Ray 05/24/19 14:43 IMPRESSION: Left midshaft humerus fracture with 1 shaft medial displacement of the distal fracture fragment, similar to prior. Decreased angulation. Venous Doppler Study 05/24/19 14:43 IMPRESSION: No evidence of deep venous thrombosis in the left upper extremity. Assessment and Plan - Diagnosis (1) Acute encephalopathy Is this a current diagnosis for this admission?: Yes Plan: Acute metabolic encephalopathy secondary to urinary tract infection and exacerbated by pain from fracture in a patient with dementia. Patient appears to be now at her baseline mentation but she does have waxing and waning episodes of confusion consistent with sundowning. (2) Urinary tract infection Qualifiers: Urinary tract infection type: acute cystitis Hematuria presence: without hematuria Qualified Code(s): N30.00 - Acute cystitis without hematuria Is this a current diagnosis for this admission?: Yes Plan: Urine culture grew Klebsiella sensitive to cephalosporins (not ESBL). Will switch meropenem to Rocephin. 05/23: On Rocephin. 05/25: Continue Rocephin for 1 more day. 05/26: DC Rocephin. (3) Chronic atrial fibrillation Is this a current diagnosis for this admission?: Yes Plan: Continue metoprolol and Cardizem. Continue Coumadin. 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 - Time Time Spent with patient: 25-34 minutes
[2019-05-26 15:56] LABS: ALBUMIN 3.7 g/dL (3.5-5.0); ALKALINE PHOSPHATASE 425 U/L (38-126); ASPARTATE AMINO TRANSFERASE 50 U/L (14-36); BILIRUBIN,DIRECT 0.2 mg/dL (0.0-0.4); BILIRUBIN,TOTAL 0.8 mg/dL (0.2-1.3); TOTAL PROTEIN 7.5 g/dL (6.3-8.2)
[2019-05-26] MEDS: ATORVASTATIN CALCIUM 20 MG TABLET PO SCH (21:52)
[2019-05-26] MEDS ORDERED: ROPINIROLE HCL 0.25 MG TABLET PO SCH (22:00)
[2019-05-26] MEDS: PHARMACY COMMUNICATION ORDER MC SCH (22:05)
[2019-05-27] MEDS: DILTIAZEM HCL 60 MG TABLET PO SCH ×2 (05:02→15:30)
[2019-05-27] MEDS: LEVOTHYROXINE SODIUM 0.05 MG TABLET PO SCH (05:02)
[2019-05-27 07:51] LABS: INTERNATIONAL RATION (INR) 2.96; PROTHROMBIN TIME 31.4 SEC (11.4-15.4)
[2019-05-27] MEDS: ACETAMINOPHEN 325 MG TABLET PO PRN (10:02)
[2019-05-27] MEDS: POTASSIUM CHLORIDE 10 MEQ TABLET.ER PO SCH (10:03)
[2019-05-27] MEDS: FUROSEMIDE 20 MG TABLET PO SCH (10:03)
[2019-05-27] MEDS: ASPIRIN 81 MG TABLET, ENT COATED PO SCH (10:03)
[2019-05-27] MEDS: DOCUSATE SODIUM 100 MG CAPSULE PO SCH (10:03)
[2019-05-27] MEDS: FAMOTIDINE 20 MG TABLET PO SCH (10:03)
[2019-05-27] MEDS: METOPROLOL SUCCINATE 25 MG TAB.SR.24H PO SCH (10:03)
[2019-05-27] MEDS: METFORMIN HCL 500 MG TABLET PO SCH (10:03)
[2019-05-27] MEDS: LIDOCAINE 5% (700 MG) TRANSDERMAL ADH..PATCH TP SCH (10:04)
[2019-05-27] MEDS: RIVASTIGMINE 4.6 MG/24 HR PATCH.TD24 TD SCH (10:05)
[2019-05-27] MEDS: GABAPENTIN 100 MG CAPSULE PO SCH (10:07)
[2019-05-27 12:39] VITALS: BP 126/54
--- NOTE | 2019-05-27 14:32 | PDOC TRANSFER SUMMARY ---
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 patch Gabapentin [Neurontin 100 mg Capsule] 100 mg PO Q12 #30 capsule Metoprolol Succinate [Toprol Xl 25 mg Tab.sr] 25 mg PO Q12 #60 tab.sr.24h Home Medications: Aspirin [Adult Low Dose Aspirin EC] 81 mg PO DAILY 05/18/19 Atorvastatin Calcium [Lipitor 20 mg Tablet] 20 mg PO QHS 05/18/19 Ergocalciferol (Vitamin D2) [Vitamin D2] 50,000 unit PO WE@1000 05/18/19 Furosemide [Lasix 20 mg Tablet] 20 mg PO DAILY 05/18/19 Hydrocodone/Acetaminophen [Truro 5-325 Tablet] 1 each PO Q6HP PRN 05/18/19 Levothyroxine Sodium [Synthroid 0.025 mg Tablet] 0.025 mg PO DAILY 05/18/19 Metformin HCl 500 mg PO QHS 05/18/19 Multivitamin [Multiple Vitamins] 1 each PO DAILY 05/18/19 Omeprazole 20 mg PO DAILY 05/18/19 Potassium Chloride [Klor-Con 10 Meq Tablet ER] 10 meq PO Q12 05/18/19 Rivastigmine [Exelon 4.6 mg/24 Hr Transdermal Patch] 1 each TD DAILY 05/18/19 Ropinirole HCl [Requip 0.25 mg Tablet] 0.25 mg PO QHS 05/18/19 Diltiazem HCl [Cardizem 30 mg Tablet] 1 tab PO Q8H #60 tab 05/27/19 Docusate Sodium [Colace 100 mg Capsule] 100 mg PO BID PRN #20 capsule 05/27/19 Gabapentin [Neurontin 100 mg Capsule] 100 mg PO Q12 #30 capsule 05/27/19 Lidocaine [Lidoderm 5% (700 mg) Transdermal Patch] 1 patch TP DAILY #8 adh..patch 05/27/19 Metoprolol Succinate [Toprol Xl 25 mg Tab.sr] 25 mg PO Q12 #60 tab.sr.24h 05/27/19 History of Present Illiness History of Present Illness: Admitting hospitalist's H&P: DEVANG CORONEL is a 84 year old female who presented to the emergency room with a 2-day history of altered mental status. Patient has chronic Alzheimer's dementia but her daughter has noted a dramatic increase in her level of confusion accompanied by hallucinations over the last 2 days. Patient is unable to contribute to her medical history due to her dementia. The family has not noted additional accompanying or associated signs and symptoms. Her family admits prior similar episodes with urinary tract infections. Patient recently had a fracture of her humerus which was treated conservatively and she also was noted to have had a urinary tract infection with an extended spectrum beta- lactamase E. coli. She recently moved from living at home to living at [facility] assisted living following her hospitalization for the humeral fracture. The family has not been able to identify any additional aggravating or ameliorating factors for her altered mental status. In the emergency room the patient was found to have a positive urine nitrite and given her history of ESBL E. coli IV antibiotic therapy was initiated. Patient was subsequently admitted to hospital for further evaluation and treatment. Hospital Course Hospital Course: This is an 84-year-old female with a past medical history of Alzheimer's dementia, history of ESBL UTIs and chronic atrial fibrillation who was brought in due to confusion. Patient was admitted for encephalopathy secondary to urinary tract infection. Patient started on IV meropenem. She did show significant clinical improvement. Urine culture grew Klebsiella sensitive to cephalosporins (not ESBL). Meropenem was switched to Rocephin. She did complete IV antibiotics. Daughter initially expressed concern that the patient may need to be in the hospital for a few more days as she still had some breakthrough pain and swelling on her left arm. Discussed that repeat humeral x-ray showed a stable fracture and actually an improvement in the angulation. Also updated daughter that venous Doppler was done and ruled out any DVT on the left arm and that the swelling is soft tissue swelling which will take some time to completely resolve. She will closely follow-up with orthopedics to reevaluate fracture healing. Patient's INR has been close to supratherapeutic levels hence her Coumadin was held. INR today is 2.96. Recommend to hold off on Coumadin and repeat PT/INR in 3 days. Follow-up with PCP on next INR and reconsider decreasing dose of Coumadin depending on INR result. Physical Exam Vital Signs: Temp Pulse Resp BP Pulse Ox 98.2 F 72 14 123/50 L 94 05/27/19 07:44 05/27/19 07:44 05/27/19 07:44 05/27/19 07:44 05/27/19 07:44 Intake & Output 05/26/19 05/27/19 05/28/19 06:59 06:59 06:59 Intake Total 510 688 Balance 510 688 Weight 135 lb 9.349 oz General appearance: PRESENT: no acute distress, well-developed, well-nourished Head exam: PRESENT: atraumatic, normocephalic Eye exam: PRESENT: conjunctiva pink, EOMI, PERRLA. ABSENT: scleral icterus Ear exam: PRESENT: normal external ear exam Mouth exam: PRESENT: moist, tongue midline Neck exam: ABSENT: carotid bruit, JVD, lymphadenopathy, thyromegaly Respiratory exam: PRESENT: clear to auscultation bianca. ABSENT: rales, rhonchi, wheezes Cardiovascular exam: PRESENT: RRR. ABSENT: diastolic murmur, rubs, systolic murmur Pulses: PRESENT: normal dorsalis pedis pul GI/Abdominal exam: PRESENT: normal bowel sounds, soft. ABSENT: distended, guarding, mass, organolmegaly, rebound, tenderness Rectal exam: PRESENT: deferred Neurological exam: PRESENT: alert, awake, oriented to person, oriented to place, oriented to time - May 2019, CN II-XII grossly intact. ABSENT: motor sensory deficit Results Laboratory Results: WBC 11.7 10^3/uL (4.0-10.5) H 05/25/19 06:09 RBC 4.54 10^6/uL (3.72-5.28) 05/25/19 06:09 Hgb 13.4 g/dL (12.0-15.5) 05/25/19 06:09 Hct 39.8 % (36.0-47.0) 05/25/19 06:09 MCV 88 fl (80-97) 05/25/19 06:09 MCH 29.5 pg (27.0-33.4) 05/25/19 06:09 MCHC 33.6 g/dL (32.0-36.0) 05/25/19 06:09 RDW 15.0 % (11.5-14.0) H 05/25/19 06:09 Plt Count 442 10^3/uL (150-450) 05/25/19 06:09 Lymph % (Auto) 19.7 % (13-45) 05/25/19 06:09 [place] % (Auto) 8.5 % (3-13) 05/25/19 06:09 Eos % (Auto) 2.0 % (0-6) 05/25/19 06:09 Baso % (Auto) 0.7 % (0-2) 05/25/19 06:09 Absolute Neuts (auto) 8.1 10^3/uL (1.7-8.2) 05/25/19 06:09 Absolute Lymphs (auto) 2.3 10^3/uL (0.5-4.7) 05/25/19 06:09 Absolute Monos (auto) 1.0 10^3/uL (0.1-1.4) 05/25/19 06:09 Absolute Eos (auto) 0.2 10^3/uL (0.0-0.6) 05/25/19 06:09 Absolute Basos (auto) 0.1 10^3/uL (0.0-0.2) 05/25/19 06:09 Seg Neutrophils % 69.1 % (42-78) 05/25/19 06:09 PT 31.4 SEC (11.4-15.4) H 05/27/19 07:19 INR 2.96 05/27/19 07:19 INR (Anticoag Therapy) Cancelled 05/22/19 04:54 APTT 38.3 SEC (23.5-35.8) H 05/17/19 18:58 Sodium 138.2 mmol/L (137-145) 05/25/19 06:09 Potassium 4.0 mmol/L (3.6-5.0) 05/25/19 06:09 Chloride 101 mmol/L (98-107) 05/25/19 06:09 Carbon Dioxide 27 mmol/L (22-30) 05/25/19 06:09 Anion Gap 10 (5-19) 05/25/19 06:09 BUN 18 mg/dL (7-20) 05/25/19 06:09 Creatinine 0.77 mg/dL (0.52-1.25) 05/25/19 06:09 Est GFR ( Amer) > 60 (>60) 05/25/19 06:09 Est GFR (MDRD) Non-Af > 60 (>60) 05/25/19 06:09 Glucose 88 mg/dL (75-110) 05/25/19 06:09 POC Glucose 111 mg/dL (70-110) H 05/27/19 06:16 Hemoglobin A1c % 6.4 % (4.7-6.0) H 05/19/19 06:18 Calcium 8.9 mg/dL (8.4-10.2) 05/25/19 06:09 Magnesium 2.1 mg/dL (1.6-2.3) 05/20/19 04:33 Total Bilirubin 0.8 mg/dL (0.2-1.3) 05/26/19 06:09 Direct Bilirubin 0.2 mg/dL (0.0-0.4) 05/26/19 06:09 Neonat Total Bilirubin Not Reportable 05/26/19 06:09 Neonat Direct Bilirubin Not Reportable 05/26/19 06:09 Neonat Indirect Bili Not Reportable 05/26/19 06:09 AST 50 U/L (14-36) H 05/26/19 06:09 ALT 22 U/L (<35) 05/26/19 06:09 Alkaline Phosphatase 425 U/L (38-126) H 05/26/19 06:09 Troponin I < 0.012 ng/mL 05/17/19 18:58 Total Protein 7.5 g/dL (6.3-8.2) 05/26/19 06:09 Albumin 3.7 g/dL (3.5-5.0) 05/26/19 06:09 TSH 3.63 uIU/mL (0.47-4.68) 05/18/19 04:45 Urine Color YELLOW 05/25/19 11:20 Urine Appearance SLIGHTLY-CLOUDY 05/25/19 11:20 Urine pH 5.0 (5.0-9.0) 05/25/19 11:20 Ur Specific [place] 1.010 05/25/19 11:20 Urine Protein NEGATIVE mg/dL (NEGATIVE) 05/25/19 11:20 Urine Glucose (UA) NEGATIVE mg/dL (NEGATIVE) 05/25/19 11:20 Urine Ketones NEGATIVE mg/dL (NEGATIVE) 05/25/19 11:20 Urine Blood NEGATIVE (NEGATIVE) 05/25/19 11:20 Urine Nitrite NEGATIVE (NEGATIVE) 05/25/19 11:20 Urine Bilirubin NEGATIVE (NEGATIVE) 05/25/19 11:20 Urine Urobilinogen NEGATIVE mg/dL (<2.0) 05/25/19 11:20 Ur Leukocyte Esterase TRACE (NEGATIVE) H 05/25/19 11:20 Urine WBC (Auto) 2 /HPF 05/25/19 11:20 Urine RBC (Auto) 3 /HPF 05/25/19 11:20 U Hyaline Cast (Auto) 1 /LPF 05/25/19 11:20 Urine Bacteria (Auto) TRACE /HPF 05/25/19 11:20 Squamous Epi Cells Auto 2 /HPF 05/25/19 11:20 Urine Mucus (Auto) RARE /LPF 05/25/19 11:20 Urine Ascorbic Acid NEGATIVE (NEGATIVE) 05/25/19 11:20 05/17/19 18:58 Troponin I < 0.012 Impressions: Humerus X-Ray 05/17/19 00:00 IMPRESSION: Re- demonstration of a moderately displaced oblique fracture through the mid humeral diaphysis. No acute findings. Chest X-Ray 05/17/19 17:53 IMPRESSION: No evidence of acute cardiopulmonary abnormality. Head CT 05/17/19 20:34 IMPRESSION: No acute intracranial abnormality is identified. Fluid in the left maxillary sinus which may reflect acute sinusitis Generalized atrophy with microvascular ischemic changes. Head CT 05/23/19 00:00 IMPRESSION: MILD CHRONIC CHANGES OF ATROPHY AND MICROVASCULAR ISCHEMIA. NO ACUTE PROCESS. EVIDENCE OF ACUTE STROKE: NO. Humerus X-Ray 05/24/19 14:43 IMPRESSION: Left midshaft humerus fracture with 1 shaft medial displacement of the distal fracture fragment, similar to prior. Decreased angulation. Venous Doppler Study 05/24/19 14:43 IMPRESSION: No evidence of deep venous thrombosis in the left upper extremity. Stroke Is this a Stroke Patient?: No Acute Heart Failure - Is this a Heart Failure Patient?: No
[2019-05-27 15:45] LABS: HEMATOCRIT 36.7 % (36.0-47.0); HEMOGLOBIN 12.3 g/dL (12.0-15.5); MEAN CORPUSCULAR HEMOGLOBIN 29.5 pg (27.0-33.4); MEAN CORPUSCULAR HGB CONC 33.6 g/dL (32.0-36.0); MEAN CORPUSCULAR VOLUME 88 fl (80-97); PLATELET COUNT 432 10^3/uL (150-450); RED BLOOD COUNT 4.18 10^6/uL (3.72-5.28); WHITE BLOOD COUNT 11.8 10^3/uL (4.0-10.5)
[2019-05-27] MEDS ORDERED: WARFARIN SODIUM 4 MG TABLET PO SCH (22:00)
== END 2019-05-27 16:48 | DRG 689 ==
LOC: ER 16:16 → EH 22:09 → 4S 23:20
PROVIDERS: ADMIT Emergency Medicine; ATTEND Emergency Medicine
DX: N30.00 Acute cystitis without hematuria (principal); G93.41 Metabolic encephalopathy; I48.20 Chronic atrial fibrillation, unspecified; G30.1 Alzheimer's disease with late onset; F02.80 Dementia in other diseases classified elsewhere, unspecified severity, without behavioral disturbance, psychotic disturbance, mood disturbance, and anxiety; B96.20 Unspecified Escherichia coli [E. coli] as the cause of diseases classified elsewhere; I25.10 Atherosclerotic heart disease of native coronary artery without angina pectoris; E78.5 Hyperlipidemia, unspecified; I10 Essential (primary) hypertension; J44.9 Chronic obstructive pulmonary disease, unspecified; E11.9 Type 2 diabetes mellitus without complications; K21.9 Gastro-esophageal reflux disease without esophagitis; M10.9 Gout, unspecified; B96.1 Klebsiella pneumoniae [K. pneumoniae] as the cause of diseases classified elsewhere; E03.9 Hypothyroidism, unspecified; X58.XXXD Exposure to other specified factors, subsequent encounter; E78.00 Pure hypercholesterolemia, unspecified; S52.332D Displaced oblique fracture of shaft of left radius, subsequent encounter for closed fracture with routine healing; Z79.899 Other long term (current) drug therapy; Z88.6 Allergy status to analgesic agent; Z88.1 Allergy status to other antibiotic agents; Z88.2 Allergy status to sulfonamides; Z91.018 Allergy to other foods; Z79.82 Long term (current) use of aspirin; Z79.84 Long term (current) use of oral hypoglycemic drugs; Z79.01 Long term (current) use of anticoagulants; Z95.5 Presence of coronary angioplasty implant and graft
CPT/HCPCS: 36415; 70450; 71045; 80048; 80053; 80076; 81001; 82962; 83036; 83735; 84443; 84484; 85025; 85027; 85610; 85730; 87086; 87088; 87186; 93005; 93010; 93971; 96365; 99285; J0360; J0696; J1160; J1885; J2060; J2185; J2405; J3490; J7040; J7120

== ENCOUNTER → 2019-08-23 | Outpatient (CLI) | payer MEDICARE, OTHER ==
--- NOTE | 2019-08-23 12:22 | RADIOLOGY REPORT (SQ) ---
EXAM DESCRIPTION: MRI LT UPPER EXTREMITY COMBO COMPLETED DATE/TIME: 08/23/2019 11:36 am REASON FOR STUDY: R22.32 LOCALIZED SWELLING, MASS AND LUMP, LEFT UPPER LIMB R22.32 LOCALIZED SWELLI NG, MASS AND LUMP, LEFT UPPER LIMB COMPARISON: 05/09/2019 radiographs TECHNIQUE: Multiplanar imaging of the left wrist to include T1-weighted, postcontrast T1-weighted, a nd T2-weighted images. CONTRAST TYPE AND DOSE: 10 mL Dotarem. RENAL FUNCTION: Not indicated. ACR Type II contrast agent associated with few, if any, unconfounded cases of NSF LIMITATIONS: Limiting motion artifact. Best images possible per technologist. FINDINGS: BONE MARROW: No evidence of fracture. Degenerative changes in the carpus to include joint space narrowing throughout. Minimal radial sided joint effusion. No aggressive erosions or areas o f bone destruction. Degenerative related subchondral cysts particularly at the thumb base. SOFT TISSUES: Soft tissue edema is suggested in the thenar eminence, possibly related to flexor polli cis strain. Correlate with symptoms here. No enhancing fluid collections or regional masses. Mild enhancement along the radial aspect of the wrist may reflect synovitis. OTHER: No other significant finding. IMPRESSION: 1. Limited study. 2. Radial sided joint fluid, degenerative changes and synovitis. 3. Flexor pollicis muscular strain suspected. TECHNICAL DOCUMENTATION: JOB ID: [id number] 2010 [employer]- All Rights Reserved Reading location - IP/workstation name: [email or web address]
== END ==
LOC: RAD 09:49
PROVIDERS: ATTEND Orthopaedic Surgery
DX: M25.432 Effusion, left wrist (principal); M65.832 Other synovitis and tenosynovitis, left forearm
CPT/HCPCS: 82565; 73220; A9576